=== PATIENT | male | born 1955 | race Caucasian/White ===

== ENCOUNTER 2017-01-20 10:00 | Inpatient (IN) | payer OTHER ==
[2017-01-20] VITALS (18 sets, daily range): BP systolic 59–201; BP diastolic 44–117; PULSE 42–105; RESP 22–33; O2SAT 82–100
[~2017-01-20] VITALS: Ht 188 cm; Wt 100.1 kg
[~2017-01-20 10:00] MED LIST: ACET-1890 PO; ASPI81TA3 PO; ATOR40TA69 PO; CLOP75TA3 PO; ISOS30TA PO; LISI-571 PO
--- NOTE | 2017-01-20 10:02 | ED.REPORT ---
HPI-Cardiac Arrest Date of Service Jan 20, 2017 ED Provider: Dr. Bueno Pt is a 61 year old male who presents to the ED via EMS post-arrest, intubated and unconscious. Per EMS, he was complaining of chest pain for the last couple of days. Today, he took nitroglycerin, and 5 minutes later he lost consciousness. The family was unable to start chest compressions, for they were unable to transport him from the cough to the floor. EMS arrived on the scene and began chest compressions. It was noted that he was in v-fib arrest. He was shocked several times and successfully intubated. He began spontaneously breathing on his own, per EMS he was then sedated. Nursing Notes Stated Complaint: POST CPR Nursing Notes Reviewed: Yes Allergies: Coded Allergies: No Known Allergies (Unverified , 05/16/14) Scheduled Aspirin Chew (Aspirin Chew) 81 Mg Tab.chew 81 MG PO DAILY Atorvastatin Calcium (Atorvastatin Calcium) 40 Mg Tablet 40 MG PO DAILY Clopidogrel Bisulfate (Plavix) 75 Mg Tablet 75 MG PO DAILY Isosorbide Mononitrate (Imdur) 30 Mg Tab.er.24h 30 MG PO DAILY Lisinopril (Lisinopril) 5 Mg Tablet 5 MG PO BID Scheduled PRN Acetaminophen (Tylenol) 325 Mg Tablet 650 MG PO PRN For Pain General Time Seen by Provider: 10:08 Chief Complaint Cardiac arrest, found dwn Down Time Prior to EMS: Unknown Total Time Arrest to Arrival: Unknown Context: Resuscitation: Initial rhythm V Fib Hx Obtained From: EMS Arrived By: Ambulance Onset Occurred: Just prior to arrival Symptom Duration: Since onset Progression Since Onset: Unchanged Similar Sx Previous: Yes Past Medical History Past Medical History NSTEMI in 2013 Reports: Coronary artery disease Smoking History Current Every Day Smoker Ambulatory Status Independent Review of Systems Unable to Obtain ROS Patient condition, Intubated Complete sys rev & neg: except as marked. Physical Exam Initial Vital Signs Vital Signs (First) Date Time Temp Pulse Resp B/P Pulse Ox O2 Delivery O2 Flow Rate FiO2 01/20/17 10:09 78 24 175/97 82 Mechanical Ventilator 01/20/17 10:32 34.1 See paper chart Initial VS: Reviewed Alertness: Positive: Sedated Intubated Unconsious Respiratory / Chest: Breath sounds = bilat Resp Distress / Stridor: Positive: Intubated Cardiovascular: Heart rate NL, Regular rhythm, Heart sounds NL Abdomen: Atraumatic, Soft, Non-tender, No guarding, No rebound Interpretation & Diagnostics Lab Results Interpretation Result Diagram: 01/20/17 1010 01/20/17 1010 Test 01/20/17 10:10 White Blood Count 17.2th/mm3 (3.8-10.1) Red Blood Count 5.37mil/mm3 (4.40-5.80) Hemoglobin 17.0g/dL (13.8-17.2) Hematocrit 50.6% (41.0-50.0) Mean Corpuscular Volume 94.2fL (81-100) Mean Corpuscular Hemoglobin 31.7pg (27.0-35.0) Mean Corpuscular Hemoglobin Concent 33.6% (32.0-37.0) Red Cell Distribution Width 12.4% (12.3-15.4) Platelet Count 149bil/L (150-400) Neutrophils (%) (Auto) 52.7% (40-74) Lymphocytes (%) (Auto) 33.8% (14-46) Monocytes (%) (Auto) 5.0% (4-12) Eosinophils (%) (Auto) 1.6% (0-5) Basophils (%) (Auto) 0.5% (0-3) Prothrombin Time 11.7sec (8.1-12.5) Prothromb Time International Ratio 1.09ratio Activated Partial Thromboplast Time 26.4sec (22.8-33.0) Sodium Level 137mEq/L (134-144) Potassium Level 4.3mEq/L (3.5-5.2) Chloride Level 96mEq/L (97-108) Carbon Dioxide Level 16mmol/L (18-29) Blood Urea Nitrogen 20mg/dL (8-27) Creatinine 1.20mg/dL (0.76-1.27) Estimat Glomerular Filtration Rate 65mL/min (>59) Glucose Level 335mg/dL (60-99) Calcium Level 8.1mg/dL (8.5-10.1) Magnesium Level 2.3mg/dL (1.6-2.6) Total Bilirubin 0.6mg/dL (0.0-1.2) Aspartate Amino Transf (AST/SGOT) 126U/L (0-50) Alanine Aminotransferase (ALT/SGPT) 65U/L (0-44) Alkaline Phosphatase 71U/L (25-160) Troponin T 0.010ug/L (0.0-0.011) Pro-B-Type Natriuretic Peptide 167.4pg/mL (0-210) Total Protein 6.2g/dL (6.4-8.4) Albumin 3.6g/dL (3.4-5.0) Lab Results Interpretation: Reviewed chemical checker rhythm strip - coarse v-fib identified Blood Gas Report: pH - 7.068 pCO2 - 72 pO2 - 91.5 cHCO3 - 20.7 cBase - -9.9 ECG Interpretation ECG Interpretation: SR - [address] depressions, laterally Time: 10:11 Interpreted by: ED physician X-Ray Chest Interpretation Chest Xray Interpretation: IMPRESSION: Question of early asymmetric pulmonary edema versus pneumonia right chest greater than left. Dictated by: Emiliano Palencia M.D. on 01/20/2017 at 10:27 View: Portable Interpretation / Wet Read by: Interpret - Radiologist CT Head Interpretation IMPRESSION: No acute intracranial abnormality is identified in this patient status post cardiac arrest. Dictated by: Emiliano Palencia M.D. on 01/20/2017 at 11:05 Interpretation / Wet Read by: Interpret - Radiologist Re-Eval/Medical Decision Med Decision/Clinical Course Primary V. fib arrest which was preceded by chest pain. Patient arrives, after head CT is performed and there are no obvious contraindications, cooling protocol was initiated. Multiple conversations with cardiology regarding emergent angiography. Patient is transferred from the ER to the Angio suite. Source of Hx: Old records, EMS Re-Evaluation/Progress : Time of Eval: 10:41 Re-Evaluation/Progress Note: Dr. Killian confirmed pt's transport to the [facility]. Pt's family is informed of the plan, they are agreeable. All questions are addressed. Consultation #1: Referral / Consult Name: Michele Killian MD Consulted With: Cardiology Call Returned at: 10:16 Label Printing Machinist: Agrees with eval, Agrees with plan Note: Suggests calling interventional cardiolgy Consultation #2: Referral / Consult Name: Naeem Moya MD Consulted With: Cardiology Call Returned at: 10:22 Label Printing Machinist: Agrees with eval, Agrees with plan Note: Suggesting calling Dr. Killian Consultation #3: Referral / Consult Name: Franck Wood MD Consulted With: Hospitalist Call Returned at: 10:57 Label Printing Machinist: Will see patient, Agrees with plan, Accepts admit Counseled Regarding: Diagnosis, Lab results, Need for admission Discharge & Departure Impression: Primary Impression: Cardiac arrest Disposition: ADMITTED TO HOSPITAL All VS Reviewed: Yes Condition: Stable Referrals: Maurice Ambriz MD (PCP) Crit Care Except Billable Proc Time Spent: 30-74 minutes Services Performed: Patient management by me, Time spent at bedside, Reviewing test results, Reviewing imaging, Discussing patient care, Documentation in record, Time with fam/surrogate Critical Care Notes: See MDM Scribe Attestation Portions of this note were transcribed by Luna Alicia. I, Dr. Bueno personally performed the history, physical exam and medical decision-making; I reviewed and confirmed the accuracy of the information in the transcribed note. Signed by: Jasper Knox, 01/20/2017 10:55 copies to: Maurice Ambriz MD, Timothy S DO Jan 20, 2017 10:02 JASWANT ALICIA Jan 20, 2017 10:11
[2017-01-20] MEDS ORDERED: Midazolam Inj 100 MG in IV Premix 1 EACH IV SCH (10:08)
[2017-01-20] MEDS ORDERED: Amiodarone 360 mg/200 mL D5W 360 MG in IV Premix 1 EACH IV SCH (10:10)
[2017-01-20] MEDS ORDERED: 0.9% Sodium Chloride 1,000 ML IV SCH (10:10)
[2017-01-20] MEDS ORDERED: 0.9% Sodium Chloride 1,000 ML IV ONE ×2 (10:10→17:30)
[2017-01-20] MEDS ORDERED: Amiodarone 150 mg/100 mL D5W Premix IV ONE (10:23)
--- NOTE | 2017-01-20 10:32 | DRSVH ---
PROCEDURE: X-RAY CHEST ONE VIEW, PORTABLE ([id number]) INDICATIONS: cp TECHNIQUE: One view of the chest was acquired. COMPARISON: [facility], , CHEST 1 VIEW, 05/16/2014, 7:08. FINDINGS: Surgical changes and devices: Endotracheal tube is 5.9 cm above the jerson. There is an NG tube into the stomach. Lungs and pleura: No effusion or pneumothorax. There is prominent increased markings in the right reena st compared to minimal increase in the left chest. Minimal thickening of the minor fissure is present . The appearance could be due to pneumonia or to early asymmetric pulmonary edema as less likely. Mediastinum: Mediastinal contours appear normal. Heart size is normal. Bones and chest wall: No suspicious bony lesions. Overlying soft tissues appear unremarkable. IMPRESSION: Question of early asymmetric pulmonary edema versus pneumonia right chest greater than le ft. Dictated by: Emiliano Palencia M.D. on 01/20/2017 at 10:27 Approved by: Emiliano Palencia M.D. on 01/20/2017 at 10:29
[2017-01-20 10:41] LABS: INR 1.09 ratio
[2017-01-20 10:44] LABS: BASOPHILS % (AUTO) 0.5 % (0-3); EOSINOPHILS % (AUTO) 1.6 % (0-5); Mean Corpuscular Hemoglobin 31.7 pg (27.0-35.0); Mean Corpuscular Volume 94.2 fL (81-100); NEUTROPHILS % (AUTO) 52.7 % (40-74); Platelet Count 149 bil/L (150-400)
[2017-01-20 10:50] LABS: TROPONIN T 0.01 ug/L (0.0-0.011)
[2017-01-20] MEDS ORDERED: Nitroglycerin 50,000 mcg/250 mL D5W Premix IV ONE (10:53)
[2017-01-20] MEDS ORDERED: Heparin 1,000 Units/500 mL NS Premix IV ONE (10:53)
[2017-01-20] MEDS ORDERED: Heparin 10,000 Unit/1,000 mL NS Premix IV ONE (10:54)
[2017-01-20] MEDS ORDERED: Heparin 1,000 Unit/mL 10 mL Inj ONE (10:54)
[2017-01-20] MEDS ORDERED: MeTOProlol 1 mg/mL 5 mL Inj IVPUSH SCH (10:55)
[2017-01-20 11:01] LABS: Magnesium 2.3 mg/dL (1.6-2.6)
[2017-01-20] MEDS ORDERED: Furosemide 10 mg/mL 4 mL Inj IVPUSH ONE (11:05)
[2017-01-20] MEDS ORDERED: Piperacillin-Tazo 3.375 Gm Inj 3.375 GM in Dextrose 5% Minibag Plus 50 ML IV ONE (11:05)
[2017-01-20] MEDS ORDERED: Rocuronium 10 mg/mL 5 mL Inj IVPUSH ONE (11:05)
--- NOTE | 2017-01-20 11:05 | ABG ---
DateTimeAnalyzed 10:56:45 -_ pH ____7.068 - 7.350 7.450 pCO2 ___71.8__ -mmHg 35.0 45.0 pO2 ___91.5__ -mmHg 69.0 116 HCO3- ___20.7__ -mmol/L 22.0 26.0 ABE ___-9.9__ -mmol/L tHb ___16.4__ -g/dL O2Hb ___88.4__ -% COHb ____5.8__ -% 1.5 MetHb ____0.1__ -% sO2 ___93.9__ -% FIO2 __100.0__ -% PEEP ___15.0__ -cmH2O Set_RR 17 -b/min Vt __550.0__ -L Drawn By as - Date/Time Notified____ 11:05:00 -_ Spontaneous_RR 25 -b/min Oxygen Device 1 VENTILATOR - Notified By ams - Notified Whom dr okelly - K+ ____4.0__ -mmol/L tO2 ___20.4__ -Vol% Franck test _Positive -
--- NOTE | 2017-01-20 11:10 | DRSVH ---
PROCEDURE: CT BRAIN WITHOUT CONTRAST ([id number]) INDICATIONS: aloc, cardiac arrest TECHNIQUE: Noncontrast 4.5 mm thick angled axial sections acquired from the foramen magnum to the vertex, with c oronal reformats. COMPARISON: None. FINDINGS: Image quality: Moderately good, patient motion CSF spaces: Basal cisterns are patent. No extra-axial fluid collections. The ventricles are symmet narayan in size and shape. Brain: No intracranial bleeds or masses. There is cerebral volume loss for age, with resultant vent ricular and sulcal prominence. There are periventricular and deep white matter chronic small vessel ischemic changes. There is intracranial internal carotid artery atherosclerosis. Skull and face: Calvarium and visualized facial bones appear intact, without suspicious lesions. Sinuses: Visualized sinuses and mastoids are clear. IMPRESSION: No acute intracranial abnormality is identified in this patient status post cardiac arres t. Dictated by: Emiliano Palencia M.D. on 01/20/2017 at 11:05 Approved by: Emiliano Palencia M.D. on 01/20/2017 at 11:08
[2017-01-20] MEDS ORDERED: 0.9% Sodium Chloride (Chilled) 2,000 ML IV ONE (11:13)
[2017-01-20] MEDS ORDERED: Norepineph 8,000 mCg/250 mL NS 8,000 MCG in IV Premix 1 EACH IV SCH (11:13)
[2017-01-20] MEDS ORDERED: 0.9% Sodium Chloride (Chilled) 500 ML IV ONE (11:13)
[2017-01-20] MEDS ORDERED: DEXTROSE IV SCH (11:13)
[2017-01-20] MEDS ORDERED: Propofol Inj 1,000,000 MCG in IV Premix 1 EACH IV PRN (11:13)
[2017-01-20] MEDS ORDERED: DOBUTAMINE IV SCH (11:13)
[2017-01-20] MEDS ORDERED: fentaNYL 2,500 mCg/250 mL 2,500 MCG in IV Premix 1 EACH IV PRN (11:13)
[2017-01-20] MEDS ORDERED: PIPERACILLIN TAZO IV ONE (11:15)
[2017-01-20] MEDS ORDERED: Heparin 25K Unit/500mL 0.45 NS 25,000 UNIT in IV Premix 1 EACH IV ONE (11:15)
[2017-01-20] MEDS ORDERED: Acetaminophen IV 1,000 MG in IV Premix 1 EACH IV ONE (11:15)
[2017-01-20] MEDS ORDERED: SODIUM CHLORIDE 0.9% IV ONE (11:15)
[2017-01-20] MEDS ORDERED: Magnesium Sulf 4 Gm/100 mL H2O 4 GM in IV Premix 1 EACH IV ONE (11:15)
[2017-01-20] MEDS ORDERED: MeTOProlol 1 mg/mL 5 mL Inj ONE (11:38)
[2017-01-20 11:57] LABS: APPEARANCE,URINE CLOUDY (CLEAR,HAZY); COLOR,URINE STRAW (YELLOW); OCCULT BLOOD,URINE LARGE (NEGATIVE); UROBILINOGEN,URINE NORMAL (NORMAL)
[2017-01-20] MEDS ORDERED: Furosemide 10 mg/mL 2 mL Inj ONE (12:00)
--- NOTE | 2017-01-20 12:00 | CONS ---
[address] [address] CONSULTATION REPORT PATIENT: ERNIE HARPER : 1955 MR#: [id number] ADMIT: 01/20/2017 JOB ID: [id number] DATE OF SERVICE: 01/20/2017 CRITICAL CARE CARDIOLOGY CONSULT: INDICATION: ER physician Dr. Elias Ervin kindly asked me to see this patient. As the patient is status post VFib cardiac arrest. The patient is intubated, sedated. I gathered information from the ER physician as well as spoke to patient's . CHIEF COMPLAINT: The patient passed out. PRESENT HISTORY: This 61 years old male who has a history of chronic tobacco abuse, elevated triglycerides, obesity, coronary persistent tobacco abuse, element of coronary spasm, history of non ST-T MT in April 2014. At that time, he had left heart catheterization which initially revealed about 60 to 70% eccentric mid circumflex. However, after giving intracoronary nitroglycerin and FFR it was not significant. LV ejection fraction 65 to 70%, nonobstructing moderate right common femoral artery disease, who has stopped taking his medications from last one year, who has been persistently smoking at least one pack per day. Had cardiac event today. According to the , about nine o'clock he asked his that he is having some discomfort in his chest. He asked for nitroglycerin. He took nitroglycerin and 5 minutes later he lost consciousness. He was sitting on a chair. held him, but she could not put him on the floor. She could not start CPR. 911 was called. It took about 5 minutes for EMS to come to the patient's house. They found him in VFib cardiac arrest. The patient had multiple shock. CPR protocol was started. Spontaneous return of circulation was obtained. The patient got intubated. The patient was brought to the [facility]. At present, he is in emergency department. He is on vent, sedated. I spoke to the . According to her, patient stopped taking his medications about a year ago. He is smoking at least one pack every day. Does not drink alcohol every day. His regular physician Dr Comer. When I asked about taking regular nitroglycerin, according to her, he was not taking regular nitroglycerin. No recent fever, chills, bleeding, or stroke-like symptoms. According to the , he does yard work. He does not complain of leg pain during yard work. PAST MEDICAL HISTORY: History of non ST-T MT in April 2014 status post left heart catheterization. Details as stated above, preserved LV function without any significant valvular pathology, suspicion for coronary spasm, peripheral arterial disease including nonobstructing right common femoral artery disease, elevated triglycerides, obesity, persistent tobacco abuse, essential hypertension. PAST SURGICAL HISTORY: Not known. ALLERGIES: As per the ER note no known allergies. MEDICATIONS: Patient was not taking any medications. SOCIAL HISTORY: As stated above. REVIEW OF SYSTEM: Patient is sedated. Detailed review of systems is not obtainable. PHYSICAL EXAMINATION: Patient is sedated and intubated. In the ER blood pressure 175/97, heart rate 78, respiratory 24. The patient is obese. At present, he is fighting with the ventilator. It is difficult to comment upon JVD, but chest has bilateral crepitations more towards the right side. CVS at present heart sounds distant. Difficult to comment upon S3, S4. P2 does not appear to be loud. I do not appreciate any significant murmur. Abdomen obese, no obvious pulsatile mass felt. Extremities: Mild pedal edema. I can feel distal pulses. Vascular no evidence of critical limb ischemia. SOUND RANGING CREWMEMBER could not be examined because the patient is sedated. IMAGING PROCEDURE: EMS EKG revealed VFib. The EKG done in the ER at about 10:11 a.m. revealed likely wandering pacemaker with heart rate about 65 with left anterior fascicular block which is old. Poor R-wave progression with some nonspecific ST-T changes. I do not see any significant ST elevation. QTc 411 msec. On x-ray chest upon my interpretation appears to be cardiomegaly as well as asymmetric pulmonary edema versus pneumonia right greater than left. LABORATORIES: Sodium 137, potassium 4.3, BUN 20, creatinine 1.2. Glucose 335. Magnesium 2.3. Total bilirubin 0.6. AST 126. ALT 65. Troponin T 0.010. WBC 17.2, hemoglobin 17, platelets 149, polymorphs 52.7. ASSESSMENT AND PLAN: Status post ventricular fibrillation cardiac arrest with known history of non ST-T myocardial infarction in April 2014. At that time, the patient had left heart catheterization with element of spasm in the left circumflex artery without any critical coronary artery disease as well as history of tobacco abuse, hypertension, hypertriglyceridemia, persistent tobacco abuse. I discussed the case with the ED physician as well as patient's family and our wire preparation worker, Dr. Moya. Plan to perform left heart catheterization to rule out any progression of coronary artery disease. In view of ventricular fibrillation cardiac arrest with known risk factors for coronary artery disease. Benefits and risks of left heart catheterization in anticipation of revascularization which include, but not limited to, risk of bleeding, groin complication, myocardial infarction, stroke, coma, , renal insufficiency, and peripheral vascular complication, et cetera and details discussed with the patient's . She understood. All the questions were answered. Informed consent will be obtained. Further plan will be based on the result of above-mentioned diagnostic test. The patient will benefit with hypothermia protocol. ED physician will take care of it. Management of ventilator as per ICU team and the ED. Once he have CT head and if there is no bleed consider treating him for possible acute coronary syndrome. At present, patient's prognosis is poor. Condition is guarded. TIME SPENT: I spent about 70 minutes for this critical care consultation including having discussion with different physician as well as family members. We will also obtain 2D echo. IOANA
--- NOTE | 2017-01-20 13:17 | ABG ---
DateTimeAnalyzed 13:11:00 -_ pH ____7.163 - 7.350 7.450 pCO2 ___48.7__ -mmHg 35.0 45.0 pO2 116 -mmHg 69.0 116 HCO3- ___16.8__ -mmol/L 22.0 26.0 ABE __-12.2__ -mmol/L -2.0 2.0 tHb ___16.9__ -g/dL O2Hb ___93.4__ -% COHb ____2.4__ -% MetHb ____1.1__ -% sO2 ___96.8__ -% 25.0 FIO2 __100.0__ -% PRVC 650 - PEEP ___15.0__ -cmH2O Set_RR ___17.0__ -b/min Vt __650.0__ -L Drawn By jmw - Date/Time Notified____ 13:16:00 -_ Spontaneous_RR ___25.0__ -b/min Oxygen Device 1 VENTILATOR - Notified By jmw - Notified Whom DR LEGGETT - B 756 -mmHg tO2 ___22.3__ -Vol% Franck test _Positive -
[2017-01-20] MEDS ORDERED: Propofol Inj 1,000,000 MCG in IV Premix 1 EACH IV SCH (13:20)
[2017-01-20] MEDS ORDERED: Sodium Chloride LOK Flush 10 mL Syringe IVFLUSH PRN ×3 (13:45→14:00)
[2017-01-20] MEDS ORDERED: DOBUTamine 500 mg/250 D5W 500,000 MCG in IV Premix 1 EACH IV PRN (13:59)
[2017-01-20] MEDS ORDERED: Norepineph 8,000 mCg/250 mL NS 8,000 MCG in IV Premix 1 EACH IV PRN (13:59)
[2017-01-20] MEDS ORDERED: Alum-Mag Hydrox-Simeth 30 mL Suspension PO PRN (14:00)
[2017-01-20] MEDS ORDERED: Calcium GLUCOnate 10% (Gm) 1 Gm/10 mL Inj IV PRN (14:00)
[2017-01-20] MEDS ORDERED: Ondansetron 2 mg/mL 2 mL Inj IVPUSH PRN ×2 (14:00)
[2017-01-20] MEDS ORDERED: Dexmedetomidine Inj 400 MCG in 0.9% Sodium Chloride 100 ML IV PRN (14:00)
[2017-01-20] MEDS ORDERED: Magnesium Sulf 4 Gm/100 mL H2O 4 GM in IV Premix 1 EACH IV PRN (14:00)
[2017-01-20] MEDS ORDERED: Atropine 1 mg/10 mL (Code) Syringe IVPUSH PRN (14:00)
[2017-01-20] MEDS ORDERED: Acetaminophen IV 1,000 MG in IV Premix 1 EACH IV PRN (14:00)
[2017-01-20 14:02] LABS: INR 1.12 ratio
--- NOTE | 2017-01-20 14:09 | CS94 ---
[address] [address] DIAGNOSTIC CARDIAC CATHETERIZATION PATIENT: ERNIE HARPER : 1955 MR#: [id number] ADMIT: 01/20/2017 JOB ID: [id number] SERVICE DATE: 01/20/2017 INDICATION: This 61-year-old, male with history of chronic tobacco abuse, noncompliant with medications, hypertension, hypertriglyceridemia, persistent tobacco abuse, history of non ST-T IN in April 2014. At that time, patient has moderate mid circumflex disease with evidence of vasospasm, status post left heart catheterization which initially revealed 60% to 70% eccentric mid circumflex disease. However, FFR was not significant. Presented with VFib cardiac arrest. The patient was taken to the laboratory miller to rule out significant coronary artery disease. Benefits and risks of left heart catheterization in anticipation of revascularization discussed with the patient's , which include but are not limited to risk of bleeding, groin complication, myocardial infarction, stroke or , renal insufficiency, and peripheral vascular complication, etc. An informed consent was obtained. She verbalizes all the understanding. All the questions were answered. QUALITY SYSTEMS MANAGER: Michele Killian MD. PROCEDURE PERFORMED: 1. Left heart catheterization. 2. Coronary arteriography. 3. Left ventricular pressure measurement. 4. Right femoral vein access. PROCEDURE: Left groin was cleaned, prepped, and draped in the usual sterile fashion. The skin and subcutaneous tissue was anesthetized with 1% lidocaine. In that attempt of left femoral artery access, we got initially venous access with micropuncture needle. Using modified Seldinger technique overall 5-Solomon Islander sheath was introduced into the right femoral vein. Then right femoral artery was accessed. A 6-Sol[place] Islander sheath was introduced into the right femoral artery using modified Seldinger technique. The left coronary artery and the right coronary artery were engaged with 6-Sol[place] Islander JL4 and JR4 catheters, respectively. Left ventricular pressure measurement were done with 6-Solomon Islander pigtail catheter. All the catheters were advanced over the guidewire and flushed with heparinized saline. All the exchanges were made over the guidewire. Total 80 cc Isovue 370 dye was used. The patient tolerated the procedure. There was no immediate complication. HEMODYNAMICS: LV systolic pressure about 156 mmHg. Aortic pressure 156/87 mmHg. LVEDP about 26-27 mmHg. Hence, left ventriculography was not performed. CORONARY ARTERIOGRAPHY: 1. Left main artery. The left main artery is a short artery and was free of any significant disease. 2. Left anterior descending artery. The left anterior descending artery is a tortuous artery. It wraps around the apex. Distally it tapers to a small vessel. I do not see any critical focal stenosis. Diagonal branch does not have any critical focal stenosis. 3. Left circumflex artery. The left circumflex artery in the mid portion harbors about 70% to 80% disease. The patient was given 200 mcg of intracoronary nitroglycerin and repeat injection revealed still 60% to 70% eccentric mid circumflex disease. Distally there was ADAM-3 flow. Distally, I do not see any critical disease. 4. Right coronary artery. The right coronary artery is a dominant artery and harbors mild luminal irregularities and was free of any significant disease. CONCLUSION: About 60% to 70% mid circumflex disease after 200 mcg of intracoronary nitroglycerin with some element of spasm as well. There is distally ADAM-3 flow. LAD and dominant right coronary artery does not have any critical disease. Left main does not have any critical disease. Elevated LVEDP. Discussed with Dr. Moya. In the laboratory miller, we found that patient has blood in NG tube. At this point of time, plan is to treat him medically. If no further GI bleed and hemoglobin remains stable, Dr. Moya can plan PCI of the circumflex artery, or if needed FFR maybe tomorrow depending upon the patient's clinical condition. Will also get 2D echo to assess his LV function.
--- NOTE | 2017-01-20 14:11 | DRSVH ---
[facility] [address] [address] Echocardiogram Report Name: ERNIE HARPER te: 01/20/2017 Height: 74 in Hospital Exam Location: [facility] Weight: 235 lb Gender: Male BSA: 2.3 m2 : 1955 Age: 61 yrs BP: 188/104 mmHg Reason For Study: Cardiac Arrest Ordering Physician: You Hodge Performed By: Daxa Allen Referring Physician: YOU HODGE Interpretation Summary The study quality was technically difficult. The ejection fraction is estimated to be 35-40%. There is moderate global hypokinesis of the left ventricle. There is inferior wall severe hypokinesis. Wall motion abnormalities are new. Compared to the prior exam, left ventricular function is significantly decreased. The right ventricle is grossly normal size. Right ventricular systolic function is mild to moderately reduced (New). There is trace tricuspid regurgitation. Right ventricular systolic pressure is estimated to be 17.2 mmHg plus the clinically estimated CVP which cannot be estimated on this exam. Procedure: A two-dimensional transthoracic echocardiogram with color flow and Doppler was performed in limited views only. The study quality was technically difficult. The apical views were difficult to obtain and are suboptimal in quality. The patient was imaged in the supine position and was intubated. Limited echocardiographic imaging windows were available. Comparison is made with the echocardiogram of 05/16/2014. The patient was in normal sinus rhythm during the exam. Left Ventricle: The left ventricle is grossly normal size. Proximal septal thickening is noted. There is no thrombus. The ejection fraction is estimated to be 35-40%. Compared to the prior exam, left ventricular function is significantly decreased. There is moderate global hypokinesis of the left ventricle. There is inferior wall severe hypokinesis. There is a mild dyssynchronous contraction pattern, consistent with a conduction abnormality. Diastolic function could not be accurately assessed due to unobtainable data. Right Ventricle: The right ventricle is grossly normal size. The right ventricle appears to be hypertrophied. Right ventricular systolic function is mild to moderately reduced. Atria: The left atrium grossly appears normal in size. The right atrium grossly appears normal in size. Mitral Valve: The mitral valve is grossly normal. The mitral valve leaflets are slightly calcified. There is trace mitral regurgitation. Aortic Valve: The aortic valve is not well visualized. There is no hemodynamically significant valvular aortic stenosis. No aortic regurgitation is present. Tricuspid Valve: The tricuspid valve is not well visualized, but is grossly normal. There is trace tricuspid regurgitation. Right ventricular systolic pressure is estimated to be 17.2 mmHg plus the clinically estimated CVP which cannot be estimated on this exam. Pulmonic Valve: The pulmonic valve is not well visualized. Great Vessels: Inspiratory collapse cannot be assessed because of mechanical ventilation, thus CVP cannot be estimated.. Pericardium/ Pleura There is no pericardial effusion. There is an anterior echo-free space consistent with a fat pad. There is no pleural effusion. Doppler Measurements & Calculations TR max yo: 206.9 cm/sec TR max P.2 mmHg Reading Physician:LEROY
--- NOTE | 2017-01-20 14:15 | PCM.HPMED ---
Subjective Date of Service Jan 20, 2017 Primary Provider: Admitting Physician: Franck Wood MD Primary Care Physician: Maurice Ambriz MD Attending Physician: Franck Wood MD Admit Status: From the Emergency Department, Critical Care Chief Complaint: Chest pain History of Present Illness: This is a 61-year-old woman with known history of CAD who had an admission for chest pain about 3 years ago with an angiogram revealing nonobstructive coronary artery disease. He was placed on a medical regimen for medical management and continued this until about a year ago. That time he elected to stop because he did not think it was making much of a difference. Today he had developed some indigestion and chest pressure. He took a nitroglycerin had minimal improvement and then collapsed. His notes a 920 in the morning called 911 and the deputy sheriff bailiff responded within about 5 minutes. No bystander CPR occurred. The deputy sheriff bailiff to start CPR paramedics arrived shortly thereafter. The patient had ongoing CPR for unclear amount of time and then had defibrillation 2 with ROSC. believes it was about 9:20 AM on the defibrillations were completed. The patient had no meaningful movements or interactions that time. He had been intubated and was taken to the emergency department. He was sedated field. In the emergency department he had an abnormal EKG and was seen by cardiology. He was then placed on the hypothermia protocol and taken to the coronary catheterization lab. There is good indicated significant circumflex disease but no angioplasty or PCI followed. The patient was then brought for already into his hypothermia protocol. The patient was on propofol as well as fentanyl at that point. The patient is also noted to have some froth in his endotracheal tube and required FiO2 of 1.0. There is a concern for pulmonary edema. The patient is said to continue to smoke a daily basis. The patient's family provided most of the information as well as the emergency physician. Patient is intubated and sedated on the hypothermia protocol Review of systems and subjective not otherwise obtainable. Review of Systems: Not obtainable, patient is intubated. Allergies Coded Allergies: No Known Allergies (Unverified , 05/16/14) Home Medications None for the last year PMH Coronary artery disease on medical management Tobacco dependence with a long history of tobacco use, still active. Surgical History History of coronary angiogram 3 years ago Family History Tobar for atrial fibrillation, CAD with myocardial infarction Social History Occupation: retired Hx Alcohol Use: Yes Hx Substance Use: No Hx Tobacco Use: Yes Smoking Status: Current Every Day Smoker Living Arrangement: with Family Exam Vital Signs Vital Sign - Last Date Time Temp Pulse Resp B/P Pulse Ox O2 Delivery O2 Flow Rate FiO2 01/20/17 13:38 60 87/57 100 100 01/20/17 11:10 35.6 26 Mechanical Ventilator Exam Patient is intubated and sedated. Endotracheal tube and OG tube in place. There is some bright red blood in the OG tube. Pupils are symmetric and conjugate. Normal skull. Normal nose and ears. Anicteric sclera, symmetric pupils Oropharynx is unremarkable, no facial droop. Neck is supple, normal thyroid. No adenopathy. Lungs are clear, normal effort rate. Some expiratory wheezing. Heart is regular without murmur gallop or rub. Abdomen soft, nondistended or tender. Extremities are free of pedal edema. Good radial and pedal pulses. Skin is free of rash, lesions. No petechiae or ecchymosis. Joints are grossly normal. Cranial nerves are grossly normal. Motor strength is not assessable. Normal muscular tone. Lab and Diagnostics Result Diagram: 01/20/17 1010 01/20/17 1010 X-Rays, CTs and MRIs Chest x-ray reveals mild pulmonary edema CT of the brain is unremarkable 12-lead ECG Sinus rhythm at [address] depressions in leads V3 and V4 and V5. The patient also has a flat T wave in. Left anterior Fascical block. Assessment & Plan #. Cardiac arrest, ventricular fibrillation. Prior to arrival. The patient was resuscitated and defibrillated. The patient arrived in the ED with unclear neurologic function in context of a potential prolonged ROS see. The patient was started on the hypothermia protocol and seen by cardiology. Patient was taken to the Artificial Intelligence Specialist and underwent an angiogram revealing nonobstructive noncritical circumflex disease. No other interventions followed. The patient be managed medically night. The patient does have bright red blood in his NG tube. We will hold off on a heparin drip for that reason. There is a plan of probable repeat angiogram in the morning to reassess a circumflex lesion. The patient will complete the hypothermia protocol and sedation will be orchestrated by the critical care assurance specialist. This will include propofol, Versed, and fentanyl drips. We will also place a PICC. #. Coronary artery disease, present on admission. At this point is unclear if the patient had ischemia versus NSTEMI. The patient was given aspirin in the emergency department and will have trended troponins as well as beta-blockade provided at this time. We will hold off on dual antiplatelet agents and heparin until we have a better idea of how much is coming out of the nasogastric tube #. Acute pulmonary edema with acute respiratory failure and hypoxia, present on admission. This likely represents ventricular dysfunction. Will maintain him on mechanical ventilation and wean FiO2 as able as well as PEEP. We will diurese when able. #. Possible upper GI bleed, POA. At this point the patient is not stable for endoscopy. We will follow hematocrit, start a PPI twice a day, and transfuse as needed to support a hematocrit of over 27. #. Prophylaxis. The patient will have SCDs on for mechanical prophylaxis but will hold heparin given his possible upper GI bleed. Patient will be on GI prophylaxis as treatment for potential upper GI as well. Patient is full resuscitation He is admitted to inpatient status with expected length of stable for 2 nights. Pain Evaluation: Adequate Pain Control Resuscitation Status: CPR: Attempt Resuscitation Time spent 60 minutes Franck Wood MD Jan 20, 2017 14:14
[2017-01-20 14:23] LABS: Magnesium 2.3 mg/dL (1.6-2.6); Phosphorus 7.4 mg/dL (2.5-4.9)
[2017-01-20 14:44] LABS: TROPONIN T 0.876 ug/L (0.0-0.011)
--- NOTE | 2017-01-20 14:50 | DRSVH ---
PROCEDURE: X-RAY PICC LINE PLACEMENT BY NURSE ([id number]) INDICATIONS: access COMPARISON: None. FINDINGS: PICC was placed by the intravenous therapy team from the right side. Fluoroscopic spot fi lm demonstrates tip of PICC in the superior vena cava near its junction with the right atrium. IMPRESSION: Tip of PICC lies within the superior vena cava. Dictated by: Emiliano Palencia M.D. on 01/20/2017 at 14:48 Approved by: Emiliano Palencia M.D. on 01/20/2017 at 14:48
--- NOTE | 2017-01-20 15:21 | CONS ---
[address] [address] CONSULTATION REPORT PATIENT: ERNIE HARPER : 1955 MR#: [id number] ADMIT: 01/20/2017 JOB ID: [id number] DATE OF SERVICE: 01/20/2017 REQUESTING PHYSICIAN: [facility]. REASON FOR CONSULTATION: Out of hospital cardiac arrest with acute respiratory failure. HISTORY OF ILLNESS: The patient is a 61-year-old, obese smoker with a prior history of coronary artery disease, who presented after losing consciousness at home today after complaining of chest pain. First responders arrived within minutes to find him in ventricular fibrillation. There had been no bystander CPR inititated. Several rounds of chest compressions and ACLS drug were required before return of spontaneous circulation. He was intubated and transported to [facility] emergency department. From there, he was taken to the cardiac catheterization laboratory. He had a prior left heart catheterization in 2013 following an NSTEMI and his coronary anatomy on today's study was essentially the same as before with nonocclusive disease in the mid circumflex. He was then brought to the [facility] critical care unit and pulmonary critical care consultation was requested. The patient had already received at least a single dose of rocuronium along with unknown types and amounts of sedative drugs, and thus his neurologic exam was quite obscured. He already had cooling pads in place and it appears that the commitment had already been made to perform at least therapeutic temperature management over the next 24 hours. He was slightly asynchronous with the ventilator when first seen. History was obtained by discussion with his other clinicians in view and review of records. PAST MEDICAL HISTORY: 1. Ongoing smoker, fci, but no clear diagnosis of chronic lung disease. 2. Coronary artery disease. a. Status post NSTEMI in 2013. b. Left heart cath at that time showed preserved left ventricular systolic function and nonocclusive disease in the mid circumflex. 3. Dyslipidemia. 4. Hypertension. OUTPATIENT MEDICATIONS: Prescribed were: 1. Aspirin 81 mg daily. 2. Atorvastatin 40 mg at h.s. 3. Clopidogrel 75 mg daily. 4. Imdur 30 mg daily. 5. Lisinopril 5 mg daily. DRUG ALLERGIES: None known. SOCIAL HISTORY: Reportedly he is . He continues to smoke at least one pack a day. I have no information regarding alcohol or substance abuse history. FAMILY HISTORY/REVIEW OF SYSTEMS: Not obtainable as patient is intubated and sedated. PHYSICAL EXAMINATION: Reveals a well-developed, well-nourished, adult male, orotracheally intubated. His blood pressure initially is 120/70 but rapidly falls to 70/50 before improving after fluid bolus and initiation of norepinephrine. His current temperature was 34.6, as cooling had begun. Heart rate is 90 and regular, respirations are 22 on a ventilator, rate of 22, and his O2 saturations 100%. HEENT exam: Gaze appears conjugate. Conjunctivae are not injected. Sclerae anicteric. Pupils appear equal at 4 mm and sluggishly reactive. The neck shows a midline trachea. Thyroid not palpable. There is no lymphadenopathy, mass or crepitus in the neck. The chest shows diffuse fluctuance throughout the right anterior chest without definite crepitus. The left pectoral region is normal. On auscultation, he has diminished air movement anteriorly with scattered crackles. No wheezing heard. Cardiac exam: Distant regular rhythm. Normal S1, S2. No audible murmur, gallop or rub. Abdomen is slightly distended but soft. There is no mass, organomegaly, or bruits. He has rare bowel tones. Extremities are cool. He has trace edema in both lower extremities. DATABASE: Per the electronic medical record. Chest x-ray personally reviewed. The endotracheal tube tip lies slightly high, approximately 5.5 cm above the jerson. He is slightly hyperinflated. He has pulmonary alveolar filling pattern consistent with pulmonary edema, right greater than left. No effusion seen. No pneumothorax seen. No obvious subcu air on a supine AP film. His CBC shows hemoglobin 17, hematocrit of 50. WBC 17,000, and 149,000 platelets. Chemistry shows sodium 137, potassium 4.3, chloride 96, total CO2 16, BUN 20, creatinine 1.2. Random glucose 335. Lactic acid 8.7. Initial troponin 0.01. Urinalysis is unremarkable, as are pro-time and PTT. Initial blood gas showed a pH of 7.06 with a pCO2 of 72, and a pO2 of 92 at 10:56 a.m. today. Subsequent gas at 13:11 showed a pH of 7.163 with a pCO2 of 48 and a pO2 of 116. IMPRESSION: Whw-ex-gbwxveyo cardiac arrest with ventricular fibrillation. No bystander cardiopulmonary resuscitation. Time to return of spontaneous circulation is unclear but may have been as long as 20 minutes. He is now currently hemodynamically stable in sinus rhythm with labile blood pressures. There has been no obvious early-onset seizures or myoclonus and because cooling has already started, I think we will go ahead and complete that protocol. My recommended goal temp for him would be 36 degrees Centigrade because of the recent randomized trial showing no benefit to more aggressive cooling which is associated with greater complications including hypotension, bradycardia and pulmonary edema, which he already has. Furthermore, he should not receive large volumes of iced saline which is also associated with worsening or development of pulmonary edema, again which is already present. Management discussed with his admitting hospitalist team. He developed bradycardia to a heart rate of 50 as cooling was under way and while receiving very low dose of propofol and amiodarone at 1 mg/minute, I asked that his space systems operations craftsman be contacted for orders to address both the hypotension and bradycardia. The amiodarone may need to be discontinued or at least decreased and a less aggressive cooling strategy employed. RECOMMEND: 1. Therapeutic temperature management with goal temp 36 degrees centigrade x24 hours. Avoid giving large volumes of cold saline as it will exacerbate his pulmonary edema. 2. Control shivering with buspirone, single dose Demerol, sedation with propofol and/or benzodiazepines and p.r.n. magnesium, reserving neuromuscular blockade only for refractory shivering, which is typically less of a problem with a goal temp of 36. 3. Routine ICU prophylaxis. I note that he is already on cardiac heparin protocol. Thus, he just requires some GI prophylaxis to complete the prophylactic bundle. 4. Rewarming at 24 hours. Maintain normothermia for at least the next 72 hours. Awakening trial after completion of the first 24 with a spontaneous breathing trial, if he appears appropriate at that time. 5. Additional measures per his primary admitting team and Cardiology. Thank you for requesting pulmonary critical care consultation. We will continue to follow with you while he remains intubated. MARAD
[2017-01-20] MEDS: fentaNYL 2,500 mCg/250 mL 2,500 MCG in IV Premix 1 EACH IV SCH (15:28)
[2017-01-20] MEDS: Insulin Human REGular Inj 100 UNIT in 0.9% Sodium Chloride-Pha MIX 100 ML IV SCH (15:58)
[2017-01-20] MEDS ORDERED: Heparin 5,000 Unit/mL Inj IVPUSH PRN (16:00)
[2017-01-20] MEDS ORDERED: Piperacillin-Tazo 3.375 Gm Inj 3.375 GM in Dextrose 5% Minibag Plus 50 ML IV SCH (16:00)
[2017-01-20 17:24] LABS: INR 1.05 ratio
[2017-01-20 17:25] LABS: BASOPHILS % (AUTO) 0.1 % (0-3); EOSINOPHILS % (AUTO) 0.2 % (0-5); MONOCYTES % (AUTO) 5.8 % (4-12); Mean Corpuscular Hemoglobin 31.7 pg (27.0-35.0); Mean Corpuscular Volume 92.4 fL (81-100); NEUTROPHILS % (AUTO) 86.6 % (40-74); Platelet Count 175 bil/L (150-400)
[2017-01-20 17:30] LABS: Magnesium 3.4 mg/dL (1.6-2.6)
[2017-01-20] MEDS: Heparin 25K Unit/500mL 0.45 NS 25,000 UNIT in IV Premix 1 EACH IV SCH (17:50)
[2017-01-20] MEDS: Piperacillin-Tazo 3.375 Gm Inj 3.375 GM in Dextrose 5% Minibag Plus 50 ML IV SCH (17:55)
[2017-01-20 17:57] LABS: TROPONIN T 1.38 ug/L (0.0-0.011)
--- NOTE | 2017-01-20 18:05 | NUR ---
Admit: Pt admitted s/p Vfib arrest, went to label tacker and had no intervention, L venous sheath in place, groin checks stable. Hypothermia protocol initiated, temp 33.0 at 1430, temp did drop down to 31.4 despite warm blankets being placed. Bear Hugger machine on, temp currently 32.2. Tele SR initially, converted to ventricular rhythm for a brief time, Afib as of 1710, MD aware of rhythm changes. Vent settings 90/8/22/550, O2 sats 97%, bloody/frothy secretions per ET tube. OG tube with small amount of bloody material, guaiac sent. Cardiac Heparin gtt per protocol, Norepinephrine for cardiac support, Propofol/Fentanyl/Versed for sedation. Thermister Montilla in place, 1250mL UOP, small BM on arrival to ED. Family at bedside, updated on plan of care, Hypothermia brochure provided, care ongoing.
[2017-01-20] MEDS: Norepineph 8,000 mCg/250 mL NS 8,000 MCG in IV Premix 1 EACH IV SCH ×2 (19:11→22:35)
[2017-01-20] MEDS: Pantoprazole 4 mg/mL 10 mL Inj IVPUSH SCH (19:59)
[2017-01-20] MEDS: Propofol Inj 1,000,000 MCG in IV Premix 1 EACH IV SCH (19:59)
[2017-01-20] MEDS: LacriLube S.O.P. 3.5 Gm Ophthalmic Ointment BOTH_EYES SCH (20:30)
[2017-01-20] MEDS: Cisatracurium 2,000 mCg/mL 10 mL Inj IVPUSH PRN (21:36)
[2017-01-20 22:32] LABS: INR 1.02 ratio
[2017-01-20 22:46] LABS: Magnesium 2.6 mg/dL (1.6-2.6); Phosphorus 3.8 mg/dL (2.5-4.9)
[2017-01-20 22:55] LABS: Mean Corpuscular Volume 90 fL (81-100); NEUTROPHILS % (AUTO) 87.1 % (40-74); Platelet Count 194 bil/L (150-400)
[2017-01-20 22:57] LABS: BASOPHILS % (AUTO) 0.1 % (0-3); EOSINOPHILS % (AUTO) 0 % (0-5); MONOCYTES % (AUTO) 7 % (4-12)
[2017-01-20 22:58] LABS: TROPONIN T 0.905 ug/L (0.0-0.011)
--- NOTE | 2017-01-20 23:03 | NUR ---
shivering: Pt started shivering around 2130 [id number] bolus to Nimbex was given IV. Baseline train of four was 4/4 and after bolus was 0/4. Baseline BIS was 44 and after Nimbex bolus was 37. will continue to monitor for any further shivering.
[2017-01-21] VITALS (13 sets, daily range): BP systolic 100–140; BP diastolic 45–85; PULSE 40–62; RESP 15–22; O2SAT 98–100
[2017-01-21] MEDS: Chlorhexidine 0.12% 15 mL Oral Solution MT SCH ×7 (00:53→23:11)
[2017-01-21] MEDS: Propofol Inj 1,000,000 MCG in IV Premix 1 EACH IV SCH ×4 (01:00→21:41)
[2017-01-21] MEDS: Piperacillin-Tazo 3.375 Gm Inj 3.375 GM in Dextrose 5% Minibag Plus 50 ML IV SCH ×3 (01:59→18:47)
[2017-01-21] MEDS: Norepineph 8,000 mCg/250 mL NS 8,000 MCG in IV Premix 1 EACH IV SCH ×3 (01:59→14:41)
[2017-01-21 04:23] LABS: Mean Corpuscular Hemoglobin 31.1 pg (27.0-35.0); Mean Corpuscular Volume 88 fL (81-100); Platelet Count 177 bil/L (150-400)
[2017-01-21 04:24] LABS: BASOPHILS % (AUTO) 0.1 % (0-3); EOSINOPHILS % (AUTO) 0 % (0-5); MONOCYTES % (AUTO) 5.9 % (4-12); NEUTROPHILS % (AUTO) 87.6 % (40-74)
[2017-01-21 04:43] LABS: INR 0.95 ratio
[2017-01-21 05:00] LABS: Magnesium 2.5 mg/dL (1.6-2.6); Phosphorus 2.8 mg/dL (2.5-4.9)
[2017-01-21 05:06] LABS: TROPONIN T 0.463 ug/L (0.0-0.011)
[2017-01-21] MEDS: Cisatracurium 2,000 mCg/mL 10 mL Inj IVPUSH PRN ×2 (05:48→10:45)
--- NOTE | 2017-01-21 05:50 | NUR ---
BP/cardiac: Pt has held a steady BP did titrate down to .3mcg/kg/min and had no trouble maintaining a MAP>80. Pt did convert into junctional rhythm and was able to get EKG to confirm rhythm.
--- NOTE | 2017-01-21 07:52 | ABG ---
DateTimeAnalyzed 07:43:29 -_ pH ____7.264 - pCO2 ___42.0__ -mmHg pO2 ___36.8__ -mmHg HCO3- ___19.0__ -mmol/L 22.0 26.0 ABE ___-7.5__ -mmol/L tHb ___15.1__ -g/dL O2Hb ___63.8__ -% COHb ____1.5__ -% 1.5 MetHb ____0.2__ -% sO2 ___64.9__ -% FIO2 ___90.0__ -% PEEP ____8.0__ -cmH2O Set_RR 22 -b/min Vt __550.0__ -L Drawn By as - Date/Time Notified____ 07:52:00 -_ Spontaneous_RR 22 -b/min Oxygen Device 1 VENTILATOR - Notified By ams - Notified Whom dr kendregan - K+ ____3.6__ -mmol/L tO2 ___13.5__ -Vol% Franck test N/A -
[2017-01-21] MEDS: Pantoprazole 4 mg/mL 10 mL Inj IVPUSH SCH ×2 (08:26→16:26)
[2017-01-21] MEDS: LacriLube S.O.P. 3.5 Gm Ophthalmic Ointment BOTH_EYES SCH ×2 (09:25→19:39)
[2017-01-21 10:32] LABS: Magnesium 2.4 mg/dL (1.6-2.6)
--- NOTE | 2017-01-21 10:40 | ABG ---
DateTimeAnalyzed 10:32:08 -_ pH ____7.298 - 7.350 7.450 pCO2 ___36.2__ -mmHg 35.0 45.0 pO2 125 -mmHg 69.0 116 HCO3- ___17.7__ -mmol/L 22.0 26.0 ABE ___-8.0__ -mmol/L tHb ___14.4__ -g/dL O2Hb ___98.0__ -% COHb ____1.6__ -% 1.5 MetHb ____0.0__ -% sO2 ___99.5__ -% FIO2 ___90.0__ -% PEEP ____8.0__ -cmH2O Set_RR 22 -b/min Vt __550.0__ -L Drawn By as - Date/Time Notified____ 10:40:00 -_ Spontaneous_RR 22 -b/min Oxygen Device 1 VENTILATOR - Notified By ams - Notified Whom Kori Cook, RN - K+ ____3.5__ -mmol/L tO2 ___20.1__ -Vol% Franck test N/A -
[2017-01-21] MEDS: Midazolam Inj 100 MG in IV Premix 1 EACH IV PRN (10:44)
--- NOTE | 2017-01-21 11:16 | NUR ---
NUTRITION ASSESSMENT Assess: 61 YO M admitted to CCU with STEMI, currently on hypothermia protocol. Pt has been NPO X 1 day. PMHX: CAD, tobacco use, HTN, dyslipidemia, NSTEMI. DIET: NPO. LABS: Glu 165, Lactic acid 3.4, Ca 7.3, AST 94, ALT 59, Alb 3.2 MEDICATIONS: Reviewed. Pressor, Fentanyl, Insulin, Propofol. GI: No BM noted. SKIN: No issues noted. ANTHROPOMETRICS: Wt: 108.2 kg, BMI 30.6 kg/m2, IBW: 86.4 kg. ESTIMATED NEEDS: VENT/BMI Calories: 1476-2997 kcal/day (20-22 kcal/kg BW) Protein: 130-155 g/day (1.5-1.8 g/kg IBW) Fluids: 2705 ml/day NUTRITION DIAGNOSIS: 1) Inadequate oral intake related to decreased ability to consume sufficient energy as evidenced by NPO/Vent status. INTERVENTION: 1) Will await plan of care decisions, if pt remains intubated recommend starting nutrition support in the next 24-48 hours pending completion of hypothermia protocol. MONITOR/EVALUATE: NPO/Vent status, nutrition support, POC, GI, labs, nutrition status. Follow per high nutrition risk guidelines.
[2017-01-21] MEDS ORDERED: Lactated Ringer's 1,000 ML IV ONE (11:45)
[2017-01-21] MEDS ORDERED: 0.9% Sodium Chloride 1,000 ML IV ONE (11:45)
[2017-01-21] MEDS ORDERED: Calcium GLUCO 10% (Gm) Inj 1 GM in 0.9% Sodium Chloride 50 ML IV ONE (11:55)
[2017-01-21] MEDS ORDERED: Lactated Ringer's 1,000 ML IV PRN (13:29)
--- NOTE | 2017-01-21 13:48 | PROG NOTE ---
[address] [address] PROGRESS NOTE PATIENT: ERNIE HARPER : 1955 MR#: [id number] ADMIT: 01/20/2017 JOB ID: [id number] DATE: The patient was admitted yesterday with [id number] cardiac arrest. There was a moderate delay between the patient's cardiac arrest and heat treat operator resuscitation. He was found to be in ventricular fibrillation but unfortunately was sitting when he had his arrest and was not laid back down. He has been on cooling protocol with sedation. An echocardiogram performed yesterday demonstrated mild left ventricular systolic dysfunction. I would suggest, on my review, that the ejection fraction is probably in the range of 45%. There is mild global hypokinesis of the left ventricle, which actually looks fairly small. There is some dyskinetic wall motion noted and overall image quality is somewhat poor. I get the impression that the right ventricular systolic function is normal. No significant valvular heart disease. Cardiac catheterization yesterday is reviewed and demonstrates evidence of spasm with a fixed stenosis in the mid circumflex of about, on my review, 50% to 60%. I do not see an obvious regional wall motion abnormality in the distribution of the circumflex based on his echocardiogram. At this point, the patient remains on low-dose Levophed. He is undergoing a cooling protocol. He is due to start his warming later this afternoon and will see how he does from a neurologic standpoint over the next couple of days. From a cardiac standpoint, he is bradycardic as expected from the cooling protocol. He has been given some fluid to maintain a reasonable mean arterial pressure and central venous pressure, according to protocol. Chest x-ray is reviewed and interestingly suggests unilateral pulmonary edema, which is seen very rarely. This appears improved on the examination today. At this point, I do not have much to add to his care. From a cardiac standpoint, he should do relatively well. The alcazar factor for this gentleman will be whether or not he will be able to recover neurologically. I will be happy to follow up on his care over the next few days.
--- NOTE | 2017-01-21 14:01 | NUR ---
Social Work: Initial Assessment/Multidisciplinary Rounds D: Per EMR review, pt is a 61 year old male admitted for cath lab tech/stemi. Pt is [facility] [employer] insurance iwth no supplement; pt has no LTC or VA benefits. PCP is Maurice Ambriz MD. NOK is Humera Medel, , . Advanced directives requested. Readmit score is not entered at this time. Pt discussed in am rounds. Pt is currently in CCU, Vented and on cooling-protocol. SKIP MINER met with the patient's family at bedside. Sw role explained, contact info and d/c planning checklist provided. Prior to admission, pt was I at baseline, using no DME, and I with all self care. Pt continues to drive and had never required HH Or skilled rehab/nursing. Pt lives in [place] with his spouse. Family is tearful over current situation. SKIP MINER provided support and contact information. A: Pt who was previously I at baseline. P: Evolving; SKIP MINER to continue to follow to assess for needs and assist with discharge planning JAIME Law Addendum: 01/21/17 at 1408 by NICK COLVIN Amended: Links added.
--- NOTE | 2017-01-21 14:25 | DRSVH ---
PROCEDURE: X-RAY CHEST ONE VIEW, PORTABLE ([id number]) INDICATIONS: intubated TECHNIQUE: One view of the chest was acquired. COMPARISON: [facility], CR, XR CHEST 1VW (PORTABLE), 01/20/2017, 9:56. FINDINGS: Surgical changes and devices: ETT tip projected 5.5 cm above the jerson. Nasogastric tube traverses the GE junction. Stable positioning of right PICC tip projected over the lower SVC. Lungs and pleura: Edema has diminished and there is been interval increase in consolidation within th e left lung base. Small pleural effusions. No pneumothorax. Mediastinum: Mediastinal contours appear normal. Heart size is enlarged. Bones and chest wall: No suspicious bony lesions. Overlying soft tissues appear unremarkable. IMPRESSION: 1. Support lines and tubes as above. 2. Diminishing pulmonary edema and interval increase in airspace opacity involving the left lung base consistent with residual patchy pulmonary edema versus atelectasis or pneumonia. 3. Trace pleural effusions. Dictated by: Everett Mendosa [facility] Interpreted: Conor Philip MD on 01/21/2017 at 10:51 Approved by: Conor Philip M.D. on 01/21/2017 at 14:22
--- NOTE | 2017-01-21 14:27 | PROG NOTE ---
[address] [address] PROGRESS NOTE PATIENT: ERNIE HARPER : 1955 MR#: [id number] ADMIT: 01/20/2017 JOB ID: [id number] DATE: 01/21/2017 MECHANICAL VENTILATION MANAGEMENT FOLLOWUP NOTE: Problem list: 1. Izi-qd-mmohpcko cardiac arrest. 2. Anoxic encephalopathy. SUBJECTIVE: None. The patient currently sedated and on cooling protocol. OBJECTIVE: Temperature 32.7. Pulse 49, respiratory rate 22, ventilator set at 22. Blood pressure 115/68, O2 sat on FiO2 of 90%, PEEP of 8, is 100%. I and O shows 2.7 L in, 1.2 L out. General appearance: Sedated. Cooled on a ventilator. Chest clear anterolaterally. Heart: Regular rhythm. Heart tones normal. Abdomen soft. A few bowel tones present. Extremities: No pretibial edema. Ventilator in volume control mode. Peak inspiratory pressure 34, with plateau of 22. PEEP is set at 8, measured at 8. LABORATORY VALUES: Show a white count of 19,600 with 87 polymorphonuclears, no bands, 6 lymphs, 5 monocytes. Hemoglobin 15.3. Platelet count 177,000, relatively stable. Sodium 142, potassium 3.4, chloride 110, CO2 is 16. BUN 22, creatinine 0.9. Calcium is 6.9 with albumin of 3. Magnesium normal at 2.4. Total bilirubin 0.4. AST mildly elevated 73. ALT minimally elevated at 52. Alkaline phos normal at 45. With temperature of 33, tidal volume of 550, rate of 22, PEEP of 8, FiO2 of 0.9, pO2 is 125, pCO2 36, pH 7.29. Chest x-ray shows ill-defined opacity throughout the entire right lung. Left lung looks relatively clear. ASSESSMENT: The patient with a rather wide (A-a) DO2 gradient. Acid base status, however, relatively reasonable. Will continue current vent settings. Cooling protocol in effect at this point. Will start cooling at about 2 p.m. or so. At that time will reassess the vent settings, maybe changing from volume control mode to PRBC, although with the patient currently following the ventilator, it is of no physiologic difference. However, inspiratory flows are a bit different, though I doubt of much clinical impact. PLAN: 1. Continue current vent settings for the moment. 2. Later will consider possibly switching from volume control to PRBC mode. Discussed pulmonary status with the family. Time spent in critical care, 35 minutes.
--- NOTE | 2017-01-21 15:03 | ABG ---
DateTimeAnalyzed 14:54:00 -_ pH ____7.384 - 7.350 7.450 pCO2 ___28.0__ -mmHg 35.0 45.0 pO2 138 -mmHg 69.0 116 HCO3- ___16.4__ -mmol/L 22.0 26.0 ABE ___-7.1__ -mmol/L -2.0 2.0 tHb ___12.2__ -g/dL O2Hb ___97.1__ -% COHb ____0.7__ -% MetHb ____0.9__ -% sO2 ___98.7__ -% 25.0 FIO2 ___90.0__ -% PEEP ____8.0__ -cmH2O Set_RR ___22.0__ -b/min Vt __550.0__ -L Drawn By jmw - Date/Time Notified____ 15:02:00 -_ Spontaneous_RR ___22.0__ -b/min Oxygen Device 1 VENTILATOR - Notified By jmw - Notified Whom DR KENDREGEN - B 757 -mmHg tO2 ___16.9__ -Vol% OrderingPhysicianInitials bak - Franck test N/A -
[2017-01-21 16:51] LABS: Magnesium 3.1 mg/dL (1.6-2.6)
[2017-01-21] MEDS: fentaNYL 2,500 mCg/250 mL 2,500 MCG in IV Premix 1 EACH IV SCH (17:19)
--- NOTE | 2017-01-21 18:05 | NUR ---
P: Resp, Cardiac, Neuro, hypothemia I,E: Pt continues on the vent and FIO2 80%, rate was dropped to 18. Sats remain at 100%. Secretions have increased this afternoon, thick bloody/brown with small clot like pieces suctioned out especially after turning him and he has been coughing. He has been quite bradycardic today especially when his temp was 32.2 to 32.7 , he also has had 1st degree AVB, IVCD and prolonged QT while bradycardic. Last CI was 2.2 CVP 12 TPRI 2527. Levophed has been titrated down today to .15mcg. He has received 4 bolus's today per protocol for CVP < 14, MAP < 80. His UOP has been brisk with 1725cc out today. Pt is sedated, on fentanyl, propofol and versed. He has roused a couple of times today when we were moving him about in the bed. He appears to have purposeful movements, reaching for the tube. He is restrained to prevent him from pulling out his tubes. Pt has a cough reflex, pupils size 3 and reactive. Pt's family have been in the room with him most of the day, and are very supportive. Plan of care updated with family by MD and myself. Pt started re warming at 1430hrs and is currently at 34.1 C.
--- NOTE | 2017-01-21 18:25 | PCM.PNMED ---
Subjective Date of Service Jan 21, 2017 Subjective Overnight the patient tolerated hypothermia well. He does get bradycardic when temperature drops close to 32C. Currently be maintained at 33.3, propofol, fentanyl, Versed, and Nimbex. Arterial line placed this morning Exam Vital Signs Vital Sign - Last Date Time Temp Pulse Resp B/P Pulse Ox O2 Delivery O2 Flow Rate FiO2 01/21/17 17:15 71 139/62 100 80 01/21/17 16:00 Ventilator 01/21/17 16:00 33.1 22 Intake and Output 01/20/17 01/20/17 01/21/17 Cumulative From/Thru 15:00 23:00 07:00 01/20/17 10:09 - 01/21/17 05:48 Intake Total 1000 ml 1729 ml 3166 ml 5895 ml Output Total 1250 ml 950 ml 2200 ml Balance 1000 ml 479 ml 2216 ml 3695 ml Intake Oral 0 ml 0 ml 0 ml IV Total 1000 ml 1729 ml 3166 ml 5895 ml Output Urine Total 1250 ml 650 ml 1900 ml Gastric Drainage Total 300 ml 300 ml Exam General: Sedated male HEENT: E Tube in place, OG in place Lymph: No lymphadenopathy Cardio: Regular rate and rhythm no murmurs rubs or gallops Respiratory: CTA bilaterally, crackles Abdomen: Soft, positive bowel sounds, nontender, nondistended Extremities: No edema, sensation intact Psych: Sedated Neuro: Sedated Skin: No rash IVs and Medications Medications Reviewed: Medications were reviewed in detail Lab and Diagnostics Result Diagram: 01/21/17 0950 01/21/17 1600 X-Rays, CTs and MRIs Chest x-ray reveals mild pulmonary edema CT of the brain is unremarkable 12-lead ECG Sinus rhythm at [address] depressions in leads V3 and V4 and V5. The patient also has a flat T wave in. Left anterior Fascical block. Assessment & Plan 61-year-old male has history of CAD with stent who stopped taking his cardiac medications 1 year ago presents after V. fib arrest with approximate 5 minutes prior to CPR. Ventricular fibrillation Cardiac arrest, with pulmonary edema; present on admission; ongoing -Resuscitated with defibrillation after more than 5 minutes of rest in the sitting position -Patient taken to [facility] yesterday with possible cath today with PCI of the circumflex for noncritical disease -Unclear neurologic function, although nurse reports possible purposeful movements. -Cardiology consultation and appreciate the recommendations -Heparin drip -Hypothermia protocol with propofol, Versed, and fentanyl drips. -PICC line; arterial line -On prophylactic Zosyn -Continue on norepinephrine Acute hypoxic respiratory failure secondary to cardiac arrest; present on admission; ongoing -Patient maintained on vent per pulmonary/CCU team -Current vent settings are are Vt: 550, PEEP: 8, RR: 22, FiO2: 0.9 Coronary artery disease, present on admission; ongoing -At this point is unclear if the patient had ischemia versus NSTEMI, and troponin reached 0.9 before trending down -Aspirin suppository daily -Held off on Plavix due to upper GI bleed and ongoing evaluation by cardiology Upper GI bleed, POA; resolved -Upper GI bleed appears to resolved as blood in the OG tube has stopped -Patient does have a positive Hemoccult -Pantoprazole 40 mg twice a day Type II diabetes; present on admission; ongoing -Patient currently on insulin drip for hypothermia protocol Disposition: There is some hope that this patient may have neurologic activity; patient will start rewarming today at 1430. Will reassess over the next 48 hours. Full code Pain Evaluation: Adequate Pain Control GI Prophylaxis: Proton Pump Inhibitor VTE Mechanical Devices: Intermittant Pneumatic CD Resuscitation Status: CPR: Attempt Resuscitation Attending Statement The patient was seen and examined together with Dr. Dr. Keane on January 21 and I agree with the history, exam findings, and plan as outlined in the note above. I did participate in all aspects of the services provided today, including documentation and the plan of care. The patient is continuing with his hypothermia protocol. He requires norepinephrine. The patient be heparinized for about 24 hours for possible acute coronary syndrome as well. Dennis Keane DO Jan 21, 2017 18:25 Franck Wood MD Jan 22, 2017 14:41
--- NOTE | 2017-01-21 18:33 | PCM.PROC ---
Procedure Note Date of Service: Jan 21, 2017 Pre Procedure Diagnosis: Cardiac arrest on hypothermia Post Procedure Diagnosis: Cardiac arrest on hypothermia Procedure: R Arterial line Indication for Procedure: Blood pressure monitoring in hypothermia Recurrent arterial blood gas Procedure Details: Date: 01/21/17 Time: 10:15 Indication: Hemodynamic monitoring Resident: Dennis Keane D.O. Attending: Franck Wood M.D. (available) A time-out was completed verifying correct patient, procedure, site, positioning , and special equipment if applicable. Allens test was performed to ensure adequate perfusion. The patients right wrist was prepped and draped in sterile fashion. 1% Lidocaine was used to anesthetize the area. An arterial line was introduced into the radial artery. The catheter was threaded over the guide wire and the needle was removed with appropriate pulsatile blood return. The catheter was then sutured in place to the skin and a sterile dressing applied. Perfusion to the extremity distal to the point of catheter insertion was checked and found to be adequate . Estimated Blood Loss: 5 c.c. The patient tolerated the procedure well and there were no complications. Attending Statement The patient was seen and examined together with Dr. Keane on January 21 and I agree with the documentation in the note above I did participate in all aspects of the services provided today, including documentation and the plan of care. All aspects of the arterial line will directly supervised. There were no direct complications. Dennis Keane DO Jan 21, 2017 18:33 Franck Wood MD Jan 22, 2017 14:42
[2017-01-21] MEDS: Insulin Human REGular Inj 100 UNIT in 0.9% Sodium Chloride-Pha MIX 100 ML IV SCH (18:50)
[2017-01-21] MEDS: Heparin 25K Unit/500mL 0.45 NS 25,000 UNIT in IV Premix 1 EACH IV SCH (21:41)
--- NOTE | 2017-01-21 21:47 | ABG ---
DateTimeAnalyzed 21:41:00 -_ pH ____7.315 - 7.350 7.450 pCO2 ___35.5__ -mmHg 35.0 45.0 pO2 ___73.6__ -mmHg 69.0 116 HCO3- ___17.5__ -mmol/L 22.0 26.0 ABE ___-7.4__ -mmol/L -2.0 2.0 tHb ___12.7__ -g/dL O2Hb ___91.6__ -% COHb ____0.8__ -% MetHb ____1.1__ -% sO2 ___93.4__ -% 25.0 FIO2 ___80.0__ -% PEEP ____8.0__ -cmH2O Set_RR ___18.0__ -b/min Vt __550.0__ -L Drawn By LT - Date/Time Notified____ 21:47:00 -_ Notified By LT - Notified Whom _Karla RN - B 757 -mmHg tO2 ___16.4__ -Vol% Franck test N/A -
[2017-01-22] VITALS (12 sets, daily range): BP systolic 96–136; BP diastolic 42–70; PULSE 65–74; RESP 18; O2SAT 96–100
[2017-01-22] MEDS: Norepineph 8,000 mCg/250 mL NS 8,000 MCG in IV Premix 1 EACH IV SCH ×2 (00:36→18:20)
[2017-01-22] MEDS: Propofol Inj 1,000,000 MCG in IV Premix 1 EACH IV SCH ×4 (02:03→22:09)
[2017-01-22] MEDS: Piperacillin-Tazo 3.375 Gm Inj 3.375 GM in Dextrose 5% Minibag Plus 50 ML IV SCH ×3 (02:03→18:20)
[2017-01-22 02:36] LABS: BASOPHILS % (AUTO) 0.1 % (0-3); EOSINOPHILS % (AUTO) 0.4 % (0-5); MONOCYTES % (AUTO) 5.8 % (4-12); Mean Corpuscular Hemoglobin 31.6 pg (27.0-35.0); Mean Corpuscular Volume 90.3 fL (81-100); NEUTROPHILS % (AUTO) 87.2 % (40-74); Platelet Count 104 bil/L (150-400)
[2017-01-22] MEDS ORDERED: Albuterol 2.5 mg/3 mL Inhalation Solution NEB ONE ×2 (02:39→07:00)
[2017-01-22 02:50] LABS: INR 0.91 ratio
[2017-01-22 03:10] LABS: Magnesium 2.4 mg/dL (1.6-2.6); Phosphorus 2.1 mg/dL (2.5-4.9)
[2017-01-22 03:17] LABS: TROPONIN T 0.127 ug/L (0.0-0.011)
[2017-01-22] MEDS: Chlorhexidine 0.12% 15 mL Oral Solution MT SCH ×5 (03:41→19:48)
--- NOTE | 2017-01-22 04:17 | ABG ---
DateTimeAnalyzed 04:11:00 -_ pH ____7.350 - 7.350 7.450 pCO2 ___35.6__ -mmHg 35.0 45.0 pO2 ___76.6__ -mmHg 69.0 116 HCO3- ___19.2__ -mmol/L 22.0 26.0 ABE ___-5.3__ -mmol/L -2.0 2.0 tHb ___11.1__ -g/dL 12.0 18.0 O2Hb ___93.0__ -% COHb ____0.9__ -% 0.0 1.5 MetHb ____1.0__ -% 0.4 1.5 sO2 ___94.8__ -% 25.0 FIO2 ___80.0__ -% PEEP ____8.0__ -cmH2O Set_RR ___18.0__ -b/min Vt __550.0__ -L Drawn By LT - Date/Time Notified____ 04:17:00 -_ Notified Whom Dr Beuning - B 757 -mmHg tO2 ___14.5__ -Vol% Franck test N/A -
--- NOTE | 2017-01-22 05:15 | NUR ---
Rewarming / sedation / resp Patient continues rewarming overnight. Requires LR boluses and Levophed increased to maintain MAP > 80 and CVP > 14. Attempted to wean sedation but patient does not tolerate Propofol lower than 30mcg/kg/min at this time due to coughing and alarming on vent. Versed on stand by. Fentanyl at 75mcgs/hr. BIS 40 mostly in the 40s. Patient frequently alarming high peak pressures on vent. RT notified who lavaged and suctioned multiple plugs from patient. ordered neb treatment x1 and to change patient to PRVC mode. Patient does not alarm after mode is changed. Addendum: 01/22/17 at 0610 by JAYDE LITTLE RN Patient 37.0 at 0610. RT in with patient suctioning and stimulating patient. Afterwards patient opens eyes on command, tracks, armed guard both hands, moves legs to command.
[2017-01-22] MEDS: LacriLube S.O.P. 3.5 Gm Ophthalmic Ointment BOTH_EYES SCH ×2 (07:27→19:48)
[2017-01-22] MEDS: Pantoprazole 4 mg/mL 10 mL Inj IVPUSH SCH ×2 (07:27→17:27)
[2017-01-22] MEDS ORDERED: Sodium Phosphate Inj 20 MEQ in Dextrose 5% 250 ML IV ONE (07:55)
[2017-01-22] MEDS ORDERED: Furosemide 10 mg/mL 2 mL Inj IVPUSH ONE ×3 (08:25→18:00)
[2017-01-22] MEDS: Albuterol-Ipratropium 3 mL Inhalation Solution NEB SCH ×4 (09:03→21:06)
--- NOTE | 2017-01-22 11:15 | PROG NOTE ---
[address] [address] PROGRESS NOTE PATIENT: ERNIE HARPER : 1955 MR#: [id number] ADMIT: 01/20/2017 JOB ID: [id number] DATE: 01/21/2017 PULMONARY CRITICAL CARE PROGRESS NOTE: PROBLEMS: 1. Out of hospital cardiac arrest. 2. Anoxic encephalopathy. 3. Cardiomyopathy. 4. History of coronary artery disease. SUBJECTIVE: None. Patient sedated. Just coming off the hypothermia protocol. OBJECTIVE: Temperature 37.2. Pulse 65-74, respiratory rate 18 with ventilator set at 18. Blood pressure 106/42. O2 sat on FiO2 of 0.8, PEEP of 8, is 99%-100%. I and O shows 8.7 L in, 2.8 L out. Cumulative I and O shows the patient to be 11.6 L positive. General appearance: Sedated. Minimally responsive. The patient reported to be following a few commands earlier this morning. Chest is clear with good breath sounds bilaterally. With a tidal volume of 550, peak of 31, plateau of 20, PEEP is set at 8, measured at 8. Waveforms suggest the patient desires increased tidal volume. Heart: Regular rhythm. Heart tones normal. Abdomen is soft. Some bowel tones present. Extremities: No pretibial edema. LABORATORY DATA: Shows a white count of 11,400 down from yesterday's value of 19,600 with moderate neutrophilia. Hemoglobin 11.7, down from 14.5 of 14 hours previously. Platelet count 104,000, down from 177,000. Sodium 140, potassium 4.5, chloride 111, CO2 is 18. BUN 13, creatinine 0.7. Calcium is 7.2 with an albumin of 2.4. Phosphorus mildly low at 2.1. Magnesium normal at 2.4. Total bilirubin 0.5. AST 41, ALT 37, alk phos 38. Troponin T mildly elevated at 0.127. PTT 50.6 seconds (heparin has been discontinued). Blood culture tentatively positive for Staphylococcus, probably coagulase negative. Sputum Gram stain shows only a few polys with mixed ernesto and only growing mixed ernesto. ASSESSMENT: 1. Anoxic encephalopathy. Apparently there has been some improvement in his mental status. Other examiners have reported some cognitive activity with the patient following simple commands. Currently sedated. 2. Hypertension. The patient's blood pressure is doing reasonably well. However, goal is a MAP of 80. Currently on 0.15 mcg/kg/minute of norepinephrine, which results in a blood pressure 112/49 with a MAP of 71, a little less than we would like. Hemodynamics pending but initial study showed a cardiac output of 9.7, stroke volume index of 46, a cardiac index of 4.2. Concern would be about whether there might be some degree of distributive shock. Therefore, will continue the current regimen of antibiotics following parameters for sepsis. 3. Hypoxemia. Significant (A-a) DO2 gradient. Will obtain a chest x-ray. In the meantime, I think we should start a bit of Lasix to see if we can diurese some of this fluid overload that has resulted over the past two days. 4. Hypophosphatemia, mild but I think deserves replacement. 5. Relative hypotension. That is not quite what we would like. Diastolic pressure is seemingly the problem. Concern is about distributive problem. We will look at the hemodynamics a bit more closely and see how a response to taking some fluid away and adding a little bit more nor epi and see what we can get in terms of pressure flow and peripheral vascular resistance and see if we can tighten him up a bit hemodynamically. PLAN: 1. Lasix IV push 20 mg. 2. Increase norepinephrine to 0.17-0.18 mcg/kg/minute and assess response hemodynamically using Cheetah monitoring. 3. Sodium phosphate 20 mEq IV infusion. 4. Nebulized DuoNeb (patient evidencing some small maybe dark brown to maybe slightly bloody clot). May be a result of aspiration. Seemed to respond well to bronchodilators. Will give bronchodilators lavage maybe two or three times and assess response on his oxygenation. 5. Repeat H and H now. Discussed the current findings and plan with the patient's . TIME: Time spent so far in critical care 55 minutes.
--- NOTE | 2017-01-22 12:54 | DRSVH ---
PROCEDURE: X-RAY CHEST ONE VIEW, PORTABLE ([id number]) INDICATIONS: dyspnea TECHNIQUE: One view of the chest was acquired. COMPARISON: [facility], CR, XR CHEST 1VW (PORTABLE), 01/21/2017, 9:19. FINDINGS: Surgical changes and devices: Stable position ETT, nasogastric tube and right PICC. Lungs and pleura: Mild edema present and there is been interval left lung base improved aeration Mediastinum: Mediastinal contours appear normal. Heart size is normal. Bones and chest wall: No suspicious bony lesions. Overlying soft tissues appear unremarkable. IMPRESSION: 1. Stable support lines and tubes. 2. Improved aeration involving the left lung base and there is persistent interstitial edema similar to prior exam. Dictated by: Everett Mendosa [facility] Interpreted: Emiliano Palencia MD on 01/22/2017 at 12:04 Approved by: Emiliano Palencia M.D. on 01/22/2017 at 12:52
--- NOTE | 2017-01-22 13:25 | NUR ---
spiritual care: patient request Visited with pt and family in his room. Oriented family to the presence of spiritual care. Offered a blessing. Spiritual care will continue to follow as needed.
--- NOTE | 2017-01-22 13:29 | PROG NOTE ---
[address] [address] PROGRESS NOTE PATIENT: ERNIE HARPER : 1955 MR#: [id number] ADMIT: 01/20/2017 JOB ID: [id number] DATE: 01/22/2017 SUBJECTIVE: The patient remains sedated on the ventilator. He has been stable hemodynamically with blood pressures ranging between 100 and 136 with a mean arterial pressure ranging in the 60s-80s. He is in sinus rhythm with a heart rate in the 60s and 70s now that he is no longer hypothermic. He is up approximately 8 kg from admission weight and his chest x-ray continues to show unilateral pulmonary edema on the right. An examination today shows diffusely edematous patient. He is warm and well perfused. Jugular veins are not able to be evaluated because of his thick neck. Cardiac tones are distant but his rate is regular and he does not have an obvious significant murmur. DATE: LABORATORY: Shows a hemoglobin of 11.2. Chemistries show normal renal function and electrolytes. IMPRESSION: The patient is a 61-year-old gentleman who apparently had an ischemic based ventricular fibrillation likely related to spasm in the distribution of his left circumflex artery with residual 50%-60% stenosis there but no other significant coronary disease. Overall left ventricular systolic function is near normal on his post-arrest study, and as I have reviewed it, I think that the ejection fraction probably is in the 45% range as opposed to 35%-40%. He remains on Levophed and an attempt to keep his mean arterial pressure up for improved cerebral circulation and his care is coordinated by Dr. Claudio who I spoke with. At this point, I have very little to add and will continue to follow briefly.
--- NOTE | 2017-01-22 13:52 | PCM.PNMED ---
Subjective Date of Service Jan 22, 2017 Subjective Overnight patient did well with some reported purposeful movements as patient is attempting to extubate himself. Patient's map in the 65-70 range on nor epi and 0.15 mcg/min. Patient is significantly overloaded by about 6-8 L and shows some pulmonary edema and some outward signs of third spacing. Patient remains on Zosyn. He started warming at 1430 yesterday. Exam Vital Signs Vital Sign - Last Date Time Temp Pulse Resp B/P Pulse Ox O2 Delivery O2 Flow Rate FiO2 01/22/17 12:29 91 129/61 100 80 01/22/17 07:38 37.2 18 Mechanical Ventilator Intake and Output 01/21/17 01/21/17 01/22/17 Cumulative From/Thru 15:00 23:00 07:00 01/20/17 10:09 - 01/22/17 05:55 Intake Total 5553 ml 5122 ml 87879 ml Output Total 1925 ml 800 ml 4925 ml Balance 3628 ml 4322 ml 29321 ml Intake Oral 0 ml IV Total 5553 ml 5122 ml 93524 ml Output Urine Total 1725 ml 600 ml 4225 ml Gastric Drainage Total 200 ml 200 ml 700 ml Exam General: Sedated male HEENT: E Tube in place, OG in place Lymph: No lymphadenopathy Cardio: Regular rate and rhythm Respiratory: CTA bilaterally, crackles Abdomen: Soft, bowel sounds are quiet, no distention Extremities: Edema in his lower extremities, sensation intact Psych: Sedated Neuro: Sedated Skin: No rash IVs and Medications Medications Reviewed: Medications were reviewed in detail Lab and Diagnostics Result Diagram: 01/22/17 1101 01/22/17 0215 X-Rays, CTs and MRIs Chest x-ray reveals mild pulmonary edema CT of the brain is unremarkable 12-lead ECG Sinus rhythm at [address] depressions in leads V3 and V4 and V5. The patient also has a flat T wave in. Left anterior Fascical block. Assessment & Plan 61-year-old male has history of CAD with stent who stopped taking his cardiac medications 1 year ago presents after V. fib arrest with approximate 5 minutes prior to CPR. Ventricular fibrillation Cardiac arrest with pulmonary edema; present on admission; ongoing -Resuscitated with defibrillation after more than 5 minutes of rest in the sitting position -Noncritical LCx disease; echo appears to show an EF of 45% -Cardiology consultation and appreciate the recommendations -Heparin drip discontinued -Hypothermia protocol with propofol, Versed, and fentanyl drips. -PICC line; arterial line -Continue on norepinephrine -Begin diuresing Circulatory shock, questionable sepsis; ongoing -Received numerous liters of fluid but requires norepinephrine -Questionable if this is a septic etiology, with brown ETT secretions and did not pulmonary source or aspiration -Pulse pressures quite large as well despite the norepinephrine -Continue Zosyn -GPC growing in only one bottle, and appears to be staph; questionable contaminant Acute blood loss anemia; present on admission; ongoing - present with a questionable upper GI bleed with positive Hemoccult -As patient was warming his hematocrit dropped by nearly 4 points which is quite large for dilution -Patient has received more than 5 L of fluid over the last 24 hours and may be related as multiple indices are decreased -Heparin stopped -Continue Protonix 40 mg twice daily IV Acute hypoxic respiratory failure secondary to cardiac arrest; present on admission; ongoing -Patient maintained on vent per pulmonary/CCU team Coronary artery disease, present on admission; ongoing -At this point is unclear if the patient had ischemia versus NSTEMI, and troponin reached 0.9 before trending down -Aspirin suppository daily -Held off on Plavix due to upper GI bleed and ongoing evaluation by cardiology Type II diabetes; present on admission; ongoing -Patient currently on insulin drip for hypothermia protocol Disposition: Reports of spontaneous neurologic activity are encouraging although I have not yet observed them. Full code Pain Evaluation: Adequate Pain Control GI Prophylaxis: Proton Pump Inhibitor VTE Mechanical Devices: Intermittant Pneumatic CD Resuscitation Status: CPR: Attempt Resuscitation Attending Statement The patient was seen and examined together with Dr. Gautam on January 22 and I agree with the history, exam findings, and plan as outlined in the note above. I did participate in all aspects of the services provided today, including documentation and the plan of care. The patient is now in the rewarming aspect of the protocol. He underwent hypothermia without complication. The patient has dropped his hematocrit. We will stop the heparin drip today. The patient will be rewarmed and we will attempt to diuresis to improve his oxygen status and decrease his FiO2. The patient has shown some signs of life with intentional movement. Hope to decrease his oxygen demand enough to extubate in the next 1-2 days. The family was updated and understands the plan. Dennis Keane DO Jan 22, 2017 13:52 Franck Wood MD Jan 22, 2017 15:00
[2017-01-22] MEDS: fentaNYL 2,500 mCg/250 mL 2,500 MCG in IV Premix 1 EACH IV SCH (14:27)
--- NOTE | 2017-01-22 16:18 | ABG ---
DateTimeAnalyzed 16:13:00 -_ pH ____7.430 - 7.350 7.450 pCO2 ___33.5__ -mmHg 35.0 45.0 pO2 109 -mmHg 69.0 116 HCO3- ___21.8__ -mmol/L 22.0 26.0 ABE ___-1.5__ -mmol/L -2.0 2.0 tHb ___10.8__ -g/dL 12.0 18.0 O2Hb ___95.9__ -% COHb ____1.2__ -% 0.0 1.5 MetHb ____0.9__ -% 0.4 1.5 sO2 ___98.0__ -% 25.0 FIO2 ___80.0__ -% PRVC 550 - PEEP ____8.0__ -cmH2O Set_RR ___18.0__ -b/min Vt __603.0__ -L Drawn By jmw - Date/Time Notified____ 16:18:00 -_ Spontaneous_RR ___18.0__ -b/min Notified By jmw - Notified Whom DR KENDREGEN - B 755 -mmHg tO2 ___14.7__ -Vol% OrderingPhysicianInitials bak - Franck test N/A -
[2017-01-22 16:24] LABS: Mean Corpuscular Hemoglobin 31.7 pg (27.0-35.0); Mean Corpuscular Volume 91.6 fL (81-100)
--- NOTE | 2017-01-22 17:57 | NUR ---
P: Resp, Cardiac, Neuro, Social I,E: Pt continues on the vent, CXR completed this am. ABG this afternoon showed improvement after 2 doses of lasix today and FIO2 was decreased to 70%. Pt has had infrequent suctioning of thick brown/rust/creamy sputum throughout the day. He has a strong spontaneous cough. Pt remains on levophed and MAP has remained in the 60's to 70's today, Dr. Keane is aware and is OK with that range for pt's MAP. Pt is on levophed at .18mcg. CI is currently 4.3 TPRI is 1009. Pt remains sedated on the vent. He does wake up easily with turning and at times conversation. He has been restless at times and when awake does move all extremities. Pupils size 3 and react but sluggishly. Family is at the bedside and are very supportive. Pt had very good response to Lasix today with approx 3l UOP. is aware.
[2017-01-22] MEDS: Midazolam Inj 100 MG in IV Premix 1 EACH IV PRN (22:08)
[2017-01-22] MEDS: Insulin Human REGular Inj 100 UNIT in 0.9% Sodium Chloride-Pha MIX 100 ML IV SCH (22:09)
[2017-01-23] VITALS (13 sets, daily range): BP systolic 110–137; BP diastolic 51–64; PULSE 64–107; RESP 15–18; O2SAT 95–100
[2017-01-23] MEDS: Chlorhexidine 0.12% 15 mL Oral Solution MT SCH ×7 (00:28→23:50)
[2017-01-23] MEDS: Albuterol-Ipratropium 3 mL Inhalation Solution NEB SCH ×6 (00:50→19:59)
[2017-01-23] MEDS: Piperacillin-Tazo 3.375 Gm Inj 3.375 GM in Dextrose 5% Minibag Plus 50 ML IV SCH ×3 (02:34→18:44)
[2017-01-23] MEDS: Norepineph 8,000 mCg/250 mL NS 8,000 MCG in IV Premix 1 EACH IV SCH ×2 (04:17→13:00)
[2017-01-23] MEDS: Propofol Inj 1,000,000 MCG in IV Premix 1 EACH IV SCH ×4 (04:18→20:51)
[2017-01-23 05:01] LABS: BASOPHILS % (AUTO) 0.1 % (0-3); EOSINOPHILS % (AUTO) 0.2 % (0-5); MONOCYTES % (AUTO) 5.1 % (4-12); Mean Corpuscular Hemoglobin 31.2 pg (27.0-35.0); Mean Corpuscular Volume 93.4 fL (81-100); NEUTROPHILS % (AUTO) 81.9 % (40-74); Platelet Count 89 bil/L (150-400)
[2017-01-23 05:59] LABS: Phosphorus 1.7 mg/dL (2.5-4.9)
--- NOTE | 2017-01-23 06:01 | ABG ---
DateTimeAnalyzed 05:53:04 -_ pH ____7.472 - 7.350 7.450 pCO2 ___34.3__ -mmHg 35.0 45.0 pO2 112 -mmHg 69.0 116 HCO3- ___25.1__ -mmol/L 22.0 26.0 ABE ____1.4__ -mmol/L -2.0 2.0 tHb ___10.0__ -g/dL 12.0 18.0 O2Hb ___98.0__ -% COHb ____2.0__ -% 0.0 1.5 MetHb ____0.0__ -% 0.4 1.5 sO2 ___99.9__ -% FIO2 ___21.0__ -% PRVC 550 - PEEP ____8.0__ -cmH2O Set_RR 18 -b/min Vt __603.0__ -L Drawn By TLA - Date/Time Notified____ 06:01:00 -_ Spontaneous_RR 18 -b/min Notified By TLA - Notified Whom Sav- RN - K+ ____3.3__ -mmol/L 3.5 5.0 tO2 ___14.0__ -Vol% Franck test N/A -
[2017-01-23 06:24] LABS: TROPONIN T 0.088 ug/L (0.0-0.011)
--- NOTE | 2017-01-23 06:41 | NUR ---
Mentation/Cardiac/Resp Patient remains intubated and on mechanical ventilator, Sedated on Propofol, Versed and Fentanyl, awakens with light touch or voice and follows simple commands, BP stable on 0.2 mcg/kg/min Levophed, HR 70's NSR, insulin gtt infusing and bloos sugars averaging 120-130's this shift, temp remains steady at 36.9-37.1C with [place], ABG drawn by RT, 775ml urine output, uneventful shift. Addendum: 01/23/17 at 0650 by STEVEN PAINTER RN Amended: Links added.
[2017-01-23] MEDS ORDERED: KCl 40 mEq/100 mL Premix (K 3 - 3.7 & Creat < 2) IV ONE (07:15)
[2017-01-23] MEDS ORDERED: Potassium Phos (mEq) Inj 40 MEQ in Dextrose 5% 500 ML IV ONE (07:40)
[2017-01-23] MEDS ORDERED: SODIUM PHOSPHATE IV ONE (08:05)
[2017-01-23] MEDS ORDERED: DEXTROSE 5% IV ONE (08:05)
[2017-01-23] MEDS ORDERED: POTASSIUM CHLORIDE IV ONE (08:05)
[2017-01-23] MEDS: Pantoprazole 4 mg/mL 10 mL Inj IVPUSH SCH ×2 (08:45→16:58)
[2017-01-23] MEDS: LacriLube S.O.P. 3.5 Gm Ophthalmic Ointment BOTH_EYES SCH ×2 (08:45→19:22)
--- NOTE | 2017-01-23 10:31 | NUR ---
Evaluation completed. Please go to "Notes" then click on "Assessments and Notes" (bottom left corner of screen). Then select appropriate discipline tab on top of screen.
--- NOTE | 2017-01-23 10:37 | NUR ---
NUTRITION FOLLOW-UP: Assess: 61 YO M admitted to CCU with STEMI. He has completed hypothermia protocol. Pt was having bloody ouput from OGT but this seems to have decreased. Pt has been NPO x3 days. Starting trophic TF today. TF to stay at trophic rate today to monitor tolerance. Pt is not on IVF so TF fluid flush rate increased to 150ml q 2 hrs. RN aware of TF rate/formula and fluid flush. PMHX: CAD, tobacco use, HTN, dyslipidemia, NSTEMI. DIET: NPOx3 LABS: Glu 151, Ca 7.7, phos 1.7, alb 2.4 MEDICATIONS: Reviewed. Pressor, Fentanyl, Insulin, Propofol currently at 13ml/hr providing 343kcal/day GI: No BM noted. SKIN: No issues noted. ANTHROPOMETRICS: Wt: 113.2 kg, BMI 32 kg/m2, admit wt: 106.8kg, IBW: 86.4 kg. ESTIMATED NEEDS: VENT/BMI Calories: 4960-3386 kcal/day (20-22 kcal/kg BW) Protein: 130-155 g/day (1.5-1.8 g/kg IBW) Fluids: 2705 ml/day (25ml/kg) NUTRITION DIAGNOSIS: 1) Inadequate oral intake related to decreased ability to consume sufficient energy as evidenced by NPO/Vent status. --PERSISTS INTERVENTION: 1) Recommend start TF of Glucerna 1.5. Recommend start at 10ml/hr and monitor tolerance. Fluid flush 150ml q 2 hrs to provide additional 1800ml as pt is not on IVF. TF+IVF provides 1966ml H20. 2) If trophic TF tolerated, recommend advance by 10ml q 6 hrs until reach goal rate of 60ml/hr to provide 1980kcal (2323kcal w/propofol) and 109g pro (100% kcal and 85% pro needs). Recommend adjust fluid flush based on TF rate/fluid status. 3) Adjust goal rate based on daily propofol rate 4) Once TF at goal recommend addition of prosource to better meet protein needs 5) Continue to monitor for BM. MONITOR/EVALUATE: NPO/Vent status, TF start/kaylie, BM, wt, POC, GI, labs, nutrition status. Follow per high nutrition risk guidelines.
--- NOTE | 2017-01-23 11:28 | PCM.PNMED ---
Subjective Date of Service Jan 23, 2017 Subjective Patient did well overnight. He does not appear to be overly fluid overloaded. He remains sedated although later sedation nursing reports intentional movements and following basic commands. Patient has a wide pulse pressure remains on norepinephrine this morning. Exam Vital Signs Vital Sign - Last Date Time Temp Pulse Resp B/P Pulse Ox O2 Delivery O2 Flow Rate FiO2 01/23/17 09:00 98 50 01/23/17 08:00 Ventilator 01/23/17 08:00 37.0 93 15 130/60 Intake and Output 01/22/17 01/22/17 01/23/17 Cumulative From/Thru 15:00 23:00 07:00 01/20/17 10:09 - 01/23/17 05:25 Intake Total 1178 ml 739 ml 35938 ml Output Total 3000 ml 775 ml 8700 ml Balance -1822 ml -36 ml 9787 ml Intake Oral 0 ml IV Total 1178 ml 739 ml 16866 ml Output Urine Total 2850 ml 775 ml 7850 ml Gastric Drainage Total 150 ml 0 ml 850 ml Exam General: Sedated male HEENT: ETTube in place, OG in place Lymph: No lymphadenopathy Cardio: Regular rate and rhythm Respiratory: CTA bilaterally, crackles on right and left seems clear Abdomen: Soft, bowel sounds are quiet, no distention Extremities: Edema in his lower extremities, sensation intact Psych: Sedated Neuro: Sedated Skin: No rash IVs and Medications Medications Reviewed: Medications were reviewed in detail Lab and Diagnostics Result Diagram: 01/23/17 0450 01/23/17 0450 X-Rays, CTs and MRIs Chest x-ray reveals mild pulmonary edema CT of the brain is unremarkable 12-lead ECG Sinus rhythm at [address] depressions in leads V3 and V4 and V5. The patient also has a flat T wave in. Left anterior Fascical block. Assessment & Plan 61-year-old male has history of CAD with stent who stopped taking his cardiac medications 1 year ago presents after V. fib arrest with approximate 5 minutes prior to CPR. Ventricular fibrillation Cardiac arrest with pulmonary edema; present on admission; ongoing -Resuscitated with defibrillation after more than 5 minutes of rest in the sitting position -Noncritical LCx disease; echo appears to show an EF of 45% -Cardiology consultation and appreciate the recommendations -Heparin drip discontinued -Hypothermia protocol completed; patient still in stable warm phase for another 24 hours -Sedation with propofol and fentanyl drips. -PICC line; arterial line -Continue on norepinephrine -Physical therapy Circulatory (possibly cardiogenic ) shock, questionable sepsis; ongoing -Received numerous liters of fluid but continues to require norepinephrine -Questionable if this is a septic etiology, with brown ETT secretions and did not pulmonary source or aspiration -Pulse pressures quite large as well despite the norepinephrine -White count normalized 01/23/17 -Continue Zosyn -GPC growing in only one bottle, and appears to be staph; questionable contaminant Acute blood loss anemia; present on admission; ongoing - present with a questionable upper GI bleed with positive Hemoccult -As patient was warming his hematocrit dropped by nearly 4 points which is quite large for dilution -Heparin stopped -Continue Protonix 40 mg twice daily IV -Start tube feeding -Recheck CBC at 1600 today -Transfuse at Hgb of 8 Acute hypoxic respiratory failure secondary to cardiac arrest; present on admission; ongoing -Patient maintained on vent and managed by pulmonary/CCU team -Patient has a mild respiratory alkalosis on ABG Coronary artery disease, present on admission; ongoing -At this point is unclear if the patient had ischemia versus NSTEMI, and troponin reached 0.9 before trending down -Aspirin suppository daily -No Plavix given due to upper GI bleed and cardiology assessment Type II diabetes; present on admission; ongoing -Patient currently on insulin drip for hypothermia protocol Disposition: Reports of spontaneous neurologic activity are encouraging although I have not yet observed them. We will try a sedation vacation tomorrow. Full code Pain Evaluation: Adequate Pain Control GI Prophylaxis: Proton Pump Inhibitor VTE Mechanical Devices: Intermittant Pneumatic CD Resuscitation Status: CPR: Attempt Resuscitation Attending Statement The patient was seen and examined together with on 01/23/2017 and I agree with the history, exam findings, and plan as outlined in the note above. I did participate in all aspects of the services provided today, including documentation and the plan of care. We will continue try to wean the patient off from his higher FiO2. The patient will have a spontaneous breathing trial today and again tomorrow morning. He continues to require norepinephrine support and 0.15. The patient is showing evidence of neurologic recovery with intentional movement. Dennis Keane DO Jan 23, 2017 11:28 Franck Wood MD Jan 23, 2017 13:58
--- NOTE | 2017-01-23 13:19 | ABG ---
DateTimeAnalyzed 13:13:00 -_ pH ____7.428 - 7.350 7.450 pCO2 ___37.5__ -mmHg 35.0 45.0 pO2 ___66.1__ -mmHg 69.0 116 HCO3- ___24.4__ -mmol/L 22.0 26.0 ABE ____0.6__ -mmol/L -2.0 2.0 tHb ____9.4__ -g/dL 12.0 18.0 O2Hb ___91.0__ -% COHb ____1.5__ -% 0.0 1.5 MetHb ____1.1__ -% 0.4 1.5 sO2 ___93.4__ -% 25.0 FIO2 ___40.0__ -% PEEP ____8.0__ -cmH2O Set_RR ___15.0__ -b/min Vt __550.0__ -L Drawn By as - Date/Time Notified____ 13:19:00 -_ Spontaneous_RR ___15.0__ -b/min Oxygen Device 1 VENTILATOR - Notified By ams - Notified Whom dr Kendregan - B 756 -mmHg tO2 ___12.1__ -Vol% Franck test N/A -
--- NOTE | 2017-01-23 13:28 | NUR ---
Social Work: Continued Discharge Planning/Multidisciplinary Rounds D: Pt discussed in multidisciplinary rounds. [facility] Pt is able to follow commands. Plan is to wean seadation and start tube feeds. Pt is improving. A: Pt who was previously living at home with his spouse. P: Case management continue to follow pt's clinical progress and will assist with discharge planning when pt's needs are known. JAIME Law
[2017-01-23] MEDS ORDERED: Albumin 25% 25 GM in IV Premix 1 EACH IV ONE (13:35)
--- NOTE | 2017-01-23 13:40 | DRSVH ---
PROCEDURE: X-RAY CHEST ONE VIEW, PORTABLE ([id number]) INDICATIONS: intubated TECHNIQUE: One view of the chest was acquired. COMPARISON: [facility], CR, XR CHEST 1VW (PORTABLE), 01/22/2017, 8:17. FINDINGS: Surgical changes and devices: Stable positioning of the ETT, nasogastric tube and right PICC.. Lungs and pleura: Diffuse bilateral interstitial opacities are present and there is been interval inc rease in airspace opacity within the left lung base and persistent density within the right lung base . Small left pleural effusion. No pneumothorax. Mediastinum: Mediastinal contours appear normal. Heart size is enlarged. Bones and chest wall: No suspicious bony lesions. Overlying soft tissues appear unremarkable. IMPRESSION: 1. Pulmonary edema and/or bibasilar pneumonia which has increased involving the left lung base and th ere is persistent small left pleural effusion. Dictated by: Everett Mendosa [facility] Interpreted: Conor Philip MD on 01/23/2017 at 10:16 Approved by: Conor Philip M.D. on 01/23/2017 at 13:38
--- NOTE | 2017-01-23 13:51 | PROG NOTE ---
[address] [address] PROGRESS NOTE PATIENT: ERNIE HARPER : 1955 MR#: [id number] ADMIT: 01/20/2017 JOB ID: [id number] DATE: 01/23/2017 PULMONARY CRITICAL CARE FOLLOW UP NOTE: PROBLEMS: 1. Out of hospital cardiac arrest. 2. Anoxic encephalopathy. 3. Cardiomyopathy. 4. History of coronary artery disease. SUBJECTIVE: None. The patient, however, was reported to interact with physical therapist earlier today and in fact followed some directions, albeit simple, nonetheless requiring cognition. OBJECTIVE: Temperature 37, pulse variable being 50-93, respiratory rate 15 with ventilator set at 15, blood pressure 117/59 on norepinephrine 0.15 mcg/kg/minute. O2 sat on FiO2 of 50%, PEEP of 8, is 95%. I and O shows 6.3 L in, 3.8 L out. General appearance: Sedated, currently resting comfortably. Chest: Good breath sounds bilaterally. Clear anteriorly. Heart: Regular rhythm. Heart tones seem normal. Abdomen: Soft. A few bowel tones noted. Extremities: No pretibial edema. Skin warm. Chest x-ray shows some blunting of the left costophrenic angle with silhouetting of the left hemidiaphragm. There is increased infiltrate in the right lower lung field less so in the right mid and upper lung desai when compared to previous films. LABORATORY DATA: Shows a white count of 9200 with a moderate neutrophilia. Hemoglobin 9.9, down 1 g in the last 12 hours. Platelet count slowly decreasing, currently at 89, down from 96 twelve hours previously. Lytes are normal though potassium low normal at 3.6. BUN 9, creatinine 0.7. Glucose mildly elevated at 151. Lactic acid normal at 2. Calcium 7.7 with an albumin of 2.4. Total bilirubin 0.6. Transaminases normal as is alkaline phosphatase. Blood cultures growing one out of four bottles positive for coagulase-negative Staph. ASSESSMENT: 1. Pulmonary infiltrates looking a little bit better on the right. Maybe a bit more on the left. Although he has diuresed fairly well, still remains positive. Will continue the diuresis to see if we can get him a bit dipper and drier. In regard to pulmonary function, that has improved. Oxygenation is better with a decreased (A-a)DO2 gradient. Will continue to decrease FiO2. Obtain gases as his pO2 and O2 saturation are a little bit discordant. 2. Multiple electrolyte abnormalities. Receiving supplementation. 3. Nutrition. Trophic feeding will start. Using Jevity 1.5. 4. Altered mental status. Seemingly waking up nicely. Interacted with a number of examiners today. Still a bit weak and I do not know that we are thinking of extubation at this point. Indeed we will need to check his arterial blood gases to see exactly where we are. Discussed the current status with the patient's . TIME SPENT: Critical care 30 minutes.
--- NOTE | 2017-01-23 13:55 | PROG NOTE ---
[address] [address] PROGRESS NOTE PATIENT: ERNIE HARPER : 1955 MR#: [id number] ADMIT: 01/20/2017 JOB ID: [id number] DATE: 01/23/2017 SUBJECTIVE: The patient remains ventilated and sedated. He remains on low-dose norepinephrine for hemodynamic support primarily to maintain mean arterial pressure close to 80 for cerebrovascular improvements. He has not had any significant dysrhythmias. Apparently physical therapy was working with him earlier and he was able to follow some commands. There was even attempt to get him up to sit by the side of the bed which is positive, although when I see him at 1:30 this afternoon, he is unresponsive and sedated. His examination again it is impossible to judge clerk his central venous pressure. His lungs appear ventilated and I do not hear obvious rhonchi or wheezing. He has a prominent dependent edema. His extremities are warm and well perfused. IMPRESSION: This gentleman is hemodynamically stable. He has not diuresed significantly. I have spoken to Dr. Claudio regarding my concerns of continued vasopressor support given the likelihood that his cardiac event was precipitated by spasm involving his circumflex coronary artery, which contributed to a non-ST elevation myocardial infarction a year ago. Current angiogram also demonstrated significant degree of spasm which I think is the primary component that triggered his ventricular fibrillation arrest. In any event, I think once he is able, he should be on anti-platelet therapy perhaps with both aspirin and clopidogrel in addition to statin therapy such as 40 or 80 mg of atorvastatin and finally a antispasm medication, perhaps a nondihydropyridine calcium channel coreen like amlodipine or long-acting nitroglycerin. We will continue to follow the patient during his hospital stay and I am happy to make further suggestions as needed.
[2017-01-23 16:30] LABS: BASOPHILS % (AUTO) 0.1 % (0-3); EOSINOPHILS % (AUTO) 0.5 % (0-5)
[2017-01-23 16:35] LABS: Mean Corpuscular Hemoglobin 31.3 pg (27.0-35.0); Mean Corpuscular Volume 94.1 fL (81-100); NEUTROPHILS % (AUTO) 80.7 % (40-74); Platelet Count 91 bil/L (150-400)
[2017-01-23] MEDS: fentaNYL 2,500 mCg/250 mL 2,500 MCG in IV Premix 1 EACH IV SCH (17:04)
--- NOTE | 2017-01-23 19:18 | NUR ---
Sedation/Hemodynamics/Resp/Activity MD ordered to wean of Versed. This was done which left Propofol at 25 mcgs and fentanyl at 75mcg/hr. Patient does open eyes and follow commands on this. Comfortable. Given small boluses for turning patient. Md wanted Levophed weaned down. Was able to wean to 0.13 only in keeping map at 80 per cooling/warming protocol. BP 122/58 at 1600 vitals. BP does go up with stimulation. Good UOP, 1000 mls this shift. Vent 50%, 8, 550, 15. Started TF at a trickle. Turning patient 2 hours and is on continuous rotation this shift. Sent Blood to lab at 1700 for cbc and K and phos levels. Lab with confusion on this so, noc shift RN is following up. Continuing with poc.
[2017-01-23 19:35] LABS: Phosphorus 2.6 mg/dL (2.5-4.9)
[2017-01-24] VITALS (13 sets, daily range): BP systolic 102–135; BP diastolic 50–81; PULSE 76–110; RESP 12–17; O2SAT 79–98
[2017-01-24] MEDS: Albuterol-Ipratropium 3 mL Inhalation Solution NEB SCH ×7 (00:08→23:55)
[2017-01-24] MEDS: Piperacillin-Tazo 3.375 Gm Inj 3.375 GM in Dextrose 5% Minibag Plus 50 ML IV SCH ×3 (02:00→18:20)
[2017-01-24] MEDS: Propofol Inj 1,000,000 MCG in IV Premix 1 EACH IV SCH ×2 (02:01→06:11)
[2017-01-24] MEDS: Chlorhexidine 0.12% 15 mL Oral Solution MT SCH ×5 (04:28→21:08)
--- NOTE | 2017-01-24 05:49 | NUR ---
Mentation/Cardiac/Resp/GI Patient remains on ventilator and intubated, follows commands when woken up, patient became anxious this shift, Temp 37.4 and HR 120's increased Fentanyl and Propofol and patient resting calm at this time, O2 needs increased this shift and moderate amounts of brown/rankin thick secretions from ET tube, FIO2 increased from 50% to 60% by RT, Levophed titrated off and BP stable, tolerating tube feedings at 10ml/hr and 150ml flush Q2H, BS 106 on 1 unit/hr insulin, insulin gtt put on standby and BS 1 hour later was 121 and 3 hours after gtt turned off blood sugar was 105. Insulin gtt remains on standby, no distress noted. Addendum: 01/24/17 at 0555 by STEVEN PAINTER RN Amended: Links added.
--- NOTE | 2017-01-24 06:19 | ABG ---
DateTimeAnalyzed 06:11:00 -_ pH ____7.397 - 7.350 7.450 pCO2 ___40.7__ -mmHg 35.0 45.0 pO2 ___71.0__ -mmHg 69.0 116 HCO3- ___25.0__ -mmol/L 22.0 26.0 ABE ____0.2__ -mmol/L -2.0 2.0 tHb ____9.2__ -g/dL 12.0 18.0 O2Hb ___93.2__ -% COHb ____2.7__ -% 0.0 1.5 MetHb ____0.1__ -% 0.4 1.5 sO2 ___95.9__ -% FIO2 ___21.0__ -% PEEP ____8.0__ -cmH2O Set_RR 15 -b/min Vt __550.0__ -L Drawn By MD - Date/Time Notified____ 06:18:00 -_ Spontaneous_RR 15 -b/min Oxygen Device 1 VENTILATOR - Notified By MD - Notified Whom RN J.PAINTER - K+ ____3.9__ -mmol/L 3.5 5.0 tO2 ___12.2__ -Vol% Franck test N/A -
[2017-01-24 06:57] LABS: Magnesium 2.2 mg/dL (1.6-2.6); Phosphorus 3.3 mg/dL (2.5-4.9)
[2017-01-24] MEDS ORDERED: Dexmedetomidine Inj 400 MCG in 0.9% Sodium Chloride 100 ML IV SCH (08:17)
[2017-01-24] MEDS ORDERED: Furosemide 10 mg/mL 2 mL Inj IVPUSH SCH (08:30)
[2017-01-24] MEDS: Pantoprazole 4 mg/mL 10 mL Inj IVPUSH SCH ×2 (09:21→16:25)
[2017-01-24] MEDS: LacriLube S.O.P. 3.5 Gm Ophthalmic Ointment BOTH_EYES SCH ×2 (09:22→20:30)
--- NOTE | 2017-01-24 10:29 | NUR ---
NUTRITION FOLLOW-UP: Assess: 61 YO M admitted to CCU with STEMI. He has completed hypothermia protocol. Pt was having bloody ouput from OGT but this seems to have decreased. Trophic TF was tolerated well. TF to begin advancing today. Orders placed in chart. RN aware. Plan for sedation vacation today. PMHX: CAD, tobacco use, HTN, dyslipidemia, NSTEMI. DIET: NPO LABS: [employer] .54, Glu 114, Ca 8.1, T.bili 1.3, Alb 2.8 MEDICATIONS: Reviewed. Pressor, Fentanyl, Insulin, Propofol off GI: No BM noted. SKIN: No issues noted. NUTRITION SUPPORT: Glucerna 1.5 @ 10ml/hr. ANTHROPOMETRICS: Wt: 113.8 kg, BMI 32.2 kg/m2, admit wt: 106.8kg, IBW: 86.4 kg. ESTIMATED NEEDS: VENT/BMI Calories: 9743-2739 kcal/day (20-22 kcal/kg BW) Protein: 130-155 g/day (1.5-1.8 g/kg IBW) Fluids: 2705 ml/day (25ml/kg) NUTRITION DIAGNOSIS: 1) Inadequate oral intake related to decreased ability to consume sufficient energy as evidenced by NPO/Vent status. --PERSISTS INTERVENTION: 1) Recommend advance TF of Glucerna 1.5 by 10ml q 6 hrs until reach goal rate of 72ml/hr to provide 2376kcal and 130g pro (100% estimated needs). Fluid flush of 105ml q 2 hrs to provide additional 1260ml H20. TF + fluid flush provides 2460ml H20. 2) Adjust goal rate if propofol re-started 3) Continue to monitor for BM. MONITOR/EVALUATE: NPO/Vent status, TF kaylie, BM, wt, POC, GI, labs, nutrition status. Follow per high nutrition risk guidelines.
--- NOTE | 2017-01-24 10:55 | ABG ---
DateTimeAnalyzed 10:45:40 -_ pH ____7.441 - 7.350 7.450 pCO2 ___39.3__ -mmHg 35.0 45.0 pO2 ___76.9__ -mmHg 69.0 116 HCO3- ___26.7__ -mmol/L 22.0 26.0 ABE ____2.4__ -mmol/L -2.0 2.0 tHb ____9.2__ -g/dL 12.0 18.0 O2Hb ___94.8__ -% COHb ____2.7__ -% 0.0 1.5 MetHb ____0.0__ -% 0.4 1.5 sO2 ___97.4__ -% FIO2 ___60.0__ -% Pressure_Support ____8.0__ -cmH2O PEEP ____8.0__ -cmH2O Drawn By as - Date/Time Notified____ 10:54:00 -_ Spontaneous_RR 15 -b/min Oxygen Device 1 VENTILATOR - Notified By ams - Notified Whom dr kendregan - K+ ____4.0__ -mmol/L 3.5 5.0 tO2 ___12.3__ -Vol% Franck test N/A -
[2017-01-24] MEDS ORDERED: Norepinephrine 8,000 mCg/250 mL D5W Premix IV PRN (11:40)
[2017-01-24] MEDS ORDERED: 0.9% Sodium Chloride 500 ML IV ONE (11:50)
[2017-01-24] MEDS ORDERED: Albumin 25% 25 GM in IV Premix 1 EACH IV ONE (11:50)
[2017-01-24 12:10] LABS: TROPONIN T 0.04 ug/L (0.0-0.011)
[2017-01-24] MEDS: fentaNYL 2,500 mCg/250 mL 2,500 MCG in IV Premix 1 EACH IV SCH (13:40)
--- NOTE | 2017-01-24 14:41 | PROG NOTE ---
[address] [address] PROGRESS NOTE PATIENT: ERNIE HARPER : 1955 MR#: [id number] ADMIT: 01/20/2017 JOB ID: [id number] DATE: 01/24/2017 PROBLEM: 1. Possible cardiac arrest. 2. Anoxic encephalopathy. 3. Cardiomyopathy. 4. History of coronary artery disease. SUBJECTIVE: None. OBJECTIVE: Temperature 37.3. Pulse 88-110, respiratory rate 15 on a ventilator set at 15, blood pressure 107/81, O2 sat on FiO2 of 60% and PEEP of 6 is 97%. The patient sedated on the ventilator. Chest with fair breath sounds bilaterally. There are some bilateral crackles, maybe more so on the right than the left. No use of accessory muscles. Heart: Regular rhythm. Heart tones normal. Abdomen is soft. Bowel tones present. Extremities: No pretibial edema. There appears to be some edema of the upper extremities. Sodium 139, potassium 4.2, chloride 103, CO2 is 22, BUN 10, creatinine 0.6. Calcium 8.3, phosphorus 2. The patient was given 20 mg of Lasix IV push. Had a good diuresis of a bit over 2 L. Called back to the room because of tachycardia. Had a brief run of SVT with a ventricular rate of 130-140. The pressure support trial which had been in progress and which he was tolerating well without evidence of tachypnea or hypoxemia was canceled. The patient was returned to the ventilator. Stat gases just prior to return to the ventilator showed a pO2 of 76, pCO2 of 39, pH 7.44. A stat troponin was 0.04. The tachyarrhythmia was only present briefly. Subsequently called back later because of hypertension. After the hemodynamics were evaluated, the patient was given 500 mL of normal saline IV wide open along with albuterol IV 50 g. Blood pressure improved. Currently running about 107/mid 60s. ASSESSMENT: 1. Anoxic encephalopathy. The patient's encephalopathy seems to be improving. Did seem to look at questioners, though did not make any cognitive contact with me. Merely appeared to stare off into the distance. The plan was to decrease the sedatives but with the problems encountered today we will go a bit slower. 2. Hypertension. Possibly related to rapid diuresis. Some question about the reliability of the measurements. In any case, gave him some fluid back. Will let that stabilize. Monitor his progress and maybe tomorrow take off half of what we took off today. Seems to be tolerating pressure support trial fairly well. Major problem was with a relatively high (A-a) DO2 gradient. That was the idea behind diuresing him to get rid of some of the pulmonary interstitial fluid. Will see how he does and maybe return to a shorter pressure support trial this afternoon. Situation discussed with the patient's family. They were kept informed throughout the morning events. Were aware of the problems associated with the low blood pressure likely due to the diuresis, as well as the implications of same. PLAN: 1. Hold pressure support trials today. 2. Replete some of the missing IV fluid with saline, as well as with albumin, and then re-evaluate the situation and renew pressure support trials. TIME SPENT IN CRITICAL CARE: 90 minutes.
--- NOTE | 2017-01-24 15:31 | NUR ---
Art Line Arterial line discontinued - catheter intact.
[2017-01-24] MEDS: Dexmedetomidine 400 mCg/100 mL 400 MCG in IV Premix 1 EACH IV SCH (16:23)
--- NOTE | 2017-01-24 17:22 | PCM.PNMED ---
Subjective Date of Service Jan 24, 2017 Subjective Patient did fairly well overnight with reported purposeful movements and turning eyes to questionnaires. This morning around 11 AM, while on support trial, the patient became tachypneic. He was also undergoing diuresis that time have been doing fairly well with that. ICU team return the patient to ventilator settings and administered fluid and albumin to the patient. Will attempt sedation vacation maybe tomorrow Exam Vital Signs Vital Sign - Last Date Time Temp Pulse Resp B/P Pulse Ox O2 Delivery O2 Flow Rate FiO2 01/24/17 16:00 94 135/61 94 60 01/24/17 12:00 37.3 15 Mechanical Ventilator Intake and Output 01/23/17 01/23/17 01/24/17 Cumulative From/Thru 15:00 23:00 07:00 01/20/17 10:09 - 01/24/17 04:35 Intake Total 1739 ml 1703 ml 12192 ml Output Total 1000 ml 750 ml 68006 ml Balance 739 ml 953 ml 17814 ml Intake Oral 0 ml IV Total 1391 ml 502 ml 06262 ml Tube Feeding 48 ml 151 ml 199 ml Tube Irrigant 300 ml 1050 ml 1350 ml Output Urine Total 1000 ml 750 ml 9600 ml Gastric Drainage Total 850 ml Exam General: Sedated but more responsive HEENT: ETTube in place, OG in place Lymph: No lymphadenopathy Cardio: Regular rate and rhythm Respiratory: CTA bilaterally, crackles on right and left seems clear Abdomen: Soft, bowel sounds are quiet, no distention Extremities: Edema in his lower extremities, sensation intact Psych: Sedated Neuro: Sedated Skin: No rash IVs and Medications Medications Reviewed: Medications were reviewed in detail Lab and Diagnostics Result Diagram: 01/23/17 1625 01/24/17 1121 X-Rays, CTs and MRIs Chest x-ray reveals mild pulmonary edema CT of the brain is unremarkable 12-lead ECG Sinus rhythm at [address] depressions in leads V3 and V4 and V5. The patient also has a flat T wave in. Left anterior Fascical block. Assessment & Plan 61-year-old male has history of CAD with stent who stopped taking his cardiac medications 1 year ago presents after V. fib arrest with approximate 5 minutes prior to CPR. Acute hypoxic respiratory failure secondary to cardiac arrest; present on admission; ongoing -Patient maintained on vent and managed by pulmonary/CCU team -Pressure support trial today when well until the patient became hypotensive and demonstrated short episodes of SVT -We will attempt pressure support trial tomorrow Ventricular fibrillation Cardiac arrest with pulmonary edema; present on admission; ongoing -Resuscitated with defibrillation after more than 5 minutes of rest in the sitting position -Noncritical LCx disease; echo appears to show an EF of 45% -Cardiology consultation and appreciate the recommendations -Hypothermia protocol completed -Sedation lightened with fentanyl at 50, propofol off, and Precedex for -PICC line; arterial line -Stopped norepinephrine -Physical therapy Circulatory (possibly cardiogenic or sepsis with aspiration pneumonia ) shock, questionable sepsis; ongoing -Received numerous liters of fluid but continues to require norepinephrine -Questionable if this is a septic etiology, with brown ETT secretions and did not pulmonary source or aspiration -Pulse pressures quite large as well despite the norepinephrine -White count normalized 01/23/17 -Continue Zosyn for now, given probable aspiration Acute blood loss anemia; present on admission; ongoing - present with a questionable upper GI bleed with positive Hemoccult -As patient was warming his hematocrit dropped by nearly 4 points which is quite large for dilution -Heparin stopped -Continue Protonix 40 mg twice daily IV -Advancing tube feeds -Transfuse at Hgb of 8 Coronary artery disease, present on admission; ongoing -At this point is unclear if the patient had ischemia versus NSTEMI, and troponin reached 0.9 before trending down -Aspirin suppository daily -No Plavix given due to upper GI bleed and cardiology assessment Type II diabetes; present on admission; ongoing -Patient currently on regular insulin GGT Disposition: Patient appears to be awakening and turning his eyes towards questioner. Nurse reports that he is much more awake and cooperative. Spontaneous breathing trial tomorrow and with drop sedation. Patient also needs diuresis gently as today's SVT episodes and hypotension may have been caused with his diuresis. Currently discussing a Lasix drip at 1-2 mg an hour. Full code Pain Evaluation: Adequate Pain Control GI Prophylaxis: Proton Pump Inhibitor VTE Mechanical Devices: Intermittant Pneumatic CD Resuscitation Status: CPR: Attempt Resuscitation Time spent 35 minutes Attending Statement I examined the patient on rounds today, and counseled his at bedside. Signs of recovery from hypoxic encephalopathy are emerging. Pulmonary status requires further monitoring with regard to extubation. I agree with the assessment and plan as stated above. Dennis Keane DO Jan 24, 2017 17:22 Ian Dodd MD Jan 24, 2017 18:19
--- NOTE | 2017-01-24 18:36 | NUR ---
Sedation/Hemodynamics/Vent and PST/Activity Patient off Propofol and switched to precedex. Precedex is a 0.4 mcgs. Fentanyl down to 50 mcgs. Patient wakes, follow commands, and is appropriate. Diuresed with 20 mg Lasix this morning and afterwards became slightly hypotensive. MD aware and ordered 500 ml NS bolus. This was helpful and now BP is wnl, 114/54. Art line dcd. UOP 1800 mls. HR, SR mostly 80-90s, but during a PST, patient had an episode of "extreme tachy, 140s, not sustained. Md ordered to stop PST, stat labs, ECG, and ABGs. This was all done. Lasix was dcd for today. Vent is at 60%/8/550/15. Sats have been 94-97%. Lungs are clear. Patient is coughing up more thick secretions requiring frequent suctioning and occ lavage by RT. Turning q 2 hours.
--- NOTE | 2017-01-24 20:34 | NUR ---
Patient had an audible leak and was unable to maintain. When i observed the tube placement it was at 20cminstead of 27cm at the teeth. Tube was reinserted and a cxr was ordered to verify placement
--- NOTE | 2017-01-24 21:10 | DRSVH ---
PROCEDURE: X-RAY CHEST ONE VIEW, PORTABLE ([id number]) INDICATIONS: TUBE PLACEMENT TECHNIQUE: One view of the chest was acquired. COMPARISON: None. FINDINGS: Surgical changes and devices: An endotracheal tube extends to normal position at the inferior margin of the medial clavicular heads. A nasogastric tube has been placed, with its tip extending below th e imaging margin and then appearing to reappear at the gastric cardia indicating that it is coiled in that area. What appears to be partially visualized PICC line from right sided approach extends into the distal SVC. No definite additional lines or tubes are seen.. Lungs and pleura: No pleural effusions or pneumothorax. Lungs are abnormal, with a worsening patter n of right mid and lower lung pneumonia, and slight alveolar infiltration at the left mid and lower l jn also. Mediastinum: Mediastinal contours appear normal. Heart size is normal. Bones and chest wall: No suspicious bony lesions. Overlying soft tissues appear unremarkable. IMPRESSION: Lines and tubes as discussed, worsening pneumonia right mid and lower lung and likely al so slight worsening pneumonia left mid and lower lung. Dictated by: Conor Philip M.D. on 01/24/2017 at 21:07 Approved by: Conor Philip M.D. on 01/24/2017 at 21:09
[2017-01-25] VITALS (12 sets, daily range): BP systolic 110–161; BP diastolic 45–65; PULSE 68–88; RESP 12–17; O2SAT 90–98
[2017-01-25] MEDS: Dexmedetomidine 400 mCg/100 mL 400 MCG in IV Premix 1 EACH IV SCH ×3 (00:22→17:44)
[2017-01-25] MEDS: Chlorhexidine 0.12% 15 mL Oral Solution MT SCH ×6 (00:22→20:30)
[2017-01-25] MEDS: fentaNYL 2,500 mCg/250 mL 2,500 MCG in IV Premix 1 EACH IV SCH (00:22)
[2017-01-25] MEDS: Piperacillin-Tazo 3.375 Gm Inj 3.375 GM in Dextrose 5% Minibag Plus 50 ML IV SCH ×3 (03:11→17:42)
--- NOTE | 2017-01-25 04:43 | ABG ---
DateTimeAnalyzed 04:35:04 -_ pH ____7.433 - 7.350 7.450 pCO2 ___38.1__ -mmHg 35.0 45.0 pO2 ___75.3__ -mmHg 69.0 116 HCO3- ___25.5__ -mmol/L 22.0 26.0 ABE ____1.1__ -mmol/L -2.0 2.0 tHb ____8.4__ -g/dL 12.0 18.0 O2Hb ___94.4__ -% COHb ____2.6__ -% 0.0 1.5 MetHb ____0.0__ -% 0.4 1.5 sO2 ___96.9__ -% FIO2 ___60.0__ -% PEEP ____8.0__ -cmH2O Set_RR 14 -b/min Vt __700.0__ -L Drawn By MK - Date/Time Notified____ 04:42:00 -_ Spontaneous_RR 12 -b/min Oxygen Device 1 VENTILATOR - Notified By MK - K+ ____3.8__ -mmol/L 3.5 5.0 tO2 ___11.3__ -Vol% Franck test _Positive -
[2017-01-25] MEDS: Albuterol-Ipratropium 3 mL Inhalation Solution NEB SCH ×5 (04:48→20:31)
--- NOTE | 2017-01-25 05:41 | NUR ---
Cardiac/Resp/GI Patient remains on vent and intubated, ET tube moved at change of shift, see RT note, no cuff leak since tube placement at 27cm, CXR done to verify tube placement, HR 70-90's NSR with PAC's, BP 1304/59 and has been off pressors for over 24 hours, minimal secretions from ET tube, sats 97%, ABG done, PO2 75.3 on 60% FIO2, tolerating TF well at 40ml/hr this AM, residual 80ml at last check, awake at times and follows commands, nods yes and no to simple questions, at bedside, no distress noted, updated on POC, will continue to monitor. Addendum: 01/25/17 at 0546 by STEVEN PAINTER RN Amended: Links added.
[2017-01-25 06:34] LABS: BASOPHILS % (AUTO) 0.2 % (0-3); EOSINOPHILS % (AUTO) 0.9 % (0-5); MONOCYTES % (AUTO) 8.8 % (4-12); Mean Corpuscular Hemoglobin 31.4 pg (27.0-35.0); Mean Corpuscular Volume 97.7 fL (81-100); NEUTROPHILS % (AUTO) 78.5 % (40-74); Platelet Count 96 bil/L (150-400)
[2017-01-25 06:55] LABS: TROPONIN T 0.01 ug/L (0.0-0.011)
[2017-01-25 07:07] LABS: Magnesium 2.1 mg/dL (1.6-2.6); Phosphorus 2.6 mg/dL (2.5-4.9)
[2017-01-25] MEDS: Pantoprazole 4 mg/mL 10 mL Inj IVPUSH SCH ×2 (08:07→17:11)
[2017-01-25] MEDS: LacriLube S.O.P. 3.5 Gm Ophthalmic Ointment BOTH_EYES SCH ×2 (08:07→20:30)
--- NOTE | 2017-01-25 10:46 | ABG ---
DateTimeAnalyzed 10:37:15 -_ pH ____7.431 - 7.350 7.450 pCO2 ___39.6__ -mmHg 35.0 45.0 pO2 ___58.6__ -mmHg 69.0 116 HCO3- ___26.3__ -mmol/L 22.0 26.0 ABE ____1.9__ -mmol/L -2.0 2.0 tHb ____8.4__ -g/dL 12.0 18.0 O2Hb ___89.2__ -% COHb ____2.5__ -% 0.0 1.5 MetHb ____0.0__ -% 0.4 1.5 sO2 ___91.4__ -% FIO2 ___45.0__ -% Pressure_Support ____5.0__ -cmH2O PEEP ____5.0__ -cmH2O Drawn By as - Date/Time Notified____ 10:45:00 -_ Spontaneous_RR 16 -b/min Oxygen Device 1 VENTILATOR - Notified By ams - Notified Whom Hegenbarth, Jason - K+ ____3.8__ -mmol/L 3.5 5.0 tO2 ___10.6__ -Vol% Franck test _Positive -
[2017-01-25] MEDS: Insulin Human REGular 300 Unit/3 mL Inj SUBQ SCH ×2 (14:22→20:55)
--- NOTE | 2017-01-25 14:25 | DRSVH ---
PROCEDURE: X-RAY CHEST ONE VIEW, PORTABLE ([id number]) INDICATIONS: intubated TECHNIQUE: One view of the chest was acquired. COMPARISON: [facility], CR, XR CHEST 1VW (PORTABLE), 01/24/2017, 20:27. FINDINGS: Surgical changes and devices: Stable position ETT, NG tube and right PICC. Lungs and pleura: Diffuse, widespread bilateral pulmonary interstitial and air space opacities are p resent similar to prior examination. Small left pleural effusion redemonstrated. No pneumothorax. Mediastinum: Mediastinal contours appear normal. Heart size is enlarged. Bones and chest wall: No suspicious bony lesions. Overlying soft tissues appear unremarkable. IMPRESSION: 1. Stable support lines and tubes. 2. Pulmonary edema and/or bibasilar pneumonia similar to prior examination. Dictated by: Everett Mendosa [facility] Interpreted: Vikki Salinas MD on 01/25/2017 at 9:42 Approved by: Vikki Salinas M.D. on 01/25/2017 at 14:24
--- NOTE | 2017-01-25 16:16 | PCM.PNMED ---
Subjective Date of Service Jan 25, 2017 Subjective Patient is more awake this morning and on spontaneous breathing trial and doing well. He is able to communicate with blinking. His ABGs shows hypoxia on 0.45 FiO2. This is still concerning as the patient was requiring high concentrations of oxygen to meet basic saturation needs. Precedex is currently on sedation was withheld today. Exam Vital Signs Vital Sign - Last Date Time Temp Pulse Resp B/P Pulse Ox O2 Delivery O2 Flow Rate FiO2 01/25/17 12:30 37.4 71 13 126/64 96 Mechanical Ventilator 60 Intake and Output 01/24/17 01/24/17 01/25/17 Cumulative From/Thru 15:00 23:00 07:00 01/20/17 10:09 - 01/25/17 04:31 Intake Total 1612 ml 1790 ml 33276 ml Output Total 1800 ml 850 ml 18665 ml Balance -188 ml 940 ml 23720 ml Intake Oral 0 ml IV Total 887 ml 307 ml 66487 ml Tube Feeding 170 ml 501 ml 870 ml Tube Irrigant 555 ml 982 ml 2887 ml Output Urine Total 1800 ml 850 ml 45491 ml Gastric Drainage Total 0 ml 850 ml Exam General: Responding purposeful movement HEENT: ETTube in place, OG in place Lymph: No lymphadenopathy Cardio: Regular rate and rhythm Respiratory: CTA bilaterally, crackles on right and left seems clear Abdomen: Soft, bowel sounds are quiet, no distention Extremities: Edema in his lower extremities, sensation intact Psych: Sedated Neuro: Sedated Skin: No rash IVs and Medications Medications Reviewed: Medications were reviewed in detail Lab and Diagnostics Result Diagram: 01/25/17 0610 01/25/17 0610 X-Rays, CTs and MRIs Chest x-ray reveals mild pulmonary edema CT of the brain is unremarkable 12-lead ECG Sinus rhythm at [address] depressions in leads V3 and V4 and V5. The patient also has a flat T wave in. Left anterior Fascical block. Assessment & Plan 61-year-old male has history of CAD with stent who stopped taking his cardiac medications 1 year ago presents after V. fib arrest with approximate 5 minutes prior to CPR. Acute hypoxic respiratory failure secondary to cardiac arrest; present on admission; ongoing -Patient maintained on vent and managed by pulmonary/CCU team -Pressure support trial today when well until the patient became hypotensive and demonstrated short episodes of SVT -Patient did well pressure support today but remains hypoxic on increased levels of FiO2 Ventricular fibrillation Cardiac arrest with pulmonary edema; present on admission; ongoing -Resuscitated with defibrillation after more than 5 minutes of rest in the sitting position -Noncritical LCx disease; echo appears to show an EF of 45% -Cardiology consultation and appreciate the recommendations -Hypothermia protocol completed -Sedation lightened with fentanyl at 50, propofol off, and Precedex for agitation -PICC line; arterial line -Stopped norepinephrine -Physical therapy Circulatory (possibly cardiogenic or sepsis with aspiration pneumonia ) shock, questionable sepsis; ongoing -Received numerous liters of fluid but continues to require norepinephrine -Questionable if this is a septic etiology, with brown ETT secretions and did not pulmonary source or aspiration -Pulse pressures quite large as well despite the norepinephrine -White count normalized 01/23/17 -Continue Zosyn for now, given aspiration -Diuresis with Lasix drip today Acute blood loss anemia; present on admission; ongoing - present with a questionable upper GI bleed with positive Hemoccult -As patient was warming his hematocrit dropped by nearly 4 points which is quite large for dilution -Heparin stopped -Continue Protonix 40 mg twice daily IV -Advancing tube feeds -Transfuse at Hgb of 8 -We will likely need transfusion tonight; H/H scheduled for 1800 Coronary artery disease, present on admission; ongoing -At this point is unclear if the patient had ischemia versus NSTEMI, and troponin reached 0.9 before trending down -Aspirin suppository daily -No Plavix given due to upper GI bleed and cardiology assessment Type II diabetes; present on admission; ongoing -Discontinued GGT -A1c of 5.8 on 01/20 -Subcutaneous regular insulin Disposition: Patient showing good neurological recovery so far. He needs to be diuresed and hopefully this will improve his oxygenation. He did well with his spontaneous breathing trial today for likely require 1-2 more days on the vent. Full code GI Prophylaxis: Proton Pump Inhibitor VTE Mechanical Devices: Intermittant Pneumatic CD Resuscitation Status: CPR: Attempt Resuscitation Time spent 35 minutes Attending Statement I interviewed and examined the patient on rounds today. I agree with the assessment and plan as stated above. Dennis Keane DO Jan 25, 2017 16:16 Ian Dodd MD Jan 27, 2017 07:07
--- NOTE | 2017-01-25 16:26 | PROG NOTE ---
[address] [address] PROGRESS NOTE PATIENT: ERNIE HARPER : 1955 MR#: [id number] ADMIT: 01/20/2017 JOB ID: [id number] DATE: 1. Possible cardiac arrest. 2. Anoxic encephalopathy. 3. Cardiomyopathy. 4. History of coronary artery disease. SUBJECTIVE: None. OBJECTIVE: Temperature 37.4 with T-max being 37.6. Pulse 71-93, respiratory rate 17, blood pressure 126/64, O2 sat on FiO2 of 60%, PEEP of 8, is 96%. I and O shows 3.3 L in, 2.5 L out. Cumulative I and O is 12 L positive. General appearance: Heavily sedated. At times not particularly responsive to voice. Sort of a lethargic groaning with tactile stimulation with some movement. Chest shows fairly good breath sounds bilaterally. There are some crackles in the right lower lung field and at the left base. No use of accessory muscles. Heart: Regular rhythm. Heart tones normal. Abdomen soft. Bowel tones present. Extremities: No pretibial edema. LABORATORY DATA: Shows a white count of 5800 with 78 polymorphonuclears, 9 lymphocytes, 8 monocytes. Hemoglobin 8.2, slowly drifting down. Platelet count 96,000 and stable. Sodium 141, potassium 3.9, chloride 104, CO2 is 22. BUN 13, creatinine 0.6. Calcium 8.4 with an albumin of 3.0. Phosphorus normal at 2.6. Magnesium 2.1. Total bilirubin 1.2. AST is 18. ALT 15, alkaline phosphatase 59. Troponin T has normalized at 0.01. Procalcitonin falling at 0.28. The patient was started on a pressure support trial. Did rather well. O2 sat running 97%. Arterial blood gases on FiO2 0.6, PEEP of 8, respiratory rate of 14, and tidal volume 700 show pO2 of only 75, pCO2 of 38, a pH 7.43. The patient started on a furosemide infusion at 3 mg an hour as we had problems with hypertension and tachyarrhythmias yesterday with furosemide 20 mg IV push. Repeat blood gases on an FiO2 of 45%, PEEP of 5, with pressure support of 5 showed a pO2 of 58, a pCO2 of 39, pH 7.43. ASSESSMENT: 1. Hypoxemia. Patient remains somewhat hypoxemic. Still with problems related to the hypoxemia. Chest x-ray continues to show widespread pulmonary interstitial and airspace opacities. Generous cardiac silhouette. Hypoxemia is the major problem causing our problems with extubation. Has resulted in tachyarrhythmias, both supraventricular and ventricular. In addition, he has underlying known coronary artery disease. Became hypotensive on the furosemide yesterday. Will continue to diurese the patient but utilize a continuous infusion so we can better control his urine output and hopefully avoid any hemodynamic compromise. 2. Anoxic encephalopathy. Having to sedate the patient because of the intubation. Other examiners have described good [employer] function and relatively clear sensorium when he is allowed to be free of the heavy sedation. PLAN: 1. Increase furosemide infusion to 5 mg/hour. Putting out about 250 mL/hour with the furosemide at 3 mg/hour. 2. Reassess condition in another couple hours to see how we are doing with diuresis and oxygenation. Unfortunately, his O2 saturation which is often in the high 90s only correlates with pO2s in the mid 70s. Problems discussed with the family. They understand the difficulties with the oxygen, especially in face of the known heart disease. Time spent so far in critical care 50 minutes.
--- NOTE | 2017-01-25 17:27 | NUR ---
P: Respiratory Distress. I: Pt placed on PST this am and FiO2 decreased to 45% with peep of 7 but pt sats dropped to 90%. Dr. Claudio saw the pt and decided not to extubate the pt. Pt placed back on previous vent settings. Precedex 0.4mcqs/kg/min and fentanyl 50 mcqs. PT here and pt got up to BSC and tolerated it fairly well. Pt was very diaphoretic and tired. Turns Q 2 hours. Lasix gtt at 5mg/hr and [place] output 1700cc. NSR with first degree heart block. Alert and nods appropriately. Denies pain at this time. SCD's on. E: Stable S: Restraints on for pt safety. Frequent rounding.
[2017-01-26] VITALS (15 sets, daily range): BP systolic 104–161; BP diastolic 56–101; PULSE 68–81; RESP 11–17; O2SAT 93–99
[2017-01-26] MEDS: Albuterol-Ipratropium 3 mL Inhalation Solution NEB SCH ×6 (00:08→20:10)
[2017-01-26] MEDS: Chlorhexidine 0.12% 15 mL Oral Solution MT SCH ×7 (00:41→22:58)
[2017-01-26] MEDS: Piperacillin-Tazo 3.375 Gm Inj 3.375 GM in Dextrose 5% Minibag Plus 50 ML IV SCH ×3 (02:10→20:49)
[2017-01-26] MEDS: Insulin Human REGular 300 Unit/3 mL Inj SUBQ SCH ×4 (02:14→20:30)
[2017-01-26] MEDS: Dexmedetomidine 400 mCg/100 mL 400 MCG in IV Premix 1 EACH IV SCH ×2 (03:11→13:19)
--- NOTE | 2017-01-26 05:02 | ABG ---
DateTimeAnalyzed 04:56:00 -_ pH ____7.475 - 7.350 7.450 pCO2 ___39.5__ -mmHg 35.0 45.0 pO2 ___84.6__ -mmHg 69.0 116 HCO3- ___28.7__ -mmol/L 22.0 26.0 ABE ____5.2__ -mmol/L -2.0 2.0 tHb ____9.1__ -g/dL 12.0 18.0 O2Hb ___94.3__ -% COHb ____1.7__ -% 0.0 1.5 MetHb ____0.8__ -% 0.4 1.5 sO2 ___96.7__ -% 25.0 FIO2 ___60.0__ -% PEEP ____5.0__ -cmH2O Set_RR ___12.0__ -b/min Vt __700.0__ -L Drawn By MK - Date/Time Notified____ 05:02:00 -_ Spontaneous_RR ___13.0__ -b/min Oxygen Device 1 VENTILATOR - Notified By MK - Notified Whom DR MONTOYA - B 755 -mmHg tO2 ___12.2__ -Vol% Franck test N/A -
[2017-01-26 05:15] LABS: BASOPHILS % (AUTO) 0.3 % (0-3); EOSINOPHILS % (AUTO) 1.2 % (0-5); MONOCYTES % (AUTO) 8.3 % (4-12); Mean Corpuscular Hemoglobin 31.3 pg (27.0-35.0); Mean Corpuscular Volume 96.4 fL (81-100); NEUTROPHILS % (AUTO) 73.5 % (40-74); Platelet Count 110 bil/L (150-400)
[2017-01-26 05:52] LABS: TROPONIN T 0.01 ug/L (0.0-0.011)
[2017-01-26 06:09] LABS: Magnesium 1.9 mg/dL (1.6-2.6); Phosphorus 3.1 mg/dL (2.5-4.9)
[2017-01-26] MEDS: Pantoprazole 4 mg/mL 10 mL Inj IVPUSH SCH ×2 (07:51→16:30)
[2017-01-26] MEDS: LacriLube S.O.P. 3.5 Gm Ophthalmic Ointment BOTH_EYES SCH ×2 (08:01→20:30)
--- NOTE | 2017-01-26 09:39 | DRSVH ---
PROCEDURE: X-RAY CHEST ONE VIEW, PORTABLE ([id number]) INDICATIONS: intubated TECHNIQUE: One view of the chest was acquired. COMPARISON: [facility], CR, XR CHEST 1VW (PORTABLE), 01/25/2017, 4:38. [facility], CR, XR CHEST 1VW (PORTABLE), 01/24/2017, 20:27. [facility], CR, XR CHEST 1VW (PORT ABLE), 01/23/2017, 5:05. [facility], CR, XR CHEST 1VW (PORTABLE), 01/22/2017, 8:17. FINDINGS: Surgical changes and devices: ET tube with tip 2 CM above the jerson. Enteric tube with tip below the diaphragm. Right PICC tip in the mid SVC. Lungs and pleura: Bilateral pleural effusions with dense bibasilar atelectasis, edema or infiltrate p rogressed since the previous study.. Mediastinum: Mediastinal contours appear normal. Heart size is prominent. Bones and chest wall: No suspicious bony lesions. Overlying soft tissues appear unremarkable. IMPRESSION: Worsening bilateral pleural effusions with bibasilar atelectasis, edema or infiltrates. Stable support lines. Dictated by: Reyes Souza M.D. on 01/26/2017 at 9:36 Approved by: Reyes Souza M.D. on 01/26/2017 at 9:37
[2017-01-26] MEDS: fentaNYL 2,500 mCg/250 mL 2,500 MCG in IV Premix 1 EACH IV SCH (13:40)
--- NOTE | 2017-01-26 14:01 | PCM.PNMED ---
Subjective Date of Service Jan 26, 2017 Subjective 61-year-old man status post cardiac arrest with mechanical ventilation prolonged due to hypoxic encephalopathy and hypoxic respiratory failure. Patient continues to be alert and appropriate showing good neurological function , although intubated. He is tolerating pressure support trial comfortably this morning. He denies pain, other than some chest wall lower sternal mechanical discomfort. Exam Vital Signs Vital Sign - Last Date Time Temp Pulse Resp B/P Pulse Ox O2 Delivery O2 Flow Rate FiO2 01/26/17 12:26 Ventilator 01/26/17 12:25 37.4 76 116/64 96 50 01/26/17 11:03 12 Intake and Output 01/25/17 01/25/17 01/26/17 Cumulative From/Thru 15:00 23:00 07:00 01/20/17 10:09 - 01/26/17 06:21 Intake Total 1304 ml 1343 ml 13382 ml Output Total 1700 ml 2600 ml 33014 ml Balance -396 ml -1257 ml 09587 ml Intake Oral 0 ml IV Total 388 ml 409 ml 52716 ml Tube Feeding 567 ml 854 ml 2291 ml Tube Irrigant 349 ml 80 ml 3316 ml Output Urine Total 1700 ml 2300 ml 54411 ml Gastric Drainage Total 300 ml 1150 ml # Bowel Movements 1 1 Exam General: Generally healthy-appearing middle-aged man on ventilator showing no acute distress HEENT: sclerae anicteric Neck: no apparent JVD Chest: clear to auscultation Cardiac: S1S2, regular no murmur Abdomen: BS normal, slightly distended, non-tender Extremities: No pitting edema Neuro: Alert and appropriate, cranial nerves symmetric, motor strength and coordination normal IVs and Medications Medications Reviewed: Medications were reviewed in detail Lab and Diagnostics Result Diagram: 01/26/17 0505 01/26/17 0505 X-Rays, CTs and MRIs PROCEDURE: CT BRAIN WITHOUT CONTRAST ([id number]) IMPRESSION: No acute intracranial abnormality is identified in this patient status post cardiac arrest. Dictated by: Emiliano Palencia M.D. on 01/20/2017 at 11:05 PROCEDURE: X-RAY CHEST ONE VIEW, PORTABLE ([id number]) IMPRESSION: Question of early asymmetric pulmonary edema versus pneumonia right chest greater than left. Dictated by: Emiliano Palencia M.D. on 01/20/2017 at 10:27 PROCEDURE: X-RAY CHEST ONE VIEW, PORTABLE ([id number]) IMPRESSION: Worsening bilateral pleural effusions with bibasilar atelectasis, edema or infiltrates. Stable support lines. Dictated by: Reyes Souza M.D. on 01/26/2017 at 9:36 . 12-lead ECG Sinus rhythm at [address] depressions in leads V3 and V4 and V5. The patient also has a flat T wave in. Left anterior Fascical block. Assessment & Plan 61-year-old male has history of CAD with stent who stopped taking his cardiac medications 1 year ago presents after V. fib arrest with approximate 5 minutes prior to CPR. Acute hypoxic respiratory failure secondary to cardiac arrest; present on admission; ongoing -Patient maintained on vent and managed by pulmonary/CCU team; will manage extubation decision -Pressure support trial today went well -Continues to show oxygen deficit with bibasilar infiltrates Ventricular fibrillation Cardiac arrest with pulmonary edema; present on admission; ongoing -Resuscitated with defibrillation after more than 5 minutes of rest in the sitting position -Noncritical LCx disease; echo appears to show an EF of 45% -Cardiology consultation and appreciate the recommendations -Hypothermia protocol completed -PICC line; arterial line -Stopped norepinephrine -Physical therapy Circulatory (possibly cardiogenic or sepsis with aspiration pneumonia ) shock; ongoing - Received fluid resuscitation and norepinephrine; now weaned off - Echocardiogram consistent with acute systolic congestive heart failure - Diuresis with Lasix drip initiated 01/25, with subsequently -1.2 L diuresis Probable aspiration pneumonia, present on admission. Initially asymmetric but subsequently bibasilar infiltrates with oxygen deficit. Differential is aspiration pneumonia versus CHF. -White count normalized 01/23/17 -Continue Zosyn for aspiration now on ventilator Acute blood loss anemia; present on admission; ongoing. Questionable upper GI bleed with positive Hemoccult; but no evidence of significant melena or hematemesis -As patient was warming his hematocrit dropped by nearly 4 points which is quite large for dilution; Heparin was stopped -Continue Protonix 40 mg twice daily IV -Advancing tube feeds Coronary artery disease, present on admission; ongoing -At this point is unclear if the patient had ischemia versus NSTEMI, and troponin reached 0.9 before trending down -Aspirin suppository daily -No Plavix given due to upper GI bleed and cardiology assessment Type II diabetes; present on admission; ongoing -A1c of 5.8 on 01/20 -Subcutaneous correctional regular insulin every 6 hours until eating Disposition: Patient showing good neurological recovery so far. He needs to be diuresed and hopefully this will improve his oxygenation. He did well with his spontaneous breathing trial today for likely require 1-2 more days on the vent. Full code GI Prophylaxis: Proton Pump Inhibitor VTE Mechanical Devices: Intermittant Pneumatic CD Resuscitation Status: CPR: Attempt Resuscitation Time spent 35 minutes Ian Dodd MD Jan 26, 2017 14:01
--- NOTE | 2017-01-26 14:09 | ABG ---
DateTimeAnalyzed 13:59:44 -_ pH ____7.503 - 7.350 7.450 pCO2 ___42.1__ -mmHg 35.0 45.0 pO2 ___76.1__ -mmHg 69.0 116 HCO3- ___33.1__ -mmol/L 22.0 26.0 ABE ____9.1__ -mmol/L -2.0 2.0 tHb ____8.9__ -g/dL 12.0 18.0 O2Hb ___95.1__ -% COHb ____2.5__ -% 0.0 1.5 MetHb ____0.0__ -% 0.4 1.5 sO2 ___97.1__ -% FIO2 ___50.0__ -% Pressure_Support ____5.0__ -cmH2O PEEP ____5.0__ -cmH2O Vt __780.0__ -L Drawn By NB - Date/Time Notified____ 14:08:00 -_ Oxygen Device 1 VENTILATOR - Notified By NB - Notified Whom ___DR. KENDREGAN - K+ ____3.5__ -mmol/L 3.5 5.0 tO2 ___12.0__ -Vol% Franck test _Positive -
[2017-01-26] MEDS ORDERED: KCl 40 mEq/100 mL Premix (K 3 - 3.7 & Creat < 2) IV ONE (14:55)
--- NOTE | 2017-01-26 15:35 | NUR ---
NUTRITION FOLLOW-UP: Assess: 61 YO M admitted to CCU with STEMI. He has completed hypothermia protocol and was successfully extubated this afternoon. Diet advanced to consistent carbohydrate by MD. PMHX: CAD, tobacco use, HTN, dyslipidemia, NSTEMI. DIET: Consistent carb. PO intake not yet recorded. LABS: Cr 0.68, Glu 226, A1c 5.8, Ca 8.4, Alb 3.3, Procalcitonin 0.24. MEDICATIONS: Reviewed. Lasix. GI: BM x 1 (01/23). SKIN: No issues noted. NUTRITION SUPPORT DISCONTINUED AT EXTUBATION: Glucerna 1.5 @ 72ml/hr. ANTHROPOMETRICS: Wt: 107.6 kg, BMI 30.0 kg/m2, admit wt: 106.8kg, IBW: 86.4 kg. ESTIMATED NEEDS: BMI Calories: 0028-8250 kcal/day (20-22 kcal/kg BW) Protein: 130-155 g/day (1.5-1.8 g/kg IBW) Fluids: 2705 ml/day (25ml/kg) NUTRITION DIAGNOSIS: 1) Inadequate oral intake related to decreased ability to consume sufficient energy as evidenced by NPO/Vent status - LIKELY IMPROVED WITH EXTUBATION, DIET ADVANCE. INTERVENTION: 1) In the event pt. does not tolerate PO, recommend restart enteral feeding at goal rate 72 mL/hr to provide 2376kcal and 130g pro (100% estimated needs). Fluid flush of 105ml q 2 hrs to provide additional 1260ml H20. TF + fluid flush provides 2460ml H20. MONITOR/EVALUATE: Diet tolerance, PO intake, wt, POC, GI, labs, nutrition status. Follow per high nutrition risk guidelines.
[2017-01-26] MEDS: Potassium Chloride 20 mEq SR Tablet PO SCH (16:24)
[2017-01-26] MEDS: Heparin 5,000 Unit/mL Inj SUBQ SCH (16:31)
--- NOTE | 2017-01-26 17:42 | NUR ---
Status Patient progressing towards planned outcomes. Alert and oriented x 3. Extubated at approximately 14:30 this afternoon. Denies SOA. Pulmonary hygiene encouraged hourly. Sp02 >95% on 60% fi02 with 60L 02 flow. Costal pain reported with deep breathing/cough, denies need for pain medication at this time. Continues in SR with PACs per case monitor. Pressure stable. Lasix gtt infusing at ordered. Montilla to DD with 1700cc urine out this shift. remains at bedside. Will continue to monitor.
[2017-01-26] MEDS: Ketorolac 15 mg/mL Inj IVPUSH PRN (21:00)
[2017-01-27] VITALS (17 sets, daily range): BP systolic 132–154; BP diastolic 62–93; PULSE 78–136; RESP 12–20; O2SAT 93–97
[2017-01-27] MEDS: Albuterol-Ipratropium 3 mL Inhalation Solution NEB SCH ×6 (00:16→23:27)
[2017-01-27] MEDS: Chlorhexidine 0.12% 15 mL Oral Solution MT SCH ×4 (00:44→15:49)
[2017-01-27] MEDS: Heparin 5,000 Unit/mL Inj SUBQ SCH ×3 (00:44→15:48)
[2017-01-27] MEDS: Insulin Human REGular 300 Unit/3 mL Inj SUBQ SCH ×4 (02:30→20:30)
[2017-01-27] MEDS: Piperacillin-Tazo 3.375 Gm Inj 3.375 GM in Dextrose 5% Minibag Plus 50 ML IV SCH ×3 (02:46→17:53)
--- NOTE | 2017-01-27 06:45 | NUR ---
Activity/Pain Pt requested several times throughout the shift that he would like to get up and walk, that he would like to sit at the edge of the bed. Orders from Samanthaon to first get out of bed with PT. Pt sat in bed for about an hour in chair position. Pt quickly wanted to return to laying down. Pt reported pain of 7/10, chest wall pain. Pt given Toradol 15mg IVP with good effect. Pt later rated his pain as 6/10. Pt states that he was satisfied with his pain relief and did not want further medication at this time. Medication teaching and pain management as well as pain scale teaching performed.
[2017-01-27] MEDS: Pantoprazole 4 mg/mL 10 mL Inj IVPUSH SCH ×2 (07:30→15:48)
[2017-01-27] MEDS: Potassium Chloride 20 mEq SR Tablet PO SCH ×3 (07:30→15:49)
[2017-01-27] MEDS: LacriLube S.O.P. 3.5 Gm Ophthalmic Ointment BOTH_EYES SCH ×3 (07:30→21:23)
[2017-01-27] MEDS: Ketorolac 15 mg/mL Inj IVPUSH PRN ×2 (07:31→18:37)
--- NOTE | 2017-01-27 09:41 | NUR ---
Evaluation completed. Please go to "Notes" then click on "Assessments and Notes" (bottom left corner of screen). Then select appropriate discipline tab on top of screen.
--- NOTE | 2017-01-27 12:20 | PCM.PNMED ---
Subjective Date of Service Jan 27, 2017 Subjective Patient is doing much better. Currently working with PT to get up at the bedside and to stand as tolerated. Patient is currently on high flow oxygen saturating in the mid 90s. While in the room the patient remove the high flow and after 3-5 minutes he maintained a saturation. He is conversive and overall improving. Exam Vital Signs Vital Sign - Last Date Time Temp Pulse Resp B/P Pulse Ox O2 Delivery O2 Flow Rate FiO2 01/27/17 12:08 37.3 84 18 154/93 94 hf nasal cannula 60 01/27/17 08:40 55 Intake and Output 01/26/17 01/26/17 01/27/17 Cumulative From/Thru 15:00 23:00 07:00 01/20/17 10:09 - 01/27/17 06:00 Intake Total 769 ml 293 ml 70369 ml Output Total 1902 ml 2300 ml 38437 ml Balance -1133 ml -2007 ml 7438 ml Intake Oral 0 ml 0 ml IV Total 169 ml 293 ml 39151 ml Tube Feeding 560 ml 2851 ml Tube Irrigant 40 ml 3356 ml Output Urine Total 1902 ml 2300 ml 73107 ml Gastric Drainage Total 1150 ml Other 0 ml 0 ml # Bowel Movements 0 1 Exam General: Well appearing male, no acute distress HEENT: PERRLA, EOMI, nonicteric, membranes moist Lymph: No lymphadenopathy Cardio: Regular rate and rhythm no murmurs rubs or gallops Respiratory: CTA bilaterally mild inspiratory wheezing Abdomen: Soft, positive bowel sounds, nontender, nondistended Extremities: No edema, sensation intact; pulses intact Psych: Appropriate mood and affect Neuro: CN II through XII grossly intact, sensation intact throughout Skin: No rash IVs and Medications Medications Reviewed: Medications were reviewed in detail Lab and Diagnostics Result Diagram: 01/26/17 0505 01/27/17 0805 X-Rays, CTs and MRIs PROCEDURE: CT BRAIN WITHOUT CONTRAST ([id number]) IMPRESSION: No acute intracranial abnormality is identified in this patient status post cardiac arrest. Dictated by: Emiliano Palencia M.D. on 01/20/2017 at 11:05 PROCEDURE: X-RAY CHEST ONE VIEW, PORTABLE ([id number]) IMPRESSION: Question of early asymmetric pulmonary edema versus pneumonia right chest greater than left. Dictated by: Emiliano Palencia M.D. on 01/20/2017 at 10:27 PROCEDURE: X-RAY CHEST ONE VIEW, PORTABLE ([id number]) IMPRESSION: Worsening bilateral pleural effusions with bibasilar atelectasis, edema or infiltrates. Stable support lines. Dictated by: Reyes Souza M.D. on 01/26/2017 at 9:36 . 12-lead ECG Sinus rhythm at [address] depressions in leads V3 and V4 and V5. The patient also has a flat T wave in. Left anterior Fascical block. Assessment & Plan 61-year-old male has history of CAD with stent who stopped taking his cardiac medications 1 year ago presents after V. fib arrest with approximate 5 minutes prior to CPR. Acute hypoxic respiratory failure secondary to cardiac arrest; present on admission; ongoing -Patient graduated from the vent as high flow oxygen -Patient continues to improve and will wean down oxygen -CXR today is much worse with bilateral pulmonary edema -Diuresis with Lasix drip -Repeat CXR in am Ventricular fibrillation Cardiac arrest with pulmonary edema; present on admission; ongoing -Resuscitated with defibrillation after more than 5 minutes of rest in the sitting position -Noncritical LCx disease; echo appears to show an EF of 45% -Cardiology consultation and appreciate the recommendations -Hypothermia protocol completed -PICC line -Continue physical therapy Circulatory (possibly cardiogenic or sepsis with aspiration pneumonia ) shock; ongoing - Received fluid resuscitation and norepinephrine; now weaned off - Echocardiogram consistent with acute systolic congestive heart failure - Diuresis with Lasix drip initiated 01/25 Probable aspiration pneumonia, present on admission. Initially asymmetric but subsequently bibasilar infiltrates with oxygen deficit. Differential is aspiration pneumonia versus CHF. -White count normalized 01/23/17 -Continue Zosyn for aspiration; can likely discontinue Saturday or Saturday Acute blood loss anemia; present on admission; ongoing. Questionable upper GI bleed with positive Hemoccult; but no evidence of significant melena or hematemesis -As patient was warming his hematocrit dropped by nearly 4 points which is quite large for dilution; Heparin was stopped -Continue Protonix 40 mg twice daily IV -Advancing oral feeding as tolerated Coronary artery disease, present on admission; ongoing -At this point is unclear if the patient had ischemia versus NSTEMI, and troponin reached 0.9 before trending down -Aspirin suppository daily -No Plavix given due to upper GI bleed and cardiology assessment Type II diabetes; present on admission; ongoing -A1c of 5.8 on 01/20 -Subcutaneous correctional regular insulin every 6 hours until eating Disposition: Pt likely to downgrade later this afternoon Full code GI Prophylaxis: Proton Pump Inhibitor VTE Mechanical Devices: Intermittant Pneumatic CD Resuscitation Status: CPR: Attempt Resuscitation Time spent 35 minutes Attending Statement I interviewed and examined the patient on rounds today. I agree with the assessment and plan as stated above. Dennis Keane DO Jan 27, 2017 12:20 Ian Dodd MD Jan 27, 2017 18:35
[2017-01-27] MEDS: fentaNYL 2,500 mCg/250 mL 2,500 MCG in IV Premix 1 EACH IV SCH (13:40)
--- NOTE | 2017-01-27 15:11 | NUR ---
Status Patient progressing. Chest wall pain controlled with PRN toradol and tylenol this shift. Continues on high flow nasal cannula with 60% fi02 and flow rate at 60L, o2 saturation maintained at 95% or > majority of shift. Denies dyspnea. Lungs diminished with intermittent wheezes. Pulmonary hygiene encourage while awake. SR with frequent PACs per hospital monitor. Pressure stable. Lasix gtt continued at 5cc/hr. Tolerating increased activity level, up to chair with assist x 1. Family remains at bedside. Will continue to monitor.
--- NOTE | 2017-01-27 15:13 | PROG NOTE ---
[address] [address] PROGRESS NOTE PATIENT: ERNIE HARPER : 1955 MR#: [id number] ADMIT: 01/20/2017 JOB ID: [id number] DATE: 01/26/2017 PULMONARY CRITICAL CARE FOLLOWUP NOTE: PROBLEM LIST: 1. Post VFIB cardiac arrest. 2. Anoxic encephalopathy. 3. Cardiomyopathy. 4. History of coronary artery disease. 5. Aspiration pneumonitis. 6. Hypoxemic respiratory failure. SUBJECTIVE: Denies shortness of breath. Has some right lateral wall chest pain with coughing. OBJECTIVE: Temperature 36.5. Pulse low 70s. Respiratory rate 12, with ventilator set at 12. Blood pressure 119/56. O2 sat on FiO2 of 60%, PEEP of 8 is 96%. I and O shows 3 L in, 2.5 L out. General appearance: Lethargic, but will awake easily to voice. Carries on appropriate communication. Eyes: Conjunctivae are pink. Chest: Fair breath sounds bilaterally. Lung desai relatively clear. Maybe a bit decreased at the right base. Hint of a few crackles, though only intermittent. Heart: Regular rhythm. Heart tones seem normal. Abdomen: Soft. Bowel tones present. Extremities: No pretibial edema. LABORATORY DATA: Shows a white count of 6000 with 73 polymorphonuclears, 13 lymphocytes, 8 monocytes. Hemoglobin stable at 8.8. Platelet count rising at 110,000. Sodium 139, potassium 3.5, chloride 99, CO2 is 26, BUN 16, creatinine 0.6. Calcium 8.4 with an albumin of 3.3. Phosphorus normal at 3.1, magnesium normal at 1.9. Total bilirubin 0.9. Transaminases normal. Alkaline phosphatase is normal. Troponin-T 0.01. Arterial blood gas on an FiO2 of 60%, PEEP actually at 8 though set at 5, respiratory rate 12, tidal volume of 700 shows a pO2 of 84, pCO2 of 39, and pH 7.47. The patient is a bit more awake. Very appropriate. We had started him on an IV furosemide infusion as he had over-diuresis with IV push furosemide. Putting out about 200-250 mL an hour and diuresing nicely. Mental status continued to improve. Oxygenation was fine. Taking quite deep breaths. Evaluated the patient for extubation. Although it was somewhat borderline, it was felt that he would benefit from extubation as he is quite awake, alert, and appropriate. Taking deep breaths. The problem all along has been his oxygenation, with mostly a right unilateral pulmonary edema. In any case, he was extubated. Initially placed on an Oxymizer mask at about 10 L flow. Initial O2 sats were about 93, but over the course of the next hour or so increased to maybe 95-96. ASSESSMENT: 1. Hypoxemic respiratory failure. Doing quite a bit better. The problem has been his oxygenation all along. Doing much better with the diuresis. However, his O2 saturations are somewhat misleading. O2 sats in the mid 90s correlate only with pO2's in the 70s to 80 range. Therefore, given his coronary artery disease, albeit what appears to be a spasm in the left circumflex artery, I think we should try to keep his pO2's in a reasonable range. Therefore goal would be an O2 sat of maybe 95%. Right now he is doing borderline well with the OxyMask. We can either raise the OxyMask or he may benefit from a little bit of positive expiratory pressure, and therefore might consider using high-flow later today or tonight if indeed his saturations were of concern. 2. Anoxic encephalopathy. Seems to be improving. PLAN: 1. Extubate to OxyMask, possibly high-flow system. 2. Continue IV infusion of Lasix. The patient was subsequently extubated and did reasonably well. However, given the problem he had with physical therapy yesterday, becoming quite tired, somewhat tachycardic, it was felt that we will hold the physical therapy today and possibly resume it in the next day or so. Discussed at length the problem with oxygenation, especially in the face of coronary artery disease and tachyarrhythmias. However, he seems to be doing quite well at this time. TIME: Time spent in critical care is 70 minutes.
--- NOTE | 2017-01-27 15:28 | PROG NOTE ---
[address] [address] PROGRESS NOTE PATIENT: ERNIE HARPER : 1955 MR#: [id number] ADMIT: 01/20/2017 JOB ID: [id number] DATE: 01/27/2017 1. Status post VFib arrest. 2. Coronary artery disease, with nonocclusive disease/spasms in the left circumflex. 3. Aspiration pneumonitis. 4. Right-sided pulmonary edema. SUBJECTIVE: The patient complains of pain, right lateral chest, associated with deep breaths, to some extent turning, especially with coughing. Appetite fair. Taking some orals. Some cough. Not having particular problems with thick phlegm. ASSESSMENT: VITAL SIGNS: Temperature 37.3. Pulse mid 70s to mid 80s. Respiratory rate 14-18, blood pressure 154/93. O2 sat on high-flow nasal cannula with an FiO2 of 0.6 with a flow of 50 L/ minute results in an O2 sat of 97%. General appearance: Awake, alert, carrying on a conversation easily. Eyes: Conjunctivae are pink. Mental status appropriate. Chest: Fairly good breath sounds bilaterally. Left lung field is clear. Maybe a few crackles at the right base laterally. Nursing reports bruising on the right lateral and posterior chest. Heart: Regular rhythm. Heart tones normal. Abdomen soft. Bowel tones are present. Extremities: No pretibial edema. I and O over the past 24 hour shows 2.1 L in, 4.5 L out. He has already put out 2.3 L today. ASSESSMENT: Acute hypoxemic respiratory failure. Doing better. Trying to keep his O2 saturations in the mid to high 90s. Doing reasonably well with the high-flow system. Have been slowly niggling flows and the FiO2 down. Currently doing reasonably well. Again, given his coronary artery disease and the slight discrepancy between O2 sats and pO2 would like to keep the O2 sat 95 or above. Given his anoxic encephalopathy along with the coronary artery disease, I think we are accomplishing that and would continue the high-flow system for another 24 hours, allowing us to take off some more fluid. PLAN: 1. Continue Lasix infusion. 2. Chest x-ray, mag stephania in a.m. Time spent in critical care: 45 min MTDD
[2017-01-28] VITALS (16 sets, daily range): BP systolic 105–147; BP diastolic 51–79; PULSE 74–96; RESP 17–24; O2SAT 60–98
[2017-01-28] MEDS: Heparin 5,000 Unit/mL Inj SUBQ SCH ×4 (00:33→23:43)
[2017-01-28] MEDS: Ketorolac 15 mg/mL Inj IVPUSH PRN ×4 (00:36→23:44)
[2017-01-28] MEDS: Insulin Human REGular 300 Unit/3 mL Inj SUBQ SCH ×2 (02:30→08:30)
[2017-01-28] MEDS: Piperacillin-Tazo 3.375 Gm Inj 3.375 GM in Dextrose 5% Minibag Plus 50 ML IV SCH ×2 (03:10→10:39)
[2017-01-28] MEDS: Albuterol-Ipratropium 3 mL Inhalation Solution NEB SCH ×5 (04:01→20:18)
[2017-01-28 05:12] LABS: BASOPHILS % (AUTO) 0.4 % (0-3); MONOCYTES % (AUTO) 10.6 % (4-12); Mean Corpuscular Hemoglobin 31.4 pg (27.0-35.0); Mean Corpuscular Volume 94.2 fL (81-100); NEUTROPHILS % (AUTO) 62.4 % (40-74); Platelet Count 165 bil/L (150-400)
[2017-01-28 05:33] LABS: Magnesium 2.1 mg/dL (1.6-2.6); Phosphorus 3.5 mg/dL (2.5-4.9)
--- NOTE | 2017-01-28 06:23 | NUR ---
RESP/PAIN/MOBILITY HIGH FLOW O2 AT 50 FLOW/60% FIO2 MAINTAINING SATS ABOVE 95%, TOLERATING WELL, UP IN CHAIR TIMES 2 FOR 30 MINUTES EACH TIME, ABLE TO USE FWW AND TRANSFER WITH 1-2 ASSIST, TAKING TORADOL EVERY 6 HOURS FOR MUSCULAR CHEST PAIN FAIR RELIEF, lASIX GTT AT 5MLS/HOUR, LUCAS CATH REMAINS , SEE FLOW RECORDS
--- NOTE | 2017-01-28 08:10 | DRSVH ---
PROCEDURE: X-RAY CHEST ONE VIEW, PORTABLE ([id number]) INDICATIONS: aspiration pneumonia TECHNIQUE: One view of the chest was acquired. COMPARISON: [facility], CR, XR CHEST 1VW (PORTABLE), 01/26/2017, 3:26. FINDINGS: Surgical changes and devices: Right upper extremity PICC line is stable in position. There is interv al removal of the endotracheal and nasogastric tubes. Lungs and pleura: There are persistent bilateral small pleural effusions with associated compressive atelectasis or consolidation. Mild pulmonary edema appears unchanged. Mediastinum: Mediastinal contours appear unchanged. Heart size is within normal limits. Bones and chest wall: No suspicious bony lesions. Overlying soft tissues appear unremarkable. IMPRESSION: 1. No significant interval change in cardiopulmonary status with persistent pleural effusions, bibas ilar compressive atelectasis or consolidation, and mild pulmonary edema. Dictated by: Jb Perez M.D. on 01/28/2017 at 8:01 Approved by: Jb Perez M.D. on 01/28/2017 at 8:09
[2017-01-28] MEDS: Potassium Chloride 20 mEq SR Tablet PO SCH ×2 (08:30→16:43)
[2017-01-28] MEDS: LacriLube S.O.P. 3.5 Gm Ophthalmic Ointment BOTH_EYES SCH (08:30)
[2017-01-28] MEDS: Pantoprazole 4 mg/mL 10 mL Inj IVPUSH SCH ×2 (08:30→16:44)
[2017-01-28] MEDS ORDERED: Furosemide 10 mg/mL 10 mL Inj IVPUSH ONE (13:35)
--- NOTE | 2017-01-28 13:37 | PCM.PNMED ---
Subjective Date of Service Jan 28, 2017 Subjective 61-year-old male who presented with V. fib arrest who is now completed cooling protocol and has been diuresed. History the patient was able to get up with physical therapy to his chair and standing quickly desaturated even well on 50 L of high flow. This morning the patient's conversing well and wants to get up and walk the halls. During the interview the patient remove the high flow within 5 minutes was saturating in the low 80s. Chest x-ray today looks moderately improved. Patient's Lasix drip was stopped this morning and replaced with 60 mg IV push Exam Vital Signs Vital Sign - Last Date Time Temp Pulse Resp B/P Pulse Ox O2 Delivery O2 Flow Rate FiO2 01/28/17 12:43 84 18 93 60 01/28/17 12:43 Nasal Cannula 50 01/28/17 11:50 37.2 140/59 Intake and Output 01/27/17 01/27/17 01/28/17 Cumulative From/Thru 15:00 23:00 07:00 01/20/17 10:09 - 01/28/17 06:08 Intake Total 585 ml 274 ml 95561 ml Output Total 1400 ml 1200 ml 75955 ml Balance -815 ml -926 ml 5697 ml Intake Oral 300 ml 0 ml 300 ml IV Total 285 ml 274 ml 94063 ml Tube Feeding 2851 ml Tube Irrigant 3356 ml Output Urine Total 1400 ml 1200 ml 32356 ml Gastric Drainage Total 1150 ml Other 0 ml # Bowel Movements 1 Exam General: Well appearing male, no acute distress with high flow on Cardio: Regular rate and rhythm no murmurs rubs or gallops Respiratory: CTA bilaterally, course, mild inspiratory wheezing Abdomen: Soft, positive bowel sounds, nontender, nondistended Extremities: No edema, sensation intact; pulses intact Psych: Appropriate mood and affect IVs and Medications Medications Reviewed: Medications were reviewed in detail Lab and Diagnostics Result Diagram: 01/28/17 0505 01/28/17 0505 X-Rays, CTs and MRIs PROCEDURE: CT BRAIN WITHOUT CONTRAST ([id number]) IMPRESSION: No acute intracranial abnormality is identified in this patient status post cardiac arrest. Dictated by: Emiliano Palencia M.D. on 01/20/2017 at 11:05 PROCEDURE: X-RAY CHEST ONE VIEW, PORTABLE ([id number]) IMPRESSION: Question of early asymmetric pulmonary edema versus pneumonia right chest greater than left. Dictated by: Emiliano Palencia M.D. on 01/20/2017 at 10:27 PROCEDURE: X-RAY CHEST ONE VIEW, PORTABLE ([id number]) IMPRESSION: Worsening bilateral pleural effusions with bibasilar atelectasis, edema or infiltrates. Stable support lines. Dictated by: Reyes Souza M.D. on 01/26/2017 at 9:36 . 12-lead ECG Sinus rhythm at [address] depressions in leads V3 and V4 and V5. The patient also has a flat T wave in. Left anterior Fascical block. Assessment & Plan 61-year-old male has history of CAD with stent who stopped taking his cardiac medications 1 year ago presents after V. fib arrest with approximate 5 minutes prior to CPR. Acute hypoxic respiratory failure secondary to cardiac arrest; present on admission; ongoing -Patient graduated from the vent and is currently on high flow oxygen at 15 L -Patient continues to improve and will wean down oxygen as tolerated -CXR mildly improved today with persistent bilateral effusions and edema -Diuresis with Lasix 40mg IV push; discontinue drip -Repeat CXR in am Ventricular fibrillation Cardiac arrest with pulmonary edema; present on admission; ongoing -Resuscitated with defibrillation after more than 5 minutes of rest in the sitting position -Noncritical LCx disease; echo appears to show an EF of 35% -Cardiology consultation and appreciate the recommendations -Hypothermia protocol completed -PICC line in place -Continue physical therapy Circulatory (possibly cardiogenic or sepsis with aspiration pneumonia ) shock; ongoing - Received fluid resuscitation and norepinephrine; now weaned off - Echocardiogram consistent with acute systolic congestive heart failure - Diuresis with Lasix drip initiated 01/25 and stopped 01/28/17 Probable aspiration pneumonia, present on admission. Initially asymmetric but subsequently bibasilar infiltrates with oxygen deficit. Differential is aspiration pneumonia versus CHF. -White count normalized 01/23/17 -Continue Zosyn for aspiration; can likely discontinue Saturday Acute blood loss anemia; present on admission; ongoing. Questionable upper GI bleed with positive Hemoccult; but no evidence of significant melena or hematemesis -As patient was warming his hematocrit dropped by nearly 4 points which is quite large for dilution; Heparin was stopped -Continue Protonix 40 mg twice daily IV -heart healthy diet Coronary artery disease, present on admission; ongoing -At this point is unclear if the patient had ischemia versus NSTEMI, and troponin reached 0.9 before trending down -Aspirin suppository daily -No Plavix given due to upper GI bleed and cardiology assessment Type II diabetes; present on admission; ongoing -A1c of 5.8 on 01/20 -Lantus 10 units at bedtime -Low Humulin correctional Disposition: Patient's discharge rests on his ability to wean down-flow O2, which she has been unable to do so far. Full code GI Prophylaxis: Proton Pump Inhibitor VTE Mechanical Devices: Intermittant Pneumatic CD Resuscitation Status: CPR: Attempt Resuscitation Time spent 35 minutes Attending Statement I interviewed and examined the patient on rounds today. Persistent acute respiratory failure with hypoxia. I agree with the assessment and plan as stated above. Dennis Keane DO Jan 28, 2017 13:37 Ian Dodd MD Jan 29, 2017 07:10
[2017-01-28] MEDS ORDERED: Furosemide 10 mg/mL 4 mL Inj IVPUSH ONE (13:40)
[2017-01-28] MEDS ORDERED: Glucose 40% Oral Gel 15 Gm Tube PO PRN (13:50)
--- NOTE | 2017-01-28 16:00 | NUR ---
Ambulation Pt up to chair with PT for lunch, on high flow 50L/ 80% sats 96% around 12. After lunch changed PT over to Oxymask 15L and pt remained seated in chair till around 1430, O2 sats consistent at 98-100%. When getting back to bed pt was up SBA with FWW.
[2017-01-28] MEDS ORDERED: 0.9% Sodium Chloride 250 ML ONE (17:00)
[2017-01-28] MEDS: Insulin LISPRO 300 Unit/3 mL Inj SUBQ SCH ×2 (17:30→21:23)
--- NOTE | 2017-01-28 17:36 | NUR ---
Social Work: Multidisciplinary Rounds/Continued Discharge Planning D: Pt discussed in multidisciplinary rounds. Pt remains in PCC status on high flow 02. Pt with desaturations with mobility and ambulation. PT worked with pt today. Pt able to ambulate 15 feet with FWW before desating. Current discharge recommendation is for SNF. PROJECT MANAGEMENT SPECIALIST has not yet follow up with the patient about this as provider has not yet placed an order. PROJECT MANAGEMENT SPECIALIST would like to clarify with attending provider whether he expects pt to progress with ambulation as his respiratory status progresses or if a SNF needs to be explored. A: Pt who is I at baseline and lives with his spouse in [place]. P: Evolving; PROJECT MANAGEMENT SPECIALIST to continue to follow and to discuss discharge needs with attending provider. PROJECT MANAGEMENT SPECIALIST to coordinate discharge plans with orders from provider. JAIME Law
--- NOTE | 2017-01-28 18:37 | PROG NOTE ---
[address] [address] PROGRESS NOTE PATIENT: ERNIE HARPER : 1955 MR#: [id number] ADMIT: 01/20/2017 JOB ID: [id number] DATE: 01/28/2017 PULMONARY CRITICAL CARE PROGRESS NOTE: The patient is a 61-year-old man presenting to the hospital with ventricular fibrillation cardiac arrest on January 20, 2017 and respiratory failure. INTERVAL HISTORY: He was extubated yesterday and remains on high flow oxygen via nasal cannula at 60% FiO2. He appears comfortable and denies any chest pain, shortness of breath. He has been coughing up some sputum, however. Also, denies fevers, chills. REVIEW OF SYSTEMS: Are as above. PHYSICAL EXAMINATION: Vital signs reviewed. He is afebrile, pulse 86, respirations 20, BP 140/59, sats 98% on 60% FiO2 and 50 L oxygen. General: Is sitting up in bed, alert, oriented. Chest is clear to auscultation. LABORATORIES: Reviewed. Chest x-ray reviewed and shows right greater than left bilateral pleural effusions. ASSESSMENT AND RECOMMENDATIONS: 1. Status post ventricular fibrillation cardiac arrest on January 20, 2017. 2. Acute hypoxic respiratory failure-extubated on January 27, 2017. 3. Coronary artery disease with 80% left circumflex narrowing based on cardiac cath, January 20. 4. Aspiration pneumonia. 5. Complete hypothermia protocol with good neurologic recovery. This 61-year-old man with history of noncompliance to medications and prior OH in 2013 is presenting with V-fib cardiac arrest in the field on January 20, 2017. He had a cardiac cath on the same day that showed a 70% to 80% left circumflex lesion that was not intervened on at that time because of concern for possible gastrointestinal bleed. He has improved post hypothermia protocol and extubated yesterday but remains on high-flow nasal cannula. I would like to switch him to oxy mask and see if he tolerates this and continue to wean his oxygenation. His chest x-ray shows bilateral effusions most likely due to volume overload. He remains on a Lasix drip and has been diuresing well the last few days. I see no signs of infection and he remains on Zosyn for aspiration pneumonia. I am going to check a procalcitonin and a BNP today. We will give him an incentive spirometer and see if this helps improve oxygenation. He is also working with Physical Therapy. I spoke with Cardiology and Dr. June who is covering for Cardiology is planning on taking him back to the r and d lab technician once his oxygenation improves and see if the circumflex lesion needs to be stented. He has completed eight days of Zosyn, and I think that can be stopped now. He is on appropriate DVT and GI prophylaxis. TIME: Critical care time is 40 minutes.
[2017-01-28] MEDS: Insulin GLARgine 100 Unit/mL Syringe SUBQ SCH (21:23)
[2017-01-29] VITALS (16 sets, daily range): BP systolic 121–171; BP diastolic 58–72; PULSE 78–135; RESP 18–22; O2SAT 94–99
[2017-01-29] MEDS: Albuterol-Ipratropium 3 mL Inhalation Solution NEB SCH ×7 (00:19→23:53)
--- NOTE | 2017-01-29 00:44 | PROG NOTE ---
[address] [address] PROGRESS NOTE PATIENT: ERNIE HARPER : 1955 MR#: [id number] ADMIT: 01/20/2017 JOB ID: [id number] DATE: 01/28/2017 CHIEF COMPLAINT: The patient came in with VF arrest. He had a cardiac catheterization revealing evidence for stenosis of the circumflex artery in the mid to distal vessel just prior to the takeoff of all his distal branches. At the time on the initial pictures it does look like there is rather diffuse spasm. It looks like he was also given nitroglycerin which improved the appearance in the vessel. His EKG shows lateral posterolateral changes. At this time, he is doing well without chest pain, chest pressure. He is on high-flow oxygen and is being weaned off of that medication. He also has history of similar findings estimated in the range of probably 50% of the circumflex artery back in 2013. Apparently, he has not been entirely compliant with medications per his . PHYSICAL EXAMINATION: His blood pressure is 140/59, heart rate is 86, sats are 90% on high-flow. General: In no acute distress, speaking in full sentences without apparent shortness of breath. CURRENT MEDICATIONS: Include: 1. Toradol. 2. Heparin subcu. 3. Aspirin. 4. I do not see any beta-blockers or vasodilatory medications at this time. LABORATORIES: Showed a troponin that went up to 0.127 on January 22. It trended downward. Now, actually down to normal. Today, sodium is 141, potassium 2.6, chloride and bicarb 99 and 26, BUN and creatinine 21 and 0.8. Hematology shows that he is mildly anemic and this has been stable throughout his course. White count 5, H and H 9.8 and 29.4, platelets 165,000. These were actually lower throughout his course, but have normalized. His chest x-ray is read as showing persistent pleural effusions, bibasilar compressive atelectasis or consolidation, and mild pulmonary edema. IMPRESSION: The patient came in with VF arrest. I think he was just recently extubated. The feeling is that spasm may have contributed to his recent issues PLAN: 1. We could put him on long-acting nitrate and see how he tolerates this, as well as a beta-coreen. 2. It might be reasonable to take him back to the laboratory clerk to reassess the circumflex artery and see if a stent is needed (as spasm could contribute to ischemia). This may require fractional flow assessment measurement. However, as he is still weaning down on his levels of oxygen we will defer any invasive assessments until he has improved his pulmonary status. 30 minutes was spent reviewing the patient's records, cath, echo, speaking with and examining him and making plans for followup/further assessment IOANA
[2017-01-29 05:11] LABS: BASOPHILS % (AUTO) 0.3 % (0-3); EOSINOPHILS % (AUTO) 2.4 % (0-5); MONOCYTES % (AUTO) 8.4 % (4-12); Mean Corpuscular Hemoglobin 31.3 pg (27.0-35.0); Mean Corpuscular Volume 93.1 fL (81-100); NEUTROPHILS % (AUTO) 68.2 % (40-74); Platelet Count 187 bil/L (150-400)
[2017-01-29] MEDS: Potassium Chloride 20 mEq SR Tablet PO SCH ×2 (08:06→17:56)
[2017-01-29] MEDS: Pantoprazole 4 mg/mL 10 mL Inj IVPUSH SCH ×2 (08:07→16:32)
[2017-01-29] MEDS: Heparin 5,000 Unit/mL Inj SUBQ SCH ×3 (08:07→23:32)
[2017-01-29] MEDS: Insulin LISPRO 300 Unit/3 mL Inj SUBQ SCH ×4 (08:09→21:50)
[2017-01-29] MEDS: Ketorolac 15 mg/mL Inj IVPUSH PRN ×2 (08:19→19:52)
--- NOTE | 2017-01-29 11:36 | NUR ---
NUTRITION FOLLOW-UP: Assess: 61 YO M admitted to CCU with STEMI. He has completed hypothermia protocol and was successfully extubated. Diet advanced to heart healthy with fair PO X 1 meal. PMHX: CAD, tobacco use, HTN, dyslipidemia, NSTEMI. DIET: Heart Healthy, Diabetic. PO intake 50% X 1 meal. LABS: Cr 0.71, Glu 134 MEDICATIONS: Reviewed. Insulin. GI: BM x 1 (01/25). SKIN: No issues noted. NUTRITION SUPPORT DISCONTINUED AT EXTUBATION: Glucerna 1.5 @ 72 ml/hr. ANTHROPOMETRICS: Wt: 100.0 kg, BMI 28.3 kg/m2, admit wt: 106.8 kg, IBW: 86.4 kg. ESTIMATED NEEDS: BMI Calories: 4058-3497 kcal/day (20-22 kcal/kg BW) Protein: 104-130 g/day (1.2-1.5 g/kg IBW) Fluids: 2705 ml/day (25ml/kg) NUTRITION DIAGNOSIS: 1) Inadequate oral intake related to decreased ability to consume sufficient energy as evidenced by NPO/Vent status - IMPROVED. INTERVENTION: 1) Continue current diet as ordered. MONITOR/EVALUATE: Diet tolerance, PO intake, wt, POC, GI, labs, nutrition status. Follow per moderate nutrition risk guidelines.
--- NOTE | 2017-01-29 11:42 | PROG NOTE ---
[address] [address] PROGRESS NOTE PATIENT: ERNIE HARPER : 1955 MR#: [id number] ADMIT: 01/20/2017 JOB ID: [id number] DATE: 01/29/2017 PULMONARY PROGRESS NOTE: The patient is a 61-year-old man admitted on January 20, 2017 with [id number] ventricular fibrillation cardiac arrest and acute respiratory failure most likely of cardiac etiology. INTERVAL HISTORY: Oxygenation continues to improve, and he is down to 6 L nasal cannula at the moment, working with incentive spirometry. He is still coughing up some sputum, but says this has improved. REVIEW OF SYSTEMS: Denies fevers, chills, chest pain. PHYSICAL EXAMINATION: Vital signs reviewed. Afebrile. Pulse 90, respirations 18, BP 170/62, sats 95% on 6 L nasal cannula. General alert, oriented, sitting up in bed. Chest is clear to auscultation. LABORATORIES: Reviewed. ASSESSMENT AND RECOMMENDATIONS: 1. Acute hypoxic respiratory failure-intubated on January 20, extubated January 27 currently down to 6 L nasal cannula. 2. Coronary artery disease with 80% left circumflex narrowing based on cardiac cath January 20. 3. Aspiration pneumonia-completed therapy. 4. Status post ventricular fibrillation cardiac arrest on January 20. Oxygenation continues to improve and I turned his O2 down to 4 L today. He is doing well with pulmonary toilet and with ongoing diuresis. Plan is for tentatively repeat cardiac cath per Dr. June once his oxygenation is stable enough. There is not much else for me to add from a pulmonary standpoint since he has no other ongoing pulmonary issues. Please continue to wean his oxygen, diuresis, and pursue pulmonary toilet. [id number]
--- NOTE | 2017-01-29 15:55 | PROG NOTE ---
[address] [address] PROGRESS NOTE PATIENT: ERNIE HARPER : 1955 MR#: [id number] ADMIT: 01/20/2017 JOB ID: [id number] DATE: 01/29/2017 CHIEF COMPLAINT: The patient is overall doing better. His oxygenation is improving. His oxygen requirements have diminished. He is still coughing up some sputum. He denies any chest pain, chest pressure. PHYSICAL EXAMINATION: Blood pressure is in the 140s to 170s systolic. Heart rates in the 80s to 90s. Sats are 96% on 4 L. He is getting respiratory treatments. General: No acute distress. Speaking in full sentences without apparent shortness of breath. CURRENT MEDICATIONS: Include albuterol, heparin subcu, aspirin, potassium. His labs today show white count 5.8, H and H 10.4/30.9, improved. Platelets are normalizing at 187,000. Chemistry shows a sodium 138, potassium 3.5, chloride and bicarb 98 and 26 respectively. BUN and creatinine 21 and 0.71. IMPRESSION: The patient is gradually improving. He had a circumflex stenosis appreciated. Spasm of this vessel may have contributed to his current event. He is being considered for an ICD for secondary prevention. I have discussed his case with Pulmonary and they would like to have the reassessment of the coronary stenosis. PLAN: I am going to add low-dose metoprolol, which we can up titrate rate as tolerated. He is on aspirin a day. I probably should put him on a statin as well if he is not on one of those. I would anticipate his oxygenation should improve even more by tomorrow and will try to get him on the cath schedule on and hopefully talk about defibrillator by the end of the week. 20 minutes was spent with the patient, reviewing his current records and discussing his case with the pulmonary/hospitalist team IOANA
--- NOTE | 2017-01-29 16:40 | PCM.PNMED ---
Subjective Date of Service Jan 29, 2017 Subjective Patient continues to improve both his pulmonary and overall function. Patient was walking the halls today on 6 L nasal cannula saturating around 91%. Cardiology was asked to reassess the patient for possible cath to assess the left circumflex. This is tentative for . Dr. Quinn of electrophysiology will evaluate for AICD. Placement could possibly happen on Saturday Exam Vital Signs Vital Sign - Last Date Time Temp Pulse Resp B/P Pulse Ox O2 Delivery O2 Flow Rate FiO2 01/29/17 15:45 101 01/29/17 15:45 37.0 22 121/58 96 Nasal Cannula 5.00 01/28/17 12:43 60 Intake and Output 01/28/17 01/28/17 01/29/17 Cumulative From/Thru 15:00 23:00 07:00 01/20/17 10:09 - 01/29/17 06:02 Intake Total 676 ml 520 ml 21898 ml Output Total 2100 ml 1100 ml 73653 ml Balance -1424 ml -580 ml 3693 ml Intake Oral 518 ml 400 ml 1218 ml IV Total 158 ml 120 ml 63880 ml Tube Feeding 2851 ml Tube Irrigant 3356 ml Output Urine Total 2100 ml 1100 ml 11869 ml Gastric Drainage Total 1150 ml Other 0 ml # Bowel Movements 1 Exam General: Well appearing male, no acute distress with nasal cannula Cardio: Regular rate and rhythm no murmurs rubs or gallops Respiratory: CTA bilaterally, remains coarse Abdomen: Soft, positive bowel sounds, nontender, nondistended Extremities: No edema, sensation intact; pulses intact Psych: Appropriate mood and affect IVs and Medications Medications Reviewed: Medications were reviewed in detail Lab and Diagnostics Result Diagram: 01/29/1744401/29/17444 X-Rays, CTs and MRIs PROCEDURE: CT BRAIN WITHOUT CONTRAST ([id number]) IMPRESSION: No acute intracranial abnormality is identified in this patient status post cardiac arrest. Dictated by: Emiliano Palencia M.D. on 01/20/2017 at 11:05 PROCEDURE: X-RAY CHEST ONE VIEW, PORTABLE ([id number]) IMPRESSION: Question of early asymmetric pulmonary edema versus pneumonia right chest greater than left. Dictated by: Emiliano Palencia M.D. on 01/20/2017 at 10:27 PROCEDURE: X-RAY CHEST ONE VIEW, PORTABLE ([id number]) IMPRESSION: Worsening bilateral pleural effusions with bibasilar atelectasis, edema or infiltrates. Stable support lines. Dictated by: Reyes Souza M.D. on 01/26/2017 at 9:36 . 12-lead ECG Sinus rhythm at [address] depressions in leads V3 and V4 and V5. The patient also has a flat T wave in. Left anterior Fascical block. Assessment & Plan 61-year-old male has history of CAD with stent who stopped taking his cardiac medications 1 year ago presents after V. fib arrest with approximate 5 minutes prior to CPR. Acute hypoxic respiratory failure secondary to cardiac arrest; present on admission; resolving -Patient graduated from the vent and is currently on high flow oxygen at 15 L -Patient continues to improve and will wean down oxygen as tolerated -CXR mildly improved today with persistent bilateral effusions and edema -Continue to wean O2. Coronary artery disease, present on admission; ongoing -At this point is unclear if the patient had ischemia versus NSTEMI, and troponin reached 0.9 before trending down -Aspirin suppository daily -No Plavix given due to upper GI bleed and cardiology assessment -repeat cath, possibly -Started on low-dose metoprolol Ventricular fibrillation Cardiac arrest with pulmonary edema; present on admission; resolved -Resuscitated with defibrillation after more than 5 minutes of rest in the sitting position -Noncritical LCx disease; echo appears to show an EF of 35% -Cardiology consultation and appreciate the recommendations -Hypothermia protocol completed -PICC line in place -Continue physical therapy -Patient to undergo cardiac cath in assessment for AICD -Cardiology starting low-dose metoprolol Circulatory (possibly cardiogenic or sepsis with aspiration pneumonia ) shock; resolved - Received fluid resuscitation and norepinephrine; now weaned off - Echocardiogram consistent with acute systolic congestive heart failure - Diuresis with Lasix drip initiated 01/25 and stopped 01/28/17 Probable aspiration pneumonia, present on admission. Initially asymmetric but subsequently bibasilar infiltrates with oxygen deficit. Differential is aspiration pneumonia versus CHF. -White count normalized 01/23/17 -Discontinue Zosyn Acute blood loss anemia; present on admission; stable. Questionable upper GI bleed with positive Hemoccult; but no evidence of significant melena or hematemesis -As patient was warming his hematocrit dropped by nearly 4 points which is quite large for dilution; Heparin was stopped -Continue Protonix 40 mg twice daily IV -heart healthy diet Type II diabetes; present on admission; ongoing -A1c of 5.8 on 01/20 -Lantus 10 units at bedtime -Low Humulin correctional Disposition: hopefully discharge by Saturday. Full code GI Prophylaxis: Proton Pump Inhibitor VTE Mechanical Devices: Intermittant Pneumatic CD Resuscitation Status: CPR: Attempt Resuscitation Time spent 35 minutes Attending Statement I interviewed and examined the patient on rounds today. Progressive recovery of pulmonary function. I agree with the assessment and plan as stated above. Dennis Keane DO Jan 29, 2017 16:40 Ian Dodd MD Jan 29, 2017 18:45
--- NOTE | 2017-01-29 18:17 | NUR ---
pain/activity assumed care of patient at 1500. patient denies pain. up in chair until about 1700. yokasta douglas. up with Physical therapy and walked to nurses station. will give report to oncoming rn at 1900.
[2017-01-29] MEDS: Insulin GLARgine 100 Unit/mL Syringe SUBQ SCH (21:50)
[2017-01-30] VITALS (11 sets, daily range): BP systolic 119–147; BP diastolic 65–69; PULSE 72–95; RESP 18–20; O2SAT 92–99
[2017-01-30] MEDS: Ketorolac 15 mg/mL Inj IVPUSH PRN ×3 (05:05→23:49)
[2017-01-30 05:09] LABS: BASOPHILS % (AUTO) 0.4 % (0-3); EOSINOPHILS % (AUTO) 3.3 % (0-5); MONOCYTES % (AUTO) 8.1 % (4-12); Mean Corpuscular Hemoglobin 31.4 pg (27.0-35.0); Mean Corpuscular Volume 93.8 fL (81-100); NEUTROPHILS % (AUTO) 62.9 % (40-74); Platelet Count 217 bil/L (150-400)
[2017-01-30] MEDS: Albuterol-Ipratropium 3 mL Inhalation Solution NEB SCH ×5 (05:25→21:05)
--- NOTE | 2017-01-30 06:16 | NUR ---
oxygen/pain tried weaning pt down to 3L NC once pt falling asleep SpO2 dropping to 90% back up to 4L where pt is at 94-96%. pt needing IV toradol x2 this shift for chest wall pain r/t coughing
[2017-01-30] MEDS: Heparin 5,000 Unit/mL Inj SUBQ SCH ×2 (09:03→16:55)
[2017-01-30] MEDS: Potassium Chloride 20 mEq SR Tablet PO SCH ×2 (09:03→16:51)
[2017-01-30] MEDS: Pantoprazole 4 mg/mL 10 mL Inj IVPUSH SCH ×2 (09:03→16:51)
[2017-01-30] MEDS: Insulin LISPRO 300 Unit/3 mL Inj SUBQ SCH ×4 (09:04→20:27)
--- NOTE | 2017-01-30 13:26 | PCM.PNMED ---
Subjective Date of Service Jan 30, 2017 Subjective Yesterday patient was up and walking with physical therapy. Is doing well weaning down off the O2. No complaints today. Montilla was removed and patient is not yet urinated on his own. Exam Vital Signs Vital Sign - Last Date Time Temp Pulse Resp B/P Pulse Ox O2 Delivery O2 Flow Rate FiO2 01/30/17 11:34 72 18 97 Nasal Cannula 3.00 01/30/17 07:48 36.9 147/69 01/28/17 12:43 60 Intake and Output 01/29/17 01/29/17 01/30/17 Cumulative From/Thru 15:00 23:00 07:00 01/20/17 10:09 - 01/30/17 06:22 Intake Total 660 ml 200 ml 88049 ml Output Total 875 ml 700 ml 81921 ml Balance -215 ml -500 ml 2978 ml Intake Oral 660 ml 200 ml 2078 ml IV Total 27332 ml Tube Feeding 2851 ml Tube Irrigant 3356 ml Output Urine Total 875 ml 700 ml 37920 ml Gastric Drainage Total 1150 ml Other 0 ml # Bowel Movements 1 2 Exam General: Well appearing male, no acute distress with nasal cannula Cardio: Regular rate and rhythm no murmurs rubs or gallops Respiratory: CTA bilaterally, remains coarse Abdomen: Soft, positive bowel sounds, nontender, nondistended Extremities: No edema, sensation intact; pulses intact Psych: Appropriate mood and affect IVs and Medications Medications Reviewed: Medications were reviewed in detail Lab and Diagnostics Result Diagram: 01/30/17 0500 01/30/17 0500 X-Rays, CTs and MRIs PROCEDURE: CT BRAIN WITHOUT CONTRAST ([id number]) IMPRESSION: No acute intracranial abnormality is identified in this patient status post cardiac arrest. Dictated by: Emiliano Palencia M.D. on 01/20/2017 at 11:05 PROCEDURE: X-RAY CHEST ONE VIEW, PORTABLE ([id number]) IMPRESSION: Question of early asymmetric pulmonary edema versus pneumonia right chest greater than left. Dictated by: Emiliano Palencia M.D. on 01/20/2017 at 10:27 PROCEDURE: X-RAY CHEST ONE VIEW, PORTABLE ([id number]) IMPRESSION: Worsening bilateral pleural effusions with bibasilar atelectasis, edema or infiltrates. Stable support lines. Dictated by: Reyes Souza M.D. on 01/26/2017 at 9:36 . 12-lead ECG Sinus rhythm at [address] depressions in leads V3 and V4 and V5. The patient also has a flat T wave in. Left anterior Fascical block. Assessment & Plan 61-year-old male has history of CAD with stent who stopped taking his cardiac medications 1 year ago presents after V. fib arrest with approximate 5 minutes prior to CPR. Acute hypoxic respiratory failure secondary to cardiac arrest; present on admission; resolving -Patient graduated from the vent and is currently on high flow oxygen at 15 L -Patient continues to improve and will wean down oxygen as tolerated -CXR mildly improved today with persistent bilateral effusions and edema -Continue to wean O2. Coronary artery disease, present on admission; ongoing -At this point is unclear if the patient had ischemia versus NSTEMI, and troponin reached 0.9 before trending down -Aspirin suppository daily -No Plavix given due to upper GI bleed and cardiology assessment -repeat cath, possibly -Started on low-dose metoprolol Ventricular fibrillation Cardiac arrest with pulmonary edema; present on admission; resolved -Resuscitated with defibrillation after more than 5 minutes of rest in the sitting position -Noncritical LCx disease; echo appears to show an EF of 35% -Cardiology consultation and appreciate the recommendations -Hypothermia protocol completed -PICC line in place -Continue physical therapy -Patient to undergo cardiac cath in assessment for AICD -Cardiology starting low-dose metoprolol Circulatory (possibly cardiogenic or sepsis with aspiration pneumonia ) shock; resolved - Received fluid resuscitation and norepinephrine; now weaned off - Echocardiogram consistent with acute systolic congestive heart failure - Diuresis with Lasix drip initiated 01/25 and stopped 01/28/17 Probable aspiration pneumonia, present on admission. Initially asymmetric but subsequently bibasilar infiltrates with oxygen deficit. Differential is aspiration pneumonia versus CHF. -White count normalized 01/23/17 -Discontinue Zosyn Acute blood loss anemia; present on admission; stable. Questionable upper GI bleed with positive Hemoccult; but no evidence of significant melena or hematemesis -As patient was warming his hematocrit dropped by nearly 4 points which is quite large for dilution; Heparin was stopped -Continue Protonix 40 mg twice daily IV -heart healthy diet Type II diabetes; present on admission; ongoing -A1c of 5.8 on 01/20 -Lantus 10 units at bedtime -Low Humulin correctional Disposition: No change in patient plan today with the exception of removal of the Montilla and advancing physical therapy. Patient to go for cath tomorrow and hopefully AICD placement on Saturday. If this happens expected discharge is Saturday Full code GI Prophylaxis: Proton Pump Inhibitor VTE Mechanical Devices: Intermittant Pneumatic CD Resuscitation Status: CPR: Attempt Resuscitation Attending Statement The patient was seen and examined together with on January 30 and I agree with the history, exam findings, and plan as outlined in the note above. I did participate in all aspects of the services provided today, including documentation and the plan of care. The patient is doing well after his cardiac arrest. He is scheduled to have an coronary angiogram tomorrow, and then placement of an implantable defibrillator on Saturday. Dennis Keane DO Jan 30, 2017 13:26 Franck Wood MD Jan 31, 2017 13:26
--- NOTE | 2017-01-30 17:36 | PROG NOTE ---
[address] [address] PROGRESS NOTE PATIENT: ERNIE HARPER : 1955 MR#: [id number] ADMIT: 01/20/2017 JOB ID: [id number] DATE: 01/30/2017 CHIEF COMPLAINT: The patient came with a primary VF arrest. He does have a mild cardiomyopathy and has findings of coronary disease. Troponins trended to 0, therefore, the feeling is this was a primary VF arrest. However, he does have coronary disease. Fortunately, he does not have chest pain or chest pressure. There is a possibility that spasm about the stenosis of the circumflex artery could cause ischemia that could lead to ICD firings. PHYSICAL EXAMINATION: Blood pressure 119/67, heart rate 80, sats are 95% on 1.5 L. General: He is in no acute distress. Speaking in full sentences without apparent shortness of breath. MEDICATIONS: Include albuterol nebs, Toradol which is q.6 h., insulin, metoprolol 12.5 b.i.d., subcu heparin, aspirin 81 mg a day, Pantoprazole, insulin glargine. LABORATORIES: Today, show that his white count is 5.7, H and H 10.1 and 30.2, platelets are with normal limits. Chemistry shows sodium 139, potassium 4.0, bicarb 102, His echocardiogram after the initial arrest showed an ejection fraction around 35% to 40% with global hypokinesis. Also with some more focal hypokinesis. As noted, on laboratories troponins trended to 0 which would not be typical for a myocardial infarction, therefore, the elevated troponins were likely related to CPR shocks and also a possible component of spasm of the coronary arteries. IMPRESSION: The patient is doing better. He is now on beta-coreen as well. He is on a statin. He is also getting Toradol as needed which we should be aware that I am going to put him on Plavix. PLAN: Put him on Plavix loading dose tonight, continue with aspirin. We will take him to the cath laboratory. As he has a history of refractory spasm (admission in 2013 with chest pain related to this) will consider stenting of the vessel. As this was a primary VF arrest, will have discussed possible defibrillator and this is tentatively planned for this Saturday. MTDD
--- NOTE | 2017-01-30 18:20 | NUR ---
weaning off Oxygen patient tolerating weaning off O2 today. started at 4L/min at rest. now at 1L/min and maintaining O2sat in mid 90's. patient ambulated gomez twice today, last time walked 400ft on 3L/min NC and was able to maintain O2 sat 91-94%. encouraging DB&C and IS use. continue to increase activity and pulmonary toileting.
[2017-01-30] MEDS: Insulin GLARgine 100 Unit/mL Syringe SUBQ SCH (21:33)
[2017-01-31] VITALS (19 sets, daily range): BP systolic 128–160; BP diastolic 58–92; PULSE 50–96; RESP 17–22; O2SAT 91–98
[2017-01-31] MEDS: Heparin 5,000 Unit/mL Inj SUBQ SCH ×2 (00:30→08:30)
[2017-01-31] MEDS: Albuterol-Ipratropium 3 mL Inhalation Solution NEB SCH ×4 (00:32→11:47)
[2017-01-31 03:16] LABS: BASOPHILS % (AUTO) 0.3 % (0-3); EOSINOPHILS % (AUTO) 3.2 % (0-5); MONOCYTES % (AUTO) 8.1 % (4-12); Mean Corpuscular Hemoglobin 31.3 pg (27.0-35.0); Mean Corpuscular Volume 92.7 fL (81-100); NEUTROPHILS % (AUTO) 67.9 % (40-74); Platelet Count 229 bil/L (150-400)
[2017-01-31 03:56] LABS: Magnesium 2.1 mg/dL (1.6-2.6)
--- NOTE | 2017-01-31 04:10 | NUR ---
O2 Pt was on 1L NC @ start of shift, weaned off to RA. However, pt was de-sating while @ rest, 2L NC applied to maintain sats in low 90's. VSS, no pain on assessment, but requested Toradol later in the evening. Pt NPO @ midnight. No other issues noted @ this time.
[2017-01-31] MEDS: Potassium Chloride 20 mEq SR Tablet PO SCH ×2 (07:30→18:12)
[2017-01-31] MEDS: Insulin LISPRO 300 Unit/3 mL Inj SUBQ SCH ×4 (08:00→21:54)
[2017-01-31] MEDS ORDERED: Heparin 10,000 Unit/1,000 mL NS Premix IV ONE (10:08)
[2017-01-31] MEDS ORDERED: 0.9% Sodium Chloride 1,000 ML ONE (10:08)
[2017-01-31] MEDS ORDERED: Heparin 1,000 Unit/mL 10 mL Inj ONE ×2 (10:08→11:55)
[2017-01-31] MEDS ORDERED: Nitroglycerin 50,000 mcg/250 mL D5W Premix IV ONE (10:12)
[2017-01-31] MEDS: Pantoprazole 4 mg/mL 10 mL Inj IVPUSH SCH ×2 (10:52→18:12)
[2017-01-31] MEDS ORDERED: fentaNYL-PF 50 mCg/mL 2 mL Inj ONE (10:58)
[2017-01-31] MEDS ORDERED: Lidocaine 1%-Epi 1:100,000 20 mL Inj ONE (12:02)
[2017-01-31] MEDS ORDERED: Albuterol-Ipratropium 3 mL Inhalation Solution NEB PRN ×2 (12:15→16:55)
--- NOTE | 2017-01-31 12:44 | NUR ---
Pt to [facility] from labor relations officer at 12:15. Pt denies discomfort, VSS, small amount of track Dr. Slade lopez aware and has seen. Continue to monitor.
[2017-01-31] MEDS ORDERED: Ondansetron 2 mg/mL 2 mL Inj IVPUSH PRN (13:35)
[2017-01-31] MEDS ORDERED: 0.9% Sodium Chloride 600 ML IV ONE (13:35)
[2017-01-31] MEDS ORDERED: 0.9% Sodium Chloride 250 ML BOLUS IV PRN (13:35)
[2017-01-31] MEDS ORDERED: Sodium Chloride LOK Flush 10 mL Syringe IVFLUSH PRN (13:35)
[2017-01-31] MEDS ORDERED: Atropine 1 mg/10 mL (Code) Syringe IVPUSH PRN (13:35)
--- NOTE | 2017-01-31 14:50 | PCM.PNMED ---
Subjective Date of Service Jan 31, 2017 Subjective Patient doing well. Going to [employer] Utility Work[employer] Today. No Complaints. Doing Well with PT. Exam Vital Signs Vital Sign - Last Date Time Temp Pulse Resp B/P Pulse Ox O2 Delivery O2 Flow Rate FiO2 01/31/17 13:55 81 19 160/92 95 Nasal Cannula 2.00 01/31/17 00:12 37.0 01/28/17 12:43 60 Intake and Output 01/30/17 01/30/17 01/31/17 Cumulative From/Thru 15:00 23:00 07:00 01/20/17 10:09 - 01/31/17 07:00 Intake Total 760 ml 1180 ml 52272 ml Output Total 1075 ml 550 ml 76033 ml Balance -315 ml 630 ml 3293 ml Intake Oral 760 ml 200 ml 3038 ml IV Total 980 ml 44622 ml Tube Feeding 2851 ml Tube Irrigant 3356 ml Output Urine Total 1075 ml 550 ml 15252 ml Gastric Drainage Total 1150 ml Other 0 ml # Voids 1 1 # Bowel Movements 2 Exam General: Awake and alert in no acute distress. Cardio: Regular rate and rhythm no murmurs rubs or gallops Respiratory: CTA bilaterally, remains coarse Abdomen: Soft, positive bowel sounds, nontender, nondistended Extremities: No edema, sensation intact; pulses intact Psych: Appropriate mood and affect IVs and Medications Medications Reviewed: Medications were reviewed in detail Lab and Diagnostics Result Diagram: 01/31/17 0310 01/31/17 0310 X-Rays, CTs and MRIs PROCEDURE: CT BRAIN WITHOUT CONTRAST ([id number]) IMPRESSION: No acute intracranial abnormality is identified in this patient status post cardiac arrest. Dictated by: Emiliano Palencia M.D. on 01/20/2017 at 11:05 PROCEDURE: X-RAY CHEST ONE VIEW, PORTABLE ([id number]) IMPRESSION: Question of early asymmetric pulmonary edema versus pneumonia right chest greater than left. Dictated by: Emiliano Palencia M.D. on 01/20/2017 at 10:27 PROCEDURE: X-RAY CHEST ONE VIEW, PORTABLE ([id number]) IMPRESSION: Worsening bilateral pleural effusions with bibasilar atelectasis, edema or infiltrates. Stable support lines. Dictated by: Reyes Souza M.D. on 01/26/2017 at 9:36 . 12-lead ECG Sinus rhythm at [address] depressions in leads V3 and V4 and V5. The patient also has a flat T wave in. Left anterior Fascical block. Assessment & Plan 61-year-old male has history of CAD with stent who stopped taking his cardiac medications 1 year ago presents after V. fib arrest with approximate 5 minutes prior to CPR. Acute hypoxic respiratory failure secondary to cardiac arrest; present on admission; resolving -Patient graduated from the vent and is currently on high flow oxygen at 15 L -Patient continues to improve and will wean down oxygen as tolerated -CXR mildly improved today with persistent bilateral effusions and edema -Continue to wean O2. Currently 2 L nasal cannula. Coronary artery disease, present on admission; ongoing -At this point is unclear if the patient had ischemia versus NSTEMI, and troponin reached 0.9 before trending down -Aspirin suppository daily -No Plavix given due to upper GI bleed and cardiology assessment -Started on low-dose metoprolol -Loaded with Plavix yesterday -[employer] today Ventricular fibrillation Cardiac arrest with pulmonary edema; present on admission; resolved -Resuscitated with defibrillation after more than 5 minutes of rest in the sitting position -Noncritical LCx disease; echo appears to show an EF of 35% -Cardiology consultation and appreciate the recommendations -Hypothermia protocol completed -PICC line in place -Continue physical therapy -Patient to undergo cardiac cath in assessment for AICD -Cardiology starting low-dose metoprolol Circulatory (possibly cardiogenic or sepsis with aspiration pneumonia ) shock; resolved - Received fluid resuscitation and norepinephrine; now weaned off - Echocardiogram consistent with acute systolic congestive heart failure - Diuresis with Lasix drip initiated 01/25 and stopped 01/28/17 Probable aspiration pneumonia, present on admission. Initially asymmetric but subsequently bibasilar infiltrates with oxygen deficit. Differential is aspiration pneumonia versus CHF. -White count normalized 01/23/17 -Discontinue Zosyn after 9 day course Acute blood loss anemia; present on admission; stable. Questionable upper GI bleed with positive Hemoccult; but no evidence of significant melena or hematemesis -As patient was warming his hematocrit dropped by nearly 4 points which is quite large for dilution; Heparin was stopped -Continue Protonix 40 mg twice daily IV -heart healthy diet Type II diabetes; present on admission; ongoing -A1c of 5.8 on 01/20 -Lantus 10 units at bedtime -Low Humulin correctional Disposition: Patient underwent cardiac cath today. Likely home in 2 days. GI Prophylaxis: Proton Pump Inhibitor VTE Mechanical Devices: Intermittant Pneumatic CD Resuscitation Status: CPR: Attempt Resuscitation Time spent 35 minutes Attending Statement I interviewed and examined the patient on rounds. Good progress and pulmonary recovery, largely atelectasis due to CPR. I agree with the assessment and plan as stated above. Dennis Keane DO Jan 31, 2017 14:50 Ian Dodd MD Feb 01, 2017 13:09
--- NOTE | 2017-01-31 14:52 | NUR ---
Report called to Kristie in [facility]. Pt stable, sinus rhythm, no hematoma present. Sand bag off site, no oozing present at cath site. NS continues @ 100cc/hr. Pt denies discomfort. Pt transported to 2007, handoff done at bedside.
--- NOTE | 2017-01-31 16:40 | NUR ---
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 Capacity for self-care and discharge needs reviewed; pt is now ambulating 200+ feet with PT with recommendations for outpatient PT. No concerns about self-care identified. Pt is I at baseline. RENEWALS SPECIALIST met with the patient and his spouse. They both agree with the plan to d/c home when the patient is medically stable. They identify no discharge concerns or needs. A: Pt who is I at baseline and lives with his spouse. P: Anticipate pt to discharge home via POV once medically stable; RENEWALS SPECIALIST to continue to follow should needs arise. JAIME Law
[2017-01-31] MEDS: Insulin GLARgine 100 Unit/mL Syringe SUBQ SCH (17:05)
--- NOTE | 2017-01-31 19:21 | CS94 ---
[address] [address] DIAGNOSTIC CARDIAC CATHETERIZATION PATIENT: ERNIE HARPER : 1955 MR#: [id number] ADMIT: 01/20/2017 JOB ID: [id number] SERVICE DATE: 01/31/2017 PROCEDURE PERFORMED: 1. Left-sided coronary angiography. 2. Intravascular ultrasound of the circumflex artery. 3. Percutaneous intervention with stent placement to the circumflex artery. INDICATIONS: This is a 61-year-old man with known coronary disease with history now of refractory spasm of the circumflex artery in this case contributing to a primary VF arrest. Based upon this, he presents for further assessment by coronary angiography. DESCRIPTION OF PROCEDURE: Informed consent was obtained. The patient was brought to catheterization laboratory. Bilateral groins were prepped and draped in usual sterile fashion. The right femoral artery was anesthetized with lidocaine and using modified Seldinger technique and a micropuncture kit, access was obtained and a 6-Belgian sheath was advanced. Next, a 6-Belgian CLS 3.5 guide was advanced over a wire and used to cannulate the left coronary artery and angiographic views obtained. Heparin was given for anticoagulation. A Hyglos wire was advanced across the area of stenosis in the circumflex artery. IVUS was advanced into the distal vessel. The distal vessel appeared in the range of 2.6 to about 2.8. Proximal vessel was closer to 3 mm. In the area of stenosis, the vessel was no greater than 2 mm in diameter. Based upon this, also the evidence of plaque burden extending both in the stenosis and into the areas proximal and distal, plans were made for stenting. The indication for stenting in this case is refractory spasm leading to a life-threatening event in this patient. Heparin was given for anticoagulation. The initial dilation was performed with a 2.5 mm balloon, ultimately, after IVUS assessment and plans were made for a 2.75 mm stent. Therefore a 2.75 x 15 mm Xience stent was carefully placed. This was deployed at nominal pressures and then ultimately post dilated with a noncompliant 2.75 mm balloon to high atmospheres throughout the stented area. After stenting, this gave an excellent angiographic result with no significant residual stenosis, no evidence of dissection, and brisk flow in the artery. There were no compromises of any associated branches as well. The case was ended. The angiographic view of the right femoral access site was reviewed prior to achieving hemostasis with StarClose device. There were no complications. FINDINGS: CORONARIES: 1. Left main. This has no evidence obstructive disease. 2. Circumflex artery. This vessel has evidence of an eccentric stenosis estimated in the range of 50% to 60%. 3. Left anterior descending has no obstructive disease. As noted, the circumflex artery was study with IVUS and there is diffuse plaquing in the area of interest as well as some plaquing present in the vessel distal to the area of stenosis and the area of proximal stenosis. As this was the site for recurrent refractory vasospasms leading to a life-threatening event, plans were made for stenting. As noted, this was predilated with a 2.5 mm balloon, assessed with IVUS, and ultimately treated with a 2.75 mm stent which was then post dilated to high atmospheres with an excellent angiographic result. IMPRESSION: Successful intravascular ultrasound of the circumflex artery with a saphenous circumflex artery, predilation with a balloon followed by stenting with a drug-eluting stent.
--- NOTE | 2017-01-31 19:57 | NUR ---
Groin Site Denies chest pain but does endorse rib pain from compressions. Tele SR/tach 90s with PACs, tele reports "afib like" rhythm when patient's HR increases above 100 bpm. No reports of SOB/dizziness. SPO2 on 1L NC mid to high 90s. Patient reports difficulty coughing due to rib pain. No reports of n/v/d/c or abdominal pain, does endorse bloating. Voiding pale deirdre urine without complication. Right groin site star close C/D/I upon arrival back to unit post computer lab assistant in afternoon. Patient off bedrest at 1715, up to chair, groin site checked with very minimal serous-sang drainage. Rechecked at 1830, slightly more -- no oozing outside of bandage but gauze is more saturated. Patient now back in bed, reviewed with NOC RN. Area is soft and no s/sx of hematoma present.
[2017-01-31] MEDS: HYDROcodone-APAP 5-325 mg Tablet PO PRN (21:50)
[2017-02-01] VITALS (18 sets, daily range): BP systolic 109–136; BP diastolic 49–75; PULSE 78–106; RESP 15–20; O2SAT 88–98
[2017-02-01] MEDS ORDERED: Vancomycin Inj 1,000 MG in IV Premix 1 EACH IV ONE ×2 (06:00→23:20)
[2017-02-01] MEDS ORDERED: 0.9% Sodium Chloride 1,000 ML IV PRN (06:00)
[2017-02-01 06:15] LABS: INR 0.98 ratio
[2017-02-01 06:18] LABS: BASOPHILS % (AUTO) 0.4 % (0-3); EOSINOPHILS % (AUTO) 3.3 % (0-5); MONOCYTES % (AUTO) 6.6 % (4-12); Mean Corpuscular Volume 95.2 fL (81-100); NEUTROPHILS % (AUTO) 78.9 % (40-74); Platelet Count 240 bil/L (150-400)
--- NOTE | 2017-02-01 06:46 | NUR ---
Groin Site/NPO Right groin site soft, non-tender. No change to sero-sanguineous drainage on dressing. Patient up to ambulate in the gomez before bed with no issues. NPO after midnight for procedure.
[2017-02-01] MEDS: Pantoprazole 4 mg/mL 10 mL Inj IVPUSH SCH ×2 (07:56→18:08)
[2017-02-01] MEDS: Potassium Chloride 20 mEq SR Tablet PO SCH ×2 (07:57→18:08)
[2017-02-01] MEDS: Insulin LISPRO 300 Unit/3 mL Inj SUBQ SCH ×4 (08:00→22:00)
--- NOTE | 2017-02-01 08:08 | NUR ---
NUTRITION FOLLOW-UP: Assess: 61 YO M admitted to CCU following V-fib arrest. He has completed hypothermia protocol and was successfully extubated. Acute hypoxic respiratory failure improved. Pt. underwent cardiac cath yesterday in assessment for AICD. Diet advanced to heart healthy consistent carb, with PO intake consistently 100% trays. PMHX: CAD, tobacco use, HTN, dyslipidemia, NSTEMI. DIET: Heart Healthy, Consistent Carb. PO intake 100% trays. LABS: Cr 0.64, Glu 138. MEDICATIONS: Reviewed. Insulin. GI: BM x 1 (01/29). SKIN: No issues noted. Thiago 17. NUTRITION SUPPORT DISCONTINUED AT EXTUBATION: Glucerna 1.5 @ 72 ml/hr. ANTHROPOMETRICS: Wt: 100.1 kg, BMI 28.0 kg/m2, admit wt: 106.8 kg, IBW: 86.4 kg. ESTIMATED NEEDS: BMI Calories: 0185-2280 kcal/day (20-22 kcal/kg BW) Protein: 104-130 g/day (1.2-1.5 g/kg IBW) Fluids: 2705 ml/day (25ml/kg) NUTRITION DIAGNOSIS: 1) Inadequate oral intake related to decreased ability to consume sufficient energy as evidenced by NPO/Vent status - RESOLVED. INTERVENTION: 1) Continue current diet as ordered. MONITOR/EVALUATE: Diet tolerance, PO intake, wt, POC, GI, labs, nutrition status. Follow per moderate nutrition risk guidelines.
[2017-02-01] MEDS ORDERED: Bupivacaine-MPF 0.5% 30 mL Inj ONE (10:05)
[2017-02-01] MEDS ORDERED: fentaNYL-PF 50 mCg/mL 2 mL Inj ONE ×2 (10:05→10:28)
[2017-02-01] MEDS ORDERED: Vancomycin 1,000 mg Inj ONE (10:05)
[2017-02-01] MEDS ORDERED: 0.9% Sodium Chloride 250 ML ONE (10:06)
[2017-02-01] MEDS ORDERED: Methohexital 10 mg/mL 50 mL Inj ONE (10:09)
[2017-02-01] MEDS ORDERED: Heparin 10,000 Unit/1,000 mL NS Premix IV ONE (10:10)
[2017-02-01] MEDS: 0.9% Sodium Chloride 1,000 ML IV SCH ×2 (11:16→21:16)
--- NOTE | 2017-02-01 11:35 | PROG NOTE ---
[address] [address] PROGRESS NOTE PATIENT: ERNIE HARPER : 1955 MR#: [id number] ADMIT: 01/20/2017 JOB ID: [id number] DATE: 02/01/2017 ELECTROPHYSIOLOGY PROGRESS NOTE: IDENTIFICATION: The patient is a pleasant 61-year-old man with known coronary artery disease, consequent btkznrbq-yo-vowohz ischemic cardiomyopathy with ejection fraction on this admission of 35%-40%, admitted to the hospital with an qow-zp-kbvspebz VF arrest. He was resuscitated, cooled, ventilated and treated for pneumonia. Ultimately he has recovered well from a neurologic perspective and is nearing discharge from the hospital. Early angiography revealed coronary vasospasms with a left circumflex artery stenosis. His VF arrest was not felt to be due to a myocardial infarction. His troponins did trend up slightly but ultimately returned to negative. No initial intervention was performed. He was brought back to the lab yesterday and IVUS of the lesion showed it to be significant but again his arrest was not in the setting of myocardial infarction. He underwent stenting to the left circumflex and I have discussed with him and his family a secondary prevention ICD implant. He is currently sore from CPR but otherwise denies any other symptomology. He has no recollection of the events of the preceding two weeks. IMPRESSION/RECOMMENDATION: The patient is a pleasant 59-year-old man with coronary artery disease, severe ischemic cardiomyopathy, ejection fraction 35%-40% admitted to the hospital with VF arrest without clear reversible etiology. This did not occur in the setting of myocardial infarction. As such, I recommended secondary prevention single-chamber ICD implantation. I have described the implant to him and his and sister in detail including risks and benefits. Ultimately, he wishes to proceed. PLAN: Single-chamber ICD implantation with defibrillation threshold testing. Thank you for much for allowing me to participate in the care of this patient. Please call with any questions. I spent approximately 1 hour of coordinating therapy and reviewing his chart. Greater than 50% of the time was spent in counseling.
--- NOTE | 2017-02-01 12:00 | OP ---
[address] [address] OPERATIVE REPORT PATIENT: ERNIE HARPER : 1955 MR#: [id number] ADMIT: 01/20/2017 JOB ID: [id number] DATE OF SURGERY: 02/01/2017 PREOPERATIVE DIAGNOSIS(ES): Ventricular fibrillation arrest. POSTOPERATIVE DIAGNOSIS(ES): Ventricular fibrillation arrest. PROCEDURES PERFORMED: 1. Secondary prevention single-chamber implantable cardioverter defibrillator implantation. 2. Left upper extremity venogram. 3. Defibrillation threshold testing with device-induced ventricular fibrillation and induction. 4. Fluoroscopy. SURGEON: Matthew Quinn MD, electrophysiology attending. CORE MACHINE TENDER: Kobe Krueger. IMPLANTED DEVICES: 1. [employer] pulse generator model ML1545-66H, serial # [id number]. 2. RV lead [employer] 7122Q, 65 cm, serial #[id number]. ANESTHESIA: Bolus dosing of Versed and fentanyl were utilized for appropriate level of sedation. Brevital was utilized for defibrillation threshold testing. INDICATION: The patient is a pleasant 61-year-old man with coronary artery disease, moderate to severe ischemic cardiomyopathy, ejection fraction 35% to 40%. Admitted to the hospital with VF arrest not in the setting of myocardial infarction. After discussion of risks and benefits of secondary prevention ICD implantation, he opted to proceed. PROCEDURAL DESCRIPTION: Following informed signed consent, the patient was taken to the EP laboratory in a fasting, nonsedated stated where he was prepped and draped in the usual sterile fashion. The left infraclavicular region was infiltrated with 40 cc of a 50/50 mixture of bupivacaine and lidocaine. Once adequate anesthesia had been achieved, a 3 cm transverse incision was performed 2 cm below the left clavicle. Dissection was carried down to the pectoralis fascia. A pocket was then fashioned using a combination of electrocautery and blunt dissection. Once adequate hemostasis had been achieved, attempts to access the left axillary vein with micropuncture needle were unsuccessful. A left upper extremity venogram was performed. Under guidance, the vessel was cannulated with a micropuncture needle to deploy a 0.041, 3 mm J guidewire. Over this, a 7-Irish tear-away sheath was advanced. Once the guidewire was removed, an active fixation ICD lead was advanced to the RV outflow tract and ultimately the RV apex. The lead was affixed in position using associated active fixation screw. It was connected to the external analyzer and demonstrated appropriately sensed R waves, impedance and capture threshold. The lead was checked to 10 V, and there was no evidence of diaphragmatic stimulation. Once the position and redundancy of the lead had been confirmed in multiple fluoroscopic views, the lead was anchored to the prepectoralis fascia using associated anchoring sleeve and 2-0 Ethibond sutures. The pocket was then copiously irrigated with antibiotic solution. The lead was connected to a generator. This was placed in the pocket. It was affixed to the floor of the pocket using 1-0 Ti-Cron suture. The incision was then closed with running layers of absorbable suture. The wound was dressed with skin adhesive and a small dressing. At the end of the procedure, the needle, sponge and instrument counts were all correct. The patient was prepared for defibrillation threshold testing. Brevital was given. Once adequate sedation had been achieved, the DC Fibber protocol and the [employer] principal programmer were used to induce ventricular fibrillation at a cycle length of 145 msec. The device sensed appropriately, converting the patient to a sinus rhythm with a 25 joule shock. Charge time was 5.8 seconds. Impedance was 66 ohms. COMPLICATIONS: None. ESTIMATED BLOOD LOSS: Negligible. DEVICE MEASURED DATA: 11.6 mV, 530 ohms, 0.5 V at 0.5 msec. FINAL PROGRAM PARAMETERS: 1. VVI 40 beats per minute. 2. VF zone at 188 beats per minute with ATP during charge followed by shocks. 3. VT-2 zone at 171 beats per minute with ATP followed by shocks. 4. VT monitor zone at 150 beats per minute. IMPRESSION: Successful single-chamber secondary prevention implantable cardioverter defibrillator implantation with at least a 10 joule safety margin. PLAN: 1. Stat portable chest x-ray. 2. PA and lateral chest x-ray in the morning. 3. Device interrogation . 4. IV vancomycin through tomorrow. 5. Doxycycline 100 mg p.o. daily x7 days. 6. Wound check in one week. ATTENDING STATEMENT: Matthew Quinn MD, electrophysiology attending, was present for and has supervised/performed all aspects of this procedure.
--- NOTE | 2017-02-01 12:15 | NUR ---
Received from [facility] in stable condition, s/p AICD implantation. He is alert and oriented, family to bedside.Right groin saturated dressing from yesterday removed from right femoral groin site. Area is soft, no hematoma or bleeding/oozing noted. Area cleaned with chloraprep and bandaid applied. Pt easily drifts off to sleep.
--- NOTE | 2017-02-01 13:17 | DRSVH ---
PROCEDURE: X-RAY CHEST ONE VIEW, PORTABLE ([id number]) INDICATIONS: For new leads placed TECHNIQUE: One view of the chest was acquired. COMPARISON: [facility], CR, XR CHEST 1VW (PORTABLE), 01/28/2017, 4:55. FINDINGS: Surgical changes and devices: Left-sided cardiac pacer. Lungs and pleura: Moderate right-sided and trace left-sided pleural effusion 3 right basilar atelecta sis or less likely infiltrates. Mediastinum: Mediastinal contours appear normal. Heart size is normal. Bones and chest wall: No suspicious bony lesions. Overlying soft tissues appear unremarkable. IMPRESSION: Stable moderate right pleural effusion with right basilar atelectasis or infiltrates. Dictated by: Reyes Souza M.D. on 02/01/2017 at 13:15 Approved by: Reyes Souza M.D. on 02/01/2017 at 13:16
--- NOTE | 2017-02-01 13:55 | NUR ---
Patient tx back to room 2007 in stable condition.Left ICD site dressing dry and intact. Pt is alert and oriented. Awaiting Eliane to come to bedside for handoff.
--- NOTE | 2017-02-01 14:00 | NUR ---
Return from [facility] Patient returned to room 2008 s/p ICD placement. Received report from PEREZ Sheikh. VSS, patient denies pain/discomfort. Dressing is C/D/I. pt is off bed rest, arm precautions reviewed. Patient eating lunch and visiting with family, call light within reach.
--- NOTE | 2017-02-01 14:51 | PCM.PNMED ---
Subjective Date of Service Feb 01, 2017 Subjective Pt did well overnight. No complaints. Doing better with PT. Taken this morning to [facility] for single lead pacer/defib implant that went well. Recall lawanda the was taken to the [facility] yesterday for evaluation and underwent stenting of the LAD due to this being the site of spasm. Dr. June's note is in the chart. Exam Vital Signs Vital Sign - Last Date Time Temp Pulse Resp B/P Pulse Ox O2 Delivery O2 Flow Rate FiO2 02/01/17 13:55 36.6 80 16 109/69 92 Room Air 02/01/17 13:30 3.00 01/28/17 12:43 60 Intake and Output 01/31/17 01/31/17 02/01/17 Cumulative From/Thru 15:00 23:00 07:00 01/20/17 10:09 - 02/01/17 06:49 Intake Total 1020 ml 40 ml 37556 ml Output Total 625 ml 550 ml 55519 ml Balance 395 ml -510 ml 3178 ml Intake Oral 420 ml 0 ml 3458 ml IV Total 600 ml 40 ml 63424 ml Tube Feeding 2851 ml Tube Irrigant 3356 ml Output Urine Total 625 ml 550 ml 28201 ml Gastric Drainage Total 1150 ml Other 0 ml # Voids 1 # Bowel Movements 2 Exam General: Awake and alert in no acute distress. Cardio: Regular rate and rhythm no murmurs rubs or gallops; incision over the left breast Respiratory: CTA bilaterally, remains coarse Abdomen: Soft, positive bowel sounds, nontender, nondistended Extremities: No edema, sensation intact; pulses intact Psych: Appropriate mood and affect IVs and Medications Medications Reviewed: Medications were reviewed in detail Lab and Diagnostics Result Diagram: 02/01/17 0550 02/01/17 0550 X-Rays, CTs and MRIs PROCEDURE: CT BRAIN WITHOUT CONTRAST ([id number]) IMPRESSION: No acute intracranial abnormality is identified in this patient status post cardiac arrest. Dictated by: Emiliano Palencia M.D. on 01/20/2017 at 11:05 PROCEDURE: X-RAY CHEST ONE VIEW, PORTABLE ([id number]) IMPRESSION: Question of early asymmetric pulmonary edema versus pneumonia right chest greater than left. Dictated by: Emiliano Palencia M.D. on 01/20/2017 at 10:27 PROCEDURE: X-RAY CHEST ONE VIEW, PORTABLE ([id number]) IMPRESSION: Worsening bilateral pleural effusions with bibasilar atelectasis, edema or infiltrates. Stable support lines. Dictated by: Reyes Souza M.D. on 01/26/2017 at 9:36 . 12-lead ECG Sinus rhythm at [address] depressions in leads V3 and V4 and V5. The patient also has a flat T wave in. Left anterior Fascical block. Assessment & Plan 61-year-old male has history of CAD with stent who stopped taking his cardiac medications 1 year ago presents after V. fib arrest with approximate 5 minutes prior to CPR. Acute hypoxic respiratory failure secondary to cardiac arrest; present on admission; resolving -Patient graduated from the vent and is currently on high flow oxygen at 15 L -Patient continues to improve and will wean down oxygen as tolerated -CXR mildly improved today with persistent bilateral effusions and edema -Continue to wean O2. Currently 2 L nasal cannula. Coronary artery disease, present on admission; ongoing -At this point is unclear if the patient had ischemia versus NSTEMI, and troponin reached 0.9 before trending down -Aspirin suppository daily -No Plavix given due to upper GI bleed and cardiology assessment -Started on low-dose metoprolol -Loaded with Plavix yesterday -Stented LAD due to spasm - Single lead pacer/defibrillator placed today Ventricular fibrillation Cardiac arrest with pulmonary edema; present on admission; resolved -Resuscitated with defibrillation after more than 5 minutes of rest in the sitting position -Noncritical LCx disease; echo appears to show an EF of 35% -Cardiology consultation and appreciate the recommendations -Hypothermia protocol completed -PICC line in place -Continue physical therapy -Cont low-dose metoprolol -Stented LAD due to spasm -Single lead pacer/defibrillator placed today Circulatory (possibly cardiogenic or sepsis with aspiration pneumonia ) shock; resolved - Received fluid resuscitation and norepinephrine; now weaned off - Echocardiogram consistent with acute systolic congestive heart failure - Diuresis with Lasix drip initiated 01/25 and stopped 01/28/17 Probable aspiration pneumonia, present on admission. Initially asymmetric but subsequently bibasilar infiltrates with oxygen deficit. Differential is aspiration pneumonia versus CHF. -White count normalized 01/23/17 -Discontinue Zosyn after 9 day course Acute blood loss anemia; present on admission; stable. Questionable upper GI bleed with positive Hemoccult; but no evidence of significant melena or hematemesis -As patient was warming his hematocrit dropped by nearly 4 points which is quite large for dilution; Heparin was stopped -Continue Protonix 40 mg twice daily IV -heart healthy diet Type II diabetes; present on admission; ongoing -A1c of 5.8 on 01/20 -Lantus 10 units at bedtime -Low Humulin correctional Disposition: Discharge tomorrow GI Prophylaxis: Proton Pump Inhibitor VTE Mechanical Devices: Intermittant Pneumatic CD Resuscitation Status: CPR: Attempt Resuscitation Attending Statement The patient was seen and examined together with on February 01 and I agree with the history, exam findings, and plan as outlined in the note above. I did participate in all aspects of the services provided today, including documentation and the plan of care. The patient is doing well after ICD implantation and if asymptomatic overnight we will discharge home tomorrow. Dennis Keane DO Feb 01, 2017 14:51 Franck Wood MD Feb 02, 2017 15:48
[2017-02-01] MEDS: Insulin GLARgine 100 Unit/mL Syringe SUBQ SCH (22:14)
[2017-02-02] MEDS: HYDROcodone-APAP 5-325 mg Tablet PO PRN (01:16)
[2017-02-02 04:16] VITALS: BP 169/77; PULSE 87; RESP 20; O2SAT 91
[2017-02-02 05:57] VITALS: PULSE 87
--- NOTE | 2017-02-02 07:11 | NUR ---
Incision/Groin Site Patient's ICD insertion site dressing clean/dry/intact. Denies pain. Arm sling in place and patient observing appropriate precautions. Right groin site soft, non-tender, no bruising or drainage noted.
[2017-02-02] MEDS: 0.9% Sodium Chloride 1,000 ML IV SCH (07:16)
[2017-02-02 08:41] VITALS: BP 145/81; PULSE 85; RESP 16; O2SAT 93
[2017-02-02] MEDS: Potassium Chloride 20 mEq SR Tablet PO SCH (08:49)
[2017-02-02] MEDS: Pantoprazole 4 mg/mL 10 mL Inj IVPUSH SCH (08:49)
[2017-02-02] MEDS: Insulin LISPRO 300 Unit/3 mL Inj SUBQ SCH (08:50)
--- NOTE | 2017-02-02 08:50 | DRSVH ---
PROCEDURE: X-RAY CHEST, TWO VIEWS ([id number]) INDICATIONS: For new lead placement TECHNIQUE: 2 views of the chest were acquired. COMPARISON: [facility], CR, XR CHEST 1VW (PORTABLE), 02/01/2017, 11:43. [facility], CR, XR CHEST 1VW (PORTABLE), 01/28/2017, 4:55. FINDINGS: Surgical changes and devices: Cardiac pacemaking device with single chamber lead in normal position.. Lungs and pleura: No change in pleural effusions or pneumothorax. Lungs are unchanged, with a right lung base pneumonia pattern, previously present. Slight stranding also seen at the retrocardiac lef t lower lobe.. Mediastinum: Mediastinal contours are normal. Heart size is normal. Bones and chest wall: No suspicious bony abnormalities. Soft tissues appear unremarkable. IMPRESSION: Stable appearance of the chest, as discussed above-reportedly "new lead placement" I has been performed and no pneumothorax is seen. Dictated by: Conor Philip M.D. on 02/02/2017 at 8:47 Approved by: Conor Philip M.D. on 02/02/2017 at 8:49
[2017-02-02 09:18] VITALS: PULSE 10
--- NOTE | 2017-02-02 10:45 | PCM.DIMED ---
Discharge Instructions Date of Service Feb 02, 2017 Dates of Hospitalization Jan 20, 2017 at 11:10 Discharge Diagnosis Discharge Diagnosis Acute hypoxic respiratory failure secondary to cardiac arrest, resolved. Coronary artery disease, stable. Ventricular fibrillation Cardiac arrest, resolved. Cardiogenic shock, resolved. Aspiration pneumonia, resolved. Acute blood loss anemia, resolved. Prediabetes, stable. HbA1c was 5.8 in the hospital. Diet Discharge Diet: Heart Healthy, Diabetic Activity Discharge Activity: Limited until seen by PCP Patient Instructions Patient Instructions Dr. Quinn on February 10 as scheduled. I will remains in sling for 1 month as noted. Primary care physician within one week. Follow-up Provider: Maurice Ambriz MD Follow-up with PCP in: 1 week Franck Wood MD Feb 02, 2017 10:45
[2017-02-02] MEDS ORDERED: METO25TA6 PO (10:49)
[2017-02-02] MEDS ORDERED: DOXY100T2 PO (10:49)
[2017-02-02] MEDS ORDERED: HYDR-4003 PO (10:49)
[2017-02-02] MEDS ORDERED: NITR0.4T SL (10:49)
[2017-02-02] MEDS ORDERED: ATOR20TA65 PO (10:49)
[2017-02-02] MEDS ORDERED: Aspirin-Expunged Drug, Do Not Renew! PO (10:49)
[2017-02-02] MEDS ORDERED: CLOP75TA28 PO (10:49)
[2017-02-02] MEDS ORDERED: ISOS20TA7 PO (10:49)
[2017-02-02 11:09] VITALS: PULSE 85
--- NOTE | 2017-02-02 11:47 | NUR ---
Discharge Patient A&Ox3, VSS, denies pain/discomfort. R groin site soft, non tender no signs of bleeding or bruising. ICD site well approximated, pink, no signs of bleeding noted. Patient L arm in sling and precautions/limitations reviewed again at time of discharge. Follow up instructions and medication teaching printed and reviewed verbally with patient. IV DC'd intact. Patient left unit via wc with all personal belongings, accompanied by his and transported home via private vehicle.
--- NOTE | 2017-02-02 15:38 | PCM.DC.MED ---
Discharge Summary Date of Service Feb 02, 2017 Dates of Hospitalization Date of Hospital Admission Jan 20, 2017 at 11:10 Date of Discharge: Feb 02, 2017 Providers: Admitting Physician: Franck Alvarez MD Primary Care Physician: Maurice Ambriz MD Attending Physician: Franck Alvarez MD Diagnosis at Time of Discharge Diagnosis at Time of Discharge Acute hypoxic respiratory failure secondary to cardiac arrest, resolved. Coronary artery disease, stable. Probable chronic systolic heart failure, POA and stable. Ventricular fibrillation Cardiac arrest, resolved. Cardiogenic shock, resolved. Aspiration pneumonia, resolved. Acute blood loss anemia, resolved. Prediabetes, stable. HbA1c was 5.8 in the hospital. Consultations Cardiology and pulmonary critical care Procedures XRay, CTs & MRIs PROCEDURE: CT BRAIN WITHOUT CONTRAST ([id number]) IMPRESSION: No acute intracranial abnormality is identified in this patient status post cardiac arrest. Dictated by: Emiliano Palencia M.D. on 01/20/2017 at 11:05 PROCEDURE: X-RAY CHEST ONE VIEW, PORTABLE ([id number]) IMPRESSION: Question of early asymmetric pulmonary edema versus pneumonia right chest greater than left. Dictated by: Emiliano Palencia M.D. on 01/20/2017 at 10:27 PROCEDURE: X-RAY CHEST ONE VIEW, PORTABLE ([id number]) IMPRESSION: Worsening bilateral pleural effusions with bibasilar atelectasis, edema or infiltrates. Stable support lines. Dictated by: Reyes Souza M.D. on 01/26/2017 at 9:36 . ECG 12 Lead Sinus rhythm at [address] depressions in leads V3 and V4 and V5. The patient also has a flat T wave in. Left anterior Fascical block. Cardiac Echo Impression Echocardiogram Report Name: ERNIE HARPER Da te: 01/20/2017 Height: 74 in Hospital Exam Location: [facility] Weight: 235 lb Gender: Male BSA: 2.3 m2 : 1955 Age: 61 yrs BP: 188/104 mmHg Reason For Study: Cardiac Arrest Ordering Physician: You Hodge Performed By: Daxa Allen Referring Physician: YOU HODGE Interpretation Summary The study quality was technically difficult. The ejection fraction is estimated to be 35-40%. There is moderate global hypokinesis of the left ventricle. There is inferior wall severe hypokinesis. Wall motion abnormalities are new. Compared to the prior exam, left ventricular function is significantly decreased. The right ventricle is grossly normal size. Right ventricular systolic function is mild to moderately reduced (New). There is trace tricuspid regurgitation. Right ventricular systolic pressure is estimated to be 17.2 mmHg plus the clinically estimated CVP which cannot be estimated on this exam. Invasive Procedures SERVICE DATE: 01/20/2017 INDICATION: This 61-year-old, male with history of chronic tobacco abuse, noncompliant with medications, hypertension, hypertriglyceridemia, persistent tobacco abuse, history of non ST-T SD in April 2014. At that time, patient has moderate mid circumflex disease with evidence of vasospasm, status post left heart catheterization which initially revealed 60% to 70% eccentric mid circumflex disease. However, FFR was not significant. Presented with VFib cardiac arrest. The patient was taken to the vat house laborer to rule out significant coronary artery disease. Benefits and risks of left heart catheterization in anticipation of revascularization discussed with the patient's , which include but are not limited to risk of bleeding, groin complication, myocardial infarction, stroke or , renal insufficiency, and peripheral vascular complication, etc. An informed consent was obtained. She verbalizes all the understanding. All the questions were answered. CHIEF MINISTER: You Hodge MD. PROCEDURE PERFORMED: 1. Left heart catheterization. 2. Coronary arteriography. 3. Left ventricular pressure measurement. 4. Right femoral vein access. PROCEDURE: Left groin was cleaned, prepped, and draped in the usual sterile fashion. The skin and subcutaneous tissue was anesthetized with 1% lidocaine. In that attempt of left femoral artery access, we got initially venous access with micropuncture needle. Using modified Seldinger technique overall 5-Gabonese sheath was introduced into the right femoral vein. Then right femoral artery was accessed. A 6-Gabonese sheath was introduced into the right femoral artery using modified Seldinger technique. The left coronary artery and the right coronary artery were engaged with 6-Gabonese JL4 and JR4 catheters, respectively. Left ventricular pressure measurement were done with 6-Gabonese pigtail catheter. All the catheters were advanced over the guidewire and flushed with heparinized saline. All the exchanges were made over the guidewire. Total 80 cc Isovue 370 dye was used. The patient tolerated the procedure. There was no immediate complication. HEMODYNAMICS: LV systolic pressure about 156 mmHg. Aortic pressure 156/87 mmHg. LVEDP about 26-27 mmHg. Hence, left ventriculography was not performed. CORONARY ARTERIOGRAPHY: 1. Left main artery. The left main artery is a short artery and was free of any significant disease. 2. Left anterior descending artery. The left anterior descending artery is a tortuous artery. It wraps around the apex. Distally it tapers to a small vessel. I do not see any critical focal stenosis. Diagonal branch does not have any critical focal stenosis. 3. Left circumflex artery. The left circumflex artery in the mid portion harbors about 70% to 80% disease. The patient was given 200 mcg of intracoronary nitroglycerin and repeat injection revealed still 60% to 70% eccentric mid circumflex disease. Distally there was ADAM-3 flow. Distally, I do not see any critical disease. 4. Right coronary artery. The right coronary artery is a dominant artery and harbors mild luminal irregularities and was free of any significant disease. CONCLUSION: About 60% to 70% mid circumflex disease after 200 mcg of intracoronary nitroglycerin with some element of spasm as well. There is distally ADAM-3 flow. LAD and dominant right coronary artery does not have any critical disease. Left main does not have any critical disease. Elevated LVEDP. Discussed with Dr. Moya. In the vat house laborer, we found that patient has blood in NG tube. At this point of time, plan is to treat him medically. If no further GI bleed and hemoglobin remains stable, Dr. Moya can plan PCI of the circumflex artery, or if needed FFR maybe tomorrow depending upon the patient's clinical condition. Will also get 2D echo to assess his LV function. You Hodge MD 01/20/17 [id number] <Electronically signed by You Hodge MD> 01/23/17 1256 SERVICE DATE: 01/31/2017 PROCEDURE PERFORMED: 1. Left-sided coronary angiography. 2. Intravascular ultrasound of the circumflex artery. 3. Percutaneous intervention with stent placement to the circumflex artery. INDICATIONS: This is a 61-year-old man with known coronary disease with history now of refractory spasm of the circumflex artery in this case contributing to a primary VF arrest. Based upon this, he presents for further assessment by coronary angiography. DESCRIPTION OF PROCEDURE: Informed consent was obtained. The patient was brought to catheterization laboratory. Bilateral groins were prepped and draped in usual sterile fashion. The right femoral artery was anesthetized with lidocaine and using modified Seldinger technique and a micropuncture kit, access was obtained and a 6-Gabonese sheath was advanced. Next, a 6-Gabonese CLS 3.5 guide was advanced over a wire and used to cannulate the left coronary artery and angiographic views obtained. Heparin was given for anticoagulation. A eCardio wire was advanced across the area of stenosis in the circumflex artery. IVUS was advanced into the distal vessel. The distal vessel appeared in the range of 2.6 to about 2.8. Proximal vessel was closer to 3 mm. In the area of stenosis, the vessel was no greater than 2 mm in diameter. Based upon this, also the evidence of plaque burden extending both in the stenosis and into the areas proximal and distal, plans were made for stenting. The indication for stenting in this case is refractory spasm leading to a life-threatening event in this patient. Heparin was given for anticoagulation. The initial dilation was performed with a 2.5 mm balloon, ultimately, after IVUS assessment and plans were made for a 2.75 mm stent. Therefore a 2.75 x 15 mm Xience stent was carefully placed. This was deployed at nominal pressures and then ultimately post dilated with a noncompliant 2.75 mm balloon to high atmospheres throughout the stented area. After stenting, this gave an excellent angiographic result with no significant residual stenosis, no evidence of dissection, and brisk flow in the artery. There were no compromises of any associated branches as well. The case was ended. The angiographic view of the right femoral access site was reviewed prior to achieving hemostasis with StarClose device. There were no complications. FINDINGS: CORONARIES: 1. Left main. This has no evidence obstructive disease. 2. Circumflex artery. This vessel has evidence of an eccentric stenosis estimated in the range of 50% to 60%. 3. Left anterior descending has no obstructive disease. As noted, the circumflex artery was study with IVUS and there is diffuse plaquing in the area of interest as well as some plaquing present in the vessel distal to the area of stenosis and the area of proximal stenosis. As this was the site for recurrent refractory vasospasms leading to a life-threatening event, plans were made for stenting. As noted, this was predilated with a 2.5 mm balloon, assessed with IVUS, and ultimately treated with a 2.75 mm stent which was then post dilated to high atmospheres with an excellent angiographic result. IMPRESSION: Successful intravascular ultrasound of the circumflex artery with a saphenous circumflex artery, predilation with a balloon followed by stenting with a drug-eluting stent. Lacie June MD 01/31/[address] Quinn on February 01. No complications. Brief History This is a 61-year-old woman with known history of CAD who had an admission for chest pain about 3 years ago with an angiogram revealing nonobstructive coronary artery disease. He was placed on a medical regimen for medical management and continued this until about a year ago. That time he elected to stop because he did not think it was making much of a difference. Today he had developed some indigestion and chest pressure. He took a nitroglycerin had minimal improvement and then collapsed. His notes a 920 in the morning called 911 and the heavy machinery assembler responded within about 5 minutes. No bystander CPR occurred. The heavy machinery assembler to start CPR paramedics arrived shortly thereafter. The patient had ongoing CPR for unclear amount of time and then had defibrillation 2 with ROSC. believes it was about 9:20 AM on the defibrillations were completed. The patient had no meaningful movements or interactions that time. He had been intubated and was taken to the emergency department. He was sedated field. In the emergency department he had an abnormal EKG and was seen by cardiology. He was then placed on the hypothermia protocol and taken to the coronary catheterization lab. There is good indicated significant circumflex disease but no angioplasty or PCI followed. The patient was then brought for already into his hypothermia protocol. The patient was on propofol as well as fentanyl at that point. The patient is also noted to have some froth in his endotracheal tube and required FiO2 of 1.0. There is a concern for pulmonary edema. The patient is said to continue to smoke a daily basis. The patient's family provided most of the information as well as the emergency physician. Patient is intubated and sedated on the hypothermia protocol Review of systems and subjective not otherwise obtainable. Hospital Course 61-year-old male has history of CAD with stent who stopped taking his cardiac medications 1 year ago presents after V. fib arrest with approximate 5 minutes prior to CPR. #. Acute hypoxic respiratory failure secondary to cardiac arrest; present on admission; resolving -Patient graduated from the vent and is currently on high flow oxygen at 15 L -Patient continues to improve and will wean down oxygen as tolerated -CXR mildly improved today with persistent bilateral effusions and edema -Continue to wean O2. Currently 2 L nasal cannula. The patient improved after being supported with mechanical ventilation and ultimately diuresed. The patient continued to have improvement of his oxygenation after extubation. #. Coronary artery disease, present on admission; ongoing -At this point is unclear if the patient had ischemia versus NSTEMI, and troponin reached 0.9 before trending down -Aspirin suppository daily -No Plavix given due to upper GI bleed and cardiology assessment -Started on low-dose metoprolol -Loaded with Plavix yesterday -Stented LAD due to spasm The patient presented with a ventricular fibrillation cardiac arrest. There is no overt evidence of an STEMI. The patient went to coronary catheterization level was found to have a circumflex lesion with ADAM 3 flow on January 20. The patient underwent cooling protocol for his cardiac arrest and did well after rewarming. Ultimately he went back to the Field Adjuster and had stenting of his circumflex vessel is noted in the invasive procedures portion of this note. The patient had placement of an ICD on February 01 for ventricular fibrillation and cardiac arrest. #. Probable acute on chronic systolic heart failure, POA and stable. Echo indicating EF of 35%. The patient was relatively stable throughout hospitalization. He did require some degree of diuresis in the process of weaning his oxygen. #. Ventricular fibrillation Cardiac arrest with pulmonary edema; present on admission; resolved -Resuscitated with defibrillation after more than 5 minutes of rest in the sitting position -Noncritical LCx disease; echo appears to show an EF of 35% -Cardiology consultation and appreciate the recommendations -Hypothermia protocol completed The patient also went back to the coronary catheterization lab for stenting of his mid circumflex lesion. ICD implantation was also completed given his ventricular fibrillation arrest as well as chronic systolic heart failure. #. Circulatory (possibly cardiogenic or sepsis with aspiration pneumonia ) shock ; resolved - Received fluid resuscitation and norepinephrine; now weaned off - Echocardiogram consistent with acute systolic congestive heart failure - Diuresis with Lasix drip initiated 01/25 and stopped 01/28/17 Probable aspiration pneumonia, present on admission. Initially asymmetric but subsequently bibasilar infiltrates with oxygen deficit. Differential is aspiration pneumonia versus CHF. -White count normalized 01/23/17 -Discontinue Zosyn after 9 day course. The patient did improve with antibiotic treatment. Acute blood loss anemia; present on admission; stable. Questionable upper GI bleed with positive Hemoccult; but no evidence of significant melena or hematemesis -As patient was warming his hematocrit dropped by nearly 4 points which is quite large for dilution; Heparin was stopped -Continue Protonix 40 mg twice daily IV -heart healthy diet This remains stable. Type II diabetes; present on admission; ongoing -A1c of 5.8 on 01/20 -Lantus 10 units at bedtime -Low Humulin correctional Exam Vital Signs (Last) Date Time Temp Pulse Resp B/P Pulse Ox O2 Delivery O2 Flow Rate FiO2 02/02/17 11:09 85 02/02/17 08:41 37.1 16 145/81 93 Room Air 02/01/17 13:30 3.00 01/28/17 12:43 60 Exam Patient was seen and examined at discharge. Test 01/20/17 11:38 01/20/17 21:50 01/21/17 04:00 01/21/17 16:00 Urine Color Straw (YELLOW) Urine Appearance Cloudy (CLEAR,HAZY) Urine pH 7.0 (5.0-8.0) Urine Specific [place] 1.020 (1.003-1.035) Urine Protein >300mg/dL (NEG,TRACE) Urine Glucose (UA) 250mg/dL (NEGATIVE) Urine Ketones Negativemg/dL (NEGATIVE) Urine Occult Blood Large (NEGATIVE) Urine Nitrite Negative (NEGATIVE) Urine Bilirubin Negative (NEGATIVE) Urine Urobilinogen Normalmg/dL (NORMAL) Urine Leukocyte Esterase Negative (NEGATIVE) Urine RBC 11-50/hpf (0-2) Urine WBC 0-5/hpf (0-5) Urine Epithelial Cells None/hpf (NONE-MOD) Urine Crystals Amorphous phosphates Urine Bacteria None/hpf (NONE-FEW) Urine Hyaline Casts None/lpf (NONE) Urine Granular Casts None seen (NONE SEEN) Urine Waxy Casts None seen (NONE SEEN) Urine Red Blood Cell Casts None seen (NONE SEEN) Urine White Blood Cell Casts None seen (NONE SEEN) Urine Mucus None seen (None Seen) Urine Trichomonas None seen (NONE SEEN) Urine Yeast None (NONE SEEN) Urinalysis Comment None Urine Culture Reflexed Not indicated Band Neutrophils % 1% (1-5) Total Creatine Kinase 1678U/L (21-232) Creatine Kinase MB 75.9ng/mL (0.0-10.4) Creatine Kinase MB % 4.5% (0.0-5.0) Hold [place] Top Tube Received (Received) Test 01/22/17 02:15 01/22/17 11:01 01/23/17 04:50 01/25/17 06:10 Activated Partial Thromboplast Time 50.6sec (22.8-33.0) Haptoglobin 15mg/dL (34-200) Fibrinogen 428mg/dL (157-380) Lactic Acid Level 2.0mmol/L (0.4-2.0) Prealbumin 10mg/dL (20-40) Hemoglobin A1c 5.8% (4.8-5.6) Test 01/26/17 05:05 01/26/17 21:24 01/28/17 05:05 01/28/17 12:00 Troponin T 0.010ug/L (0.0-0.011) Hold [place] Top Tube Received (Received) Phosphorus Level 3.5mg/dL (2.5-4.9) Pro-B-Type Natriuretic Peptide 866.3pg/mL (0-210) Test 01/30/17 05:00 01/31/17 03:10 02/01/17 05:50 02/02/17 09:04 Hematology Comments Procalcitonin 0.09ng/mL (0.00-0.08) Magnesium Level 2.1mg/dL (1.6-2.6) White Blood Count 7.5th/mm3 (3.8-10.1) Red Blood Count 3.32mil/mm3 (4.40-5.80) Hemoglobin 10.3g/dL (13.8-17.2) Hematocrit 31.6% (41.0-50.0) Mean Corpuscular Volume 95.2fL (81-100) Mean Corpuscular Hemoglobin 31.0pg (27.0-35.0) Mean Corpuscular Hemoglobin Concent 32.6% (32.0-37.0) Red Cell Distribution Width 13.1% (12.3-15.4) Platelet Count 240bil/L (150-400) Neutrophils (%) (Auto) 78.9% (40-74) Lymphocytes (%) (Auto) 7.5% (14-46) Monocytes (%) (Auto) 6.6% (4-12) Eosinophils (%) (Auto) 3.3% (0-5) Basophils (%) (Auto) 0.4% (0-3) Prothrombin Time 10.5sec (8.1-12.5) Prothromb Time International Ratio 0.98ratio Total Bilirubin 0.6mg/dL (0.0-1.2) Aspartate Amino Transf (AST/SGOT) 21U/L (0-50) Alanine Aminotransferase (ALT/SGPT) 26U/L (0-44) Alkaline Phosphatase 101U/L (25-160) Total Protein 6.3g/dL (6.4-8.4) Albumin 3.4g/dL (3.4-5.0) Sodium Level 138mEq/L (134-144) Potassium Level 4.5mEq/L (3.5-5.2) Chloride Level 103mEq/L (97-108) Carbon Dioxide Level 21mmol/L (18-29) Blood Urea Nitrogen 12mg/dL (8-27) Creatinine 0.67mg/dL (0.76-1.27) Estimat Glomerular Filtration Rate 128mL/min (>59) Glucose Level 143mg/dL (60-99) Calcium Level 9.7mg/dL (8.5-10.1) Discharge Medications Discharge Medications ([Aspirin-Expunged Drug, Do Not Renew!]) 325 MG TABLET 325 MG PO DAILY Prescribed by: FRANCK ALVAREZ MD Atorvastatin Calcium (Atorvastatin Calcium) 20 Mg Tablet 20 MG PO HS Prescribed by: FRANCK ALVAREZ MD Clopidogrel (Clopidogrel) 75 Mg Tablet 75 MG PO DAILY Prescribed by: FRANCK ALVAREZ MD Doxycycline Hyclate (Doxycycline Hyclate) 100 Mg Tablet 100 MG PO DAILY Prescribed by: FRANCK ALVAREZ MD Isosorbide DN (Isosorbide DN) 20 Mg Tablet 20 MG PO BID Prescribed by: FRANCK ALVAREZ MD Metoprolol Tartrate (Metoprolol Tartrate) 25 Mg Tablet 12.5 MG PO BID Prescribed by: FRANCK ALVAREZ MD As needed Hydrocodone-Acetaminophen 5-325 mg (Hydrocodone-Acetaminophen 5-325 mg) 1 Each Tablet 1-2 TABLET PO Q4H PRN PRN For MODERATE Pain Prescribed by: FRANCK ALVAREZ MD Nitroglycerin SL (Nitrostat) 0.4 Mg Tab.subl 0.4 MG SL Q5MIN PRN PRN For Chest Pain IF SBP > 90 Take 1 every 5 minutes for chest pain. Call 911 if not resolved after 3. Prescribed by: FRANCK ALVAREZ MD Followup Plan Disposition: Home, with family. Discharge Diet: Heart Healthy, Diabetic Discharge Activity: Limited until seen by PCP Patient Instructions Dr. Quinn on February 10 as scheduled. I will remains in sling for 1 month as noted. Primary care physician within one week. Follow-up Provider: Maurice Ambriz MD Follow-up with PCP in: 1 week Time spent 50 minutes Franck Alvarez MD Feb 02, 2017 15:38
--- NOTE | 2017-02-02 17:33 | NUR ---
Social Work Note: Discharge Data& Assessment: Per MD in multidisciplinary rounds, pt is medically ready to discharge. RUBBER GOODS INSPECTOR TESTER met with pt and pt family at bedside to confirm discharge plan and assess for any unmet needs. Fortino Medel is a 61 year old male admitted on 01/30/2017 for SEISMIC PLOTTER /STEMI. Per MD pt is medically ready to discharge. Pt independent with self care and PT cleared pt to return home when medically ready. Pt and pt family denies any other needs. No other discharge needs or MD orders identified. Plan: Per pt is medically ready to discharge home via POV. Pt and pt family denies any other needs. No other discharge needs or MD orders identified. JAIME Abad
== END 2017-02-02 11:35 | disposition home or self-care (01) | DRG 224 ==
LOC: EDUNIT# 10:00 → SED 10:00 → EDBD 10:00 → PCC 11:10 → CCU 13:05 → PCC 01-27 17:00
PROVIDERS: ADMIT Hospitalist; ATTEND Hospitalist
PROC: 5A1955Z Respiratory Ventilation, Greater than 96 Consecutive Hours (ICD-10-PCS; principal; 2017-01-20)
PROC: 4A023N7 Measurement of Cardiac Sampling and Pressure, Left Heart, Percutaneous Approach (ICD-10-PCS; 2017-01-20)
PROC: 6A4Z0ZZ Hypothermia, Single (ICD-10-PCS; 2017-01-20)
PROC: 4A033R1 Measurement of Arterial Saturation, Peripheral, Percutaneous Approach (ICD-10-PCS; 2017-01-20)
PROC: B2111ZZ Fluoroscopy of Multiple Coronary Arteries using Low Osmolar Contrast (ICD-10-PCS; 2017-01-20)
PROC: 03HY32Z Insertion of Monitoring Device into Upper Artery, Percutaneous Approach (ICD-10-PCS; 2017-01-21)
PROC: 027034Z Dilation of Coronary Artery, One Artery with Drug-eluting Intraluminal Device, Percutaneous Approach (ICD-10-PCS; 2017-01-31)
PROC: B240ZZ3 Ultrasonography of Single Coronary Artery, Intravascular (ICD-10-PCS; 2017-01-31)
PROC: B2101ZZ Fluoroscopy of Single Coronary Artery using Low Osmolar Contrast (ICD-10-PCS; 2017-01-31)
PROC: 0JH608Z Insertion of Defibrillator Generator into Chest Subcutaneous Tissue and Fascia, Open Approach (ICD-10-PCS; 2017-02-01)
PROC: 02HL3KZ Insertion of Defibrillator Lead into Left Ventricle, Percutaneous Approach (ICD-10-PCS; 2017-02-01)
DX: I49.01 Ventricular fibrillation (principal); J96.01 Acute respiratory failure with hypoxia; J69.0 Pneumonitis due to inhalation of food and vomit; I50.1 Left ventricular failure, unspecified; K92.2 Gastrointestinal hemorrhage, unspecified; G93.1 Anoxic brain damage, not elsewhere classified; D62 Acute posthemorrhagic anemia; I50.22 Chronic systolic (congestive) heart failure; I46.2 Cardiac arrest due to underlying cardiac condition; F17.210 Nicotine dependence, cigarettes, uncomplicated; I25.2 Old myocardial infarction; I10 Essential (primary) hypertension; Z91.14 Patient's other noncompliance with medication regimen; E78.1 Pure hyperglyceridemia; E83.39 Other disorders of phosphorus metabolism; I25.111 Atherosclerotic heart disease of native coronary artery with angina pectoris with documented spasm; R73.03 Prediabetes